=== PATIENT | male | born 1950 | race Caucasian/White ===

== ENCOUNTER 2020-08-07 16:54 | Emergency (ER) | payer BC, SELFPAY ==
[2020-08-07 17:12] VITALS: BP 124/72; PULSE 106; RESP 16; TEMP 37.5; O2SAT 98
[2020-08-07 17:17] VITALS: BP 124/72; PULSE 117; RESP 16; TEMP 37.5; O2SAT 95; BMI 27.8
--- NOTE | 2020-08-07 17:32 | XR_ITS ---
EXAMINATION: PORTABLE CHEST 1 VIEW CLINICAL INFORMATION: sob . COMPARISON: No recent pertinent prior studies are available for comparison. TECHNIQUE: Portable frontal view of the chest was obtained. FINDINGS: The lungs are well expanded. Mild chronic appearing reticular markings are seen bilaterally but no superimposed focal infiltrate, effusion, edema, or pneumothorax. Cardiac and mediastinal silhouettes are within normal limits for technique. No acute bony abnormality seen. IMPRESSION: No evidence of acute disease.
--- NOTE | 2020-08-07 17:32 | ECG_ITS ---
Test Reason : WEAKNESS Blood Pressure : / mmHG Vent. Rate : 111 BPM Atrial Rate : 111 BPM P-R Int : 162 ms QRS Dur : 088 ms QT Int : 340 ms P-R-T Axes : 063 026 052 degrees QTc Int : 462 ms Sinus tachycardia Otherwise normal ECG When compared with ECG of 17-FEB-2012 13:49, Vent. rate has increased BY 42 BPM Referred By: Gabriela Hernandez Electronically Signed By:BERTA ART MD
--- NOTE | 2020-08-07 17:38 | ED_ITS ---
HPI - General Adult General Chief complaint: General Medical Stated complaint: COUGH Time Seen by Provider: 08/07/20 17:19 Source: patient Mode of arrival: ambulatory History of Present Illness HPI narrative: 70-year-old male with no significant past medical history presenting to ED complaining of generalized weakness /malaise, fever T-max 101.7?, SOB, dry cough, nausea, and diarrhea x4 days. Reports decreased p.o. intake. Denies chest pain, abdominal pain, LE edema, recent travel, sick contacts Onset (ago): day(s) Related Data Allergies Allergy/AdvReac Type Severity Reaction Status Date / Time lisinopril Allergy Unknown cough Verified 08/07/20 21:10 Sulfa (Sulfonamide Allergy Unknown UNK, Verified 08/07/20 21:10 Antibiotics) unknown [SULFA(SULFONAMIDE ANTIBIOTICS)] Review of Systems Review of Systems: Constitutional: No Weight loss, + Fever, + Chills, No Night Sweats,+ Fatigue, + Malaise ENT/Mouth: No Hearing loss, No Ear Pain, +Nasal Congestion, No Sinus Pain, No Hoarseness, No sore throat Cardiovascular: No Chest Pain, + SOB, No Dyspnea on Exertion, No Orthopnea, No Edema, No Palpitations Respiratory: +Cough, No Sputum, No Wheezing Gastrointestinal: + Nausea, No Vomiting, + Diarrhea, No Constipation, No Abdominal pain Genitourinary: No irregular bleeding, No Dysuria, No Urinary Frequency, No Hematuria, Musculoskeletal: No joint pain, +Myalgias, No Joint Swelling Skin: No Skin Lesions, No rash Neuro: +generalized Weakness, No Numbness, No Paresthesias PMFSH Past Medical History Attestation statement: The following information was validated with the patient. Social History Social History Alcohol intake: current Alcohol intake frequency: 0-2 drinks per day Alcohol type: wine Smoking Status: Never smoker Use of substances other than those prescribed or required for medical reasons: No Advance Directives: No Advance Directives Information Provided: No Physical Exam Vital Signs: Vital Signs: Vital Signs Temp Pulse Resp BP Pulse Ox 08/07/20 22:04 94 08/07/20 22:00 98.6 F 108 H 20 130/75 95 08/07/20 20:00 105 H 20 95 08/07/20 19:30 98.9 F 103 H 20 138/87 97 08/07/20 17:17 99.5 F 117 H 16 124/72 95 08/07/20 17:12 99.5 F 106 H 16 124/72 98 Body Mass Index 27.8 Const: General: cooperative and healthy appearing Orientation/consciousness: patient oriented x3 Limitations: no limitations HENMT: Head: Yes normal to inspection Ears: hearing grossly normal bilaterally General nose exam: Normal external nose present Face and sinus: Yes normal facial exam Eyes: General: appearance normal, both eyes and all related structures EOM: EOMs intact bilaterally Neck: Neck: Yes normal visual inspection Resp: Effort & Inspection: normal respiratory effort Auscultation: clear to auscultation bilaterally, no crackles, no rales and no rhonchi Cardio: Rate: tachycardic Heart sounds: S1 normal heart sound present and S2 normal heart sound present GI: Inspection: Yes normal to inspection Palpation (GI): Soft to palpation, nontender, no guarding and not rigid Skin: Rashes: no rashes Wounds: no wounds Neuro: General: patient oriented x3 Gait exam (Neuro): Normal gait present Extrem: Other: no calf tenderness General: Yes normal to inspection and No edema Course Course Course Narrative: -1937-- leukocytosis of 15.2 > Low concern for severe sepsis as likely etiology is viral, renal function at baseline -troponin elevated 35.8> no priors/no ischemic EKG changes >> will obtain 3 hour repeat - CXR without evidence of acute disease -2216-- lactate 1.1, repeat troponin 29.1>, no delta, [place] unlikely patient ambulated around the ED with pulse ox maintaining saturation of 94% on room air lab and imaging results discussed with patient including worrisome signs and symptoms and strict return precautions. Patient verbalized understanding feel safe for discharge Medical Decision Making [facility] Narrative Medical decision making narrative: 70-year-old male with no significant past medical history presenting to ED complaining of generalized weakness /malaise, fever T-max 101.7?, SOB, dry cough, nausea, and diarrhea x4 days. On exam low- grade temp 99.5?, tachycardic, satting 95% on room air, in no respiratory distress, lungs CTA. Concern for viral syndrome/ COVID-19. Rule out pneumonia /Metabolic abnormalities. Low concern for ACS / PE Plan: EKG, labs, CXR, COVID-19, exercise test with pulse ox, reassess Lab Data Result diagrams: 08/07/20 18:31 08/07/20 18:31 Labs: Lab Results 08/07/20 08/07/20 08/07/20 Range/Units 18:30 18:31 18:31 WBC 15.2 H (4.8-10.8) X10*3/uL RBC 3.97 L (4.60-5.80) X10*6/uL Hgb 13.5 L (14.0-18.0) g/dl Hct 39.0 L (42-52) % MCV 98.2 H (80-98) fL MCH 34.0 H (27.0-33.0) pg MCHC 34.6 (31.0-36.0) g/dl RDW 11.8 (11.0-16.0) % Plt Count 222 (160-400) X10*3/uL MPV 10.5 (9.4-12.4) fL Immature Gran % (Auto) 0.4 (0.0-0.4) % Neut % (Auto) 86.0 H (45-73) % Lymph % (Auto) 5.9 L (20-40) % [place] % (Auto) 7.3 (2-11) % Eos % (Auto) 0.1 (0-4) % Baso % (Auto) 0.3 (0-2) % Lymph # (Auto) 0.9 L (1.2-4.9) X10*3/uL [place] # (Auto) 1.1 (0.1-1.2) X10*3/uL Eos # (Auto) 0.0 (0.0-0.4) X10*3/uL Baso # (Auto) 0.0 (0.0-0.2) X10*3/uL Abs Immat Gran (auto) 0.06 H (0.00-0.03) X10*3/uL Absolute Neuts (auto) 13.1 H (2.0-8.3) X10*3/uL Absolute Nucleated RBC 0.000 (0.0-0.012) X10*3/uL Nucleated RBC % (auto) 0.0 (0.0-0.2) /100WBC Hold Blue Top SEE NOTE Sodium (135-145) mmol/L Potassium (3.3-5.1) mmol/l Chloride (96-108) mmol/L Carbon Dioxide (22-29) mmol/L Anion Gap (12-20) BUN (9-16) mg/dL Creatinine (0.5-1.4) mg/dL Estim Creat Clear Calc Estimated GFR Random Glucose (60-115) mg/dL Lactic Acid (0.5-2.0) mmol/L Calcium (8.4-10.2) mg/dL Magnesium (1.6-2.6) mg/dL Ferritin (20-250) ng/mL Total Bilirubin (0.0-1.0) mg/dL Direct Bilirubin (0.0-0.5) mg/dL AST (5-37) U/L ALT (0-40) U/L Alkaline Phosphatase (39-117) U/L Lactate Dehydrogenase (118-273) U/L Troponin I High Sens 35.8 H (<3.5-35.0) ng/L B-Natriuretic Peptide 43 (<100) pg/mL Total Protein (6.5-8.0) g/dL Albumin (3.5-5.0) g/dL Lipase (8-78) U/L Procalcitonin ng/mL 08/07/20 08/07/20 08/07/20 Range/Units 18:31 18:31 20:48 WBC (4.8-10.8) X10*3/uL RBC (4.60-5.80) X10*6/uL Hgb (14.0-18.0) g/dl Hct (42-52) % MCV (80-98) fL MCH (27.0-33.0) pg MCHC (31.0-36.0) g/dl RDW (11.0-16.0) % Plt Count (160-400) X10*3/uL MPV (9.4-12.4) fL Immature Gran % (Auto) (0.0-0.4) % Neut % (Auto) (45-73) % Lymph % (Auto) (20-40) % [place] % (Auto) (2-11) % Eos % (Auto) (0-4) % Baso % (Auto) (0-2) % Lymph # (Auto) (1.2-4.9) X10*3/uL [place] # (Auto) (0.1-1.2) X10*3/uL Eos # (Auto) (0.0-0.4) X10*3/uL Baso # (Auto) (0.0-0.2) X10*3/uL Abs Immat Gran (auto) (0.00-0.03) X10*3/uL Absolute Neuts (auto) (2.0-8.3) X10*3/uL Absolute Nucleated RBC (0.0-0.012) X10*3/uL Nucleated RBC % (auto) (0.0-0.2) /100WBC Hold Blue Top Sodium 142 (135-145) mmol/L Potassium 4.1 (3.3-5.1) mmol/l Chloride 105 (96-108) mmol/L Carbon Dioxide 25 (22-29) mmol/L Anion Gap 16 (12-20) BUN 27 H (9-16) mg/dL Creatinine 1.79 H (0.5-1.4) mg/dL Estim Creat Clear Calc 43.5 Estimated GFR 38 Random Glucose 134 H (60-115) mg/dL Lactic Acid (0.5-2.0) mmol/L Calcium 9.0 (8.4-10.2) mg/dL Magnesium 2.3 (1.6-2.6) mg/dL Ferritin 393 H (20-250) ng/mL Total Bilirubin 0.7 (0.0-1.0) mg/dL Direct Bilirubin 0.3 (0.0-0.5) mg/dL AST 21 (5-37) U/L ALT 20 (0-40) U/L Alkaline Phosphatase 88 (39-117) U/L Lactate Dehydrogenase 248 (118-273) U/L Troponin I High Sens 29.1 (<3.5-35.0) ng/L B-Natriuretic Peptide (<100) pg/mL Total Protein 7.8 (6.5-8.0) g/dL Albumin 4.6 (3.5-5.0) g/dL Lipase 14 (8-78) U/L Procalcitonin 0.10 ng/mL 08/07/20 Range/Units 20:48 WBC (4.8-10.8) X10*3/uL RBC (4.60-5.80) X10*6/uL Hgb (14.0-18.0) g/dl Hct (42-52) % MCV (80-98) fL MCH (27.0-33.0) pg MCHC (31.0-36.0) g/dl RDW (11.0-16.0) % Plt Count (160-400) X10*3/uL MPV (9.4-12.4) fL Immature Gran % (Auto) (0.0-0.4) % Neut % (Auto) (45-73) % Lymph % (Auto) (20-40) % [place] % (Auto) (2-11) % Eos % (Auto) (0-4) % Baso % (Auto) (0-2) % Lymph # (Auto) (1.2-4.9) X10*3/uL [place] # (Auto) (0.1-1.2) X10*3/uL Eos # (Auto) (0.0-0.4) X10*3/uL Baso # (Auto) (0.0-0.2) X10*3/uL Abs Immat Gran (auto) (0.00-0.03) X10*3/uL Absolute Neuts (auto) (2.0-8.3) X10*3/uL Absolute Nucleated RBC (0.0-0.012) X10*3/uL Nucleated RBC % (auto) (0.0-0.2) /100WBC Hold Blue Top Sodium (135-145) mmol/L Potassium (3.3-5.1) mmol/l Chloride (96-108) mmol/L Carbon Dioxide (22-29) mmol/L Anion Gap (12-20) BUN (9-16) mg/dL Creatinine (0.5-1.4) mg/dL Estim Creat Clear Calc Estimated GFR Random Glucose (60-115) mg/dL Lactic Acid 1.1 (0.5-2.0) mmol/L Calcium (8.4-10.2) mg/dL Magnesium (1.6-2.6) mg/dL Ferritin (20-250) ng/mL Total Bilirubin (0.0-1.0) mg/dL Direct Bilirubin (0.0-0.5) mg/dL AST (5-37) U/L ALT (0-40) U/L Alkaline Phosphatase (39-117) U/L Lactate Dehydrogenase (118-273) U/L Troponin I High Sens (<3.5-35.0) ng/L B-Natriuretic Peptide (<100) pg/mL Total Protein (6.5-8.0) g/dL Albumin (3.5-5.0) g/dL Lipase (8-78) U/L Procalcitonin ng/mL Discharge Plan Discharge Clinical Impression: Acute viral syndrome
[2020-08-07 18:38] LABS: MANUAL DIFF FLAG NO
[2020-08-07 18:40] LABS: Basophils Percent Auto 0.3 % (0-2); Eosinophils Percent Auto 0.1 % (0-4); Hemoglobin 13.5 g/dl (14.0-18.0); Imm Gran Abs Auto 0.06 X10*3/uL (0.00-0.03); Imm Gran Pct Auto 0.4 % (0.0-0.4); Lymphocytes Absolute Auto 0.9 X10*3/uL (1.2-4.9); Lymphocytes Percent Auto 5.9 % (20-40); Mean Corpuscular HGB Conc 34.6 g/dl (31.0-36.0); Mean Corpuscular Volume 98.2 fL (80-98); Mean Platelet Volume 10.5 fL (9.4-12.4); Monocytes Absolute Auto 1.1 X10*3/uL (0.1-1.2); Monocytes Percent Auto 7.3 % (2-11); Neutrophils Absolute Auto 13.1 X10*3/uL (2.0-8.3); Platelet Count 222 X10*3/uL (160-400); Red Blood Count 3.97 X10*6/uL (4.60-5.80); Red Cell Distribution Width 11.8 % (11.0-16.0); White Blood Count 15.2 X10*3/uL (4.8-10.8)
[2020-08-07 19:07] LABS: Alanine Aminotransferase 20 U/L (0-40); Albumin Level 4.6 g/dL (3.5-5.0); Alkaline Phosphatase 88 U/L (39-117); Anion Gap 16 (12-20); Aspartate Amino Transferase 21 U/L (5-37); Bilirubin Direct 0.3 mg/dL (0.0-0.5); Bilirubin Total 0.7 mg/dL (0.0-1.0); Blood Urea Nitrogen 27 mg/dL (9-16); Carbon Dioxide 25 mmol/L (22-29); Chloride 105 mmol/L (96-108); Creatinine Clr Calc Pharmacy 43.5; Estimated Glomerular Filt Rate 38; Glucose Random 134 mg/dL (60-115); Lactate Dehydrogenase 248 U/L (118-273); Lipase 14 U/L (8-78); Magnesium 2.3 mg/dL (1.6-2.6); Potassium 4.1 mmol/l (3.3-5.1); Sodium 142 mmol/L (135-145); Total Protein 7.8 g/dL (6.5-8.0)
[2020-08-07] MEDS: 0.9 % Sodium Chloride 500 ML 999 ML IVCONT (19:26)
[2020-08-07 19:28] LABS: Ferritin 393 ng/mL (20-250)
[2020-08-07 19:30] VITALS: BP 138/87; PULSE 103; RESP 20; TEMP 37.2; O2SAT 97
[2020-08-07 19:37] LABS: B Type Natriuretic Peptide 43 pg/mL (<100); Troponin-I High Sensitivity 35.8 ng/L (<3.5-35.0)
[2020-08-07 20:00] VITALS: PULSE 105; RESP 20; O2SAT 95
[2020-08-07 21:13] LABS: Lactic Acid 1.1 mmol/L (0.5-2.0)
[2020-08-07 21:49] LABS: Troponin-I High Sensitivity 29.1 ng/L (<3.5-35.0)
[2020-08-07 22:00] VITALS: BP 130/75; PULSE 108; RESP 20; TEMP 37; O2SAT 95
[2020-08-07 22:04] VITALS: O2SAT 94
--- NOTE | 2020-08-07 22:04 | PC.NURSE ---
Pt ambulating in room, maintained sat at 94% or higher on room air. emilio morales aware
== END 2020-08-07 23:40 | disposition home or self-care (01) ==
PROVIDERS: Physician Assistant; Emergency Provider Emergency Medicine; PCP Internal Medicine
DX: B34.9 Viral infection, unspecified (principal); Z20.828 Contact with and (suspected) exposure to other viral communicable diseases; R50.9 Fever, unspecified
CPT/HCPCS: 36415; 71045; 80048; 80076; 82728; 83605; 83615; 83690; 83735; 83880; 84145; 84484; 85025; 87635; 93005; 99284

== ENCOUNTER 2020-08-12 12:12 | Outpatient (REF) | payer BC, SELFPAY ==
[2020-08-12 14:55] LABS: Influenza A PCR NEGATIVE (Negative); Influenza B PCR NEGATIVE (Negative)
[2020-08-12 15:03] LABS: Resp Syncy Virus RNA Qual PCR NEGATIVE (Negative)
== END 2020-08-12 12:13 | disposition home or self-care (01) ==
LOC: HO.LAB 12:12
PROVIDERS: Visit Provider Nurse Practitioner Family
DX: Z20.828 Contact with and (suspected) exposure to other viral communicable diseases (principal); R50.9 Fever, unspecified
CPT/HCPCS: 87631; 87635

== ENCOUNTER 2020-08-17 08:31 | Inpatient (IN) | payer BC, SELFPAY ==
[2020-08-17] VITALS (11 sets, daily range): BP systolic 143–186; BP diastolic 84–111; PULSE 95–105; RESP 16–20; TEMP 36.3–37.7; O2SAT 94–100; BMI 25.6
--- NOTE | 2020-08-17 08:56 | ECG_ITS ---
Test Reason : UPPER RESP Blood Pressure : / mmHG Vent. Rate : 108 BPM Atrial Rate : 108 BPM P-R Int : 140 ms QRS Dur : 088 ms QT Int : 402 ms P-R-T Axes : 063 037 -08 degrees QTc Int : 538 ms Sinus tachycardia with Premature supraventricular complexes T wave abnormality, consider anterolateral ischemia Abnormal ECG When compared with ECG of 07-AUG-2020 17:55, Premature supraventricular complexes are now Present Inverted T waves have replaced nonspecific T wave abnormality in Inferior leads T wave inversion now evident in Anterolateral leads Referred By: Dara Edward Electronically Signed By:BERTA ART MD
--- NOTE | 2020-08-17 08:58 | ED_ITS ---
HPI - URI/Sore Throat General Chief Complaint: Upper Respiratory Symptoms Stated Complaint: sob,cough,fever Time Seen by Provider: 08/17/20 08:41 Source: patient Mode of arrival: ambulatory Limitations: no limitations History of Present Illness HPI Narrative: 70-year-old male with a past medical history of hypertension, CKD, and osteoporosis here with multiple complaints. The patient tells me starting August 04 he had fever, diarrhea, chills. he was seen here August 07 and had labs, COVID testing and chest x-ray. He was sent home with supportive care. His initial COVID test was negative. He was seen at Urgent Care on August 12 and was tested for COVID and flu which were negative again. He did speak to his primary care doctor and they did a 5 day course of azithromycin which he completed yesterday. He tells me he continues to have intermittent fevers with a max temp of 101.7 degrees. These do not occur every day and he may go 1 or 2 days without a fever. When he has a fever he will have chills and body aches. He has had intermittent diarrhea with up to 2 episodes daily and generalized abdominal pain with no vomiting. He also has shortness of breath with exertion. He tells me he can only walk 4-5 steps and experiences dyspnea with cough. He does have albuterol inhaler at home which she has been using every 4-6 hours with continued dry cough. No chest pain. No leg pain or swelling. He has had a 10lb weight loss in last 2 weeks. MD elicited complaint: fever and cough Onset (ago): week(s) Consistency: intermittent Severity: mild Able to tolerate fluids by mouth: Yes Exacerbating factors: exertion and speaking Relieving factors: rest Associated symptoms: fever, chills, myalgias, cough, shortness of breath, abdominal pain and diarrhea Treatments prior to arrival: none Related Data Home Medications Medication Instructions Recorded Confirmed colchicine 0.6 mg tablet 0.6 mg PO DAILY PRN 08/12/20 08/17/20 denosumab 60 mg/mL subcutaneous 60 mg SUBCUT [id number] 08/12/20 08/17/20 syringe losartan 50 mg tablet 50 mg PO DAILY 08/12/20 08/17/20 Previous Rx's Medication Instructions Recorded albuterol sulfate 2 puff INHALATION Q4-6H PRN #6.7 g 08/07/20 benzonatate [Tessalon Perles] 100 mg PO BID PRN #14 cap 08/07/20 ondansetron 4 mg disintegrating 4 mg PO Q6H PRN #60 tab 08/12/20 tablet Allergies Allergy/AdvReac Type Severity Reaction Status Date / Time lisinopril Allergy Unknown cough Verified 08/12/20 11:44 Sulfa (Sulfonamide Allergy Unknown UNK, Verified 08/12/20 11:44 Antibiotics) unknown [SULFA(SULFONAMIDE ANTIBIOTICS)] Review of Systems Constitutional: Constitutional: Reports no additional constitutional complaints, Reports body ache(s), Reports chills, Reports fatigue, Reports fever(s), Denies headache(s) and Denies weakness Eyes: Eyes: Reports no additional eye complaints and Denies change in vision ENT: Reports system reviewed and no additional complaints, except as documented, Denies ear discharge, Denies otalgia, Denies headache(s) and Denies sore throat Cardiovascular: Cardiovascular: Reports no additional cardiovascular complaints, Denies chest pain, Denies pedal edema, Denies leg edema, Denies lightheadedness and Reports dyspnea on exertion Respiratory: Respiratory: Reports no additional respiratory complaints, Reports cough and Reports dyspnea on exertion Gastrointestinal: Gastrointestinal: Reports no additional gastrointestinal complaints, Reports abdominal pain, Reports diarrhea, Denies nausea and Denies vomiting Genitourinary: Genitourinary: Reports no additional male genitourinary complaints, Denies dysuria, Denies flank pain, Denies urinary frequency, Denies urinary hesitancy, Denies urinary incontinence and Denies urinary urgency Musculoskeletal: Musculoskeletal: Reports no additional musculoskeletal complaints, Denies back pain, Denies arthralgias, Denies joint swelling, Denies numbness, Denies radiating pain into limb and Denies tingling Integumentary/Breasts: Skin/Breast: Reports system reviewed and no additional complaints, except as docu and Denies rash Neurologic: Reports system reviewed and no additional complaints, except as documented, Denies Abnormal speech present, Denies headache(s), Denies numbness, Denies tingling and Denies weakness Endocrine: Endocrine: Reports fatigue PMFSH Past Medical History Attestation statement: The following information was validated with the patient. Source: old records reviewed, obtained from family and nursing notes reviewed Medical History (Updated 08/17/20 @ 14:47 by Faye Childers NP) Hypertension Osteoporosis Surgical History (Updated 08/17/20 @ 09:10 by Dara Edward NP) History of appendectomy Family History Family History (Updated 08/17/20 @ 14:22 by Faye Childers NP) Brother Coronary artery disease Social History Social History Alcohol intake: current Alcohol intake frequency: 0-2 drinks per day Alcohol type: wine Smoking Status: Never smoker Use of substances other than those prescribed or required for medical reasons: No Advance Directives: Yes Advance Directives Information Provided: Yes Advance Directives on File: No Physical Exam Vital Signs: Vital Signs: Vital Signs Temp Pulse Resp BP Pulse Ox 08/17/20 14:52 99.4 F 99 18 144/86 H 08/17/20 13:06 99.2 F 100 16 163/90 H 100 08/17/20 11:56 99.9 F 102 H 18 153/84 H 94 08/17/20 10:25 105 H 18 162/95 H 08/17/20 09:34 97 08/17/20 08:44 98.1 F 95 18 186/100 H 97 Body Mass Index 25.6 Const: General: cooperative, healthy appearing, comfortable and no acute distress Orientation/consciousness: patient oriented x3 Limitations: no limitations HENMT: Head: Yes normal to inspection Ears: hearing grossly normal bilaterally General nose exam: Normal external nose present Face and sinus: Yes normal facial exam Mouth: Normal oral and palatal mucosa present Throat: Yes posterior oropharynx normal Eyes: General: appearance normal, both eyes and all related structures Pupils: Equal, round and reactive pupils present Neck: Neck: Yes normal visual inspection Chest: Chest palpation & inspection: normal inspection of the chest Resp: Other: Frequent bronchospastic cough. The patient speaks full sentences but at the and has to pause to catch his breath. Effort & Inspection: normal respiratory effort Auscultation: clear to auscultation bilaterally Cardio: Rate: regular rate Rhythm: regular rhythm Peripheral pulses: Peripheral pulses 2+ throughout GI: Inspection: Yes normal to inspection Palpation (GI): Soft to palpation and Tenderness to palpation present (GI) ( mild diffuse tenderness. No rebound or guarding.) Auscultation: normal bowel sounds Back/Spine/Pelvis: Thoracic/Lumbar Spine: thoracic and lumbar spine normal to inspection Skin: General skin exam: no rashes or lesions noted Neuro: General: patient oriented x3, no focal motor deficits and normal sensation to monofilament Cranial nerves: Yes Equal, round and reactive pupils present Cognition (Neuro): normal cognition Speech: No Abnormal speech present Gait exam (Neuro): Normal gait present Motor exam (neuro): 5/5 motor strength present throughout Extrem: General: Yes normal to inspection Course Course Course Narrative: 70-year-old male here with complaints of intermittent fever, dry cough, shortness of breath with exertion, diarrhea and abdominal pain for the last few weeks with negative COVID testing and x-rays. Completed a course of antibiotics with continued symptoms. On arrival the patient is alert and oriented. He has no fever on arrival. He does have some mild tachypnea and general abdominal pain with no focal belly pain. Will need labs including blood cultures, lactic acid, EKG and chest x-ray. Will likely need additional imaging of chest and abdomen and pelvis. 1000- Labs show an elevated BNP and troponin. EKG shows nonspecific changes wi th no focal ischemia. The patient denies chest pain. Unclear source. Chest x- ray not consistent with vascular congestion. Patient has no history of CHF or complaints of chest pain. Added on laboratory markers and D-dimer. chest x-ray looks like a possible left lower lobe pneumonia however will check chest CT and CT abdomen and pelvis. Antibiotics ordered for presumed PNA. 1050- D-dimer elevated. Added on V/Q scan as cannot do a CTA with patient's baseline renal function. 1145- CT chest shows emphysema, patchy ground-glass opacities in both upper lobes and patchy consolidation in the left lower lobe. May represent small c consolidation. Viral panel added. May be from viral source however cannot completely rule out an underlying bacterial process. Antibiotics have already b een ordered. V/Q scan shows high probability bilateral pulmonary embolisms. patient ambulated around the room with significant shortness of breath and room air saturation 93-94%. will need admission. Call out to hospitalist to discuss. Heparin ordered. 1200-3hr troponin pending. 1400- repeat troponin trending down. Viral respiratory panel unremarkable. Discussed with Faye VICKERS who accepted admission. CCT 30 minutes (multiple re-evaluations, review of imaging, discussion with radiologist). MDM - URI/Sore Throat MDM Narrative Medical decision making narrative: Considered viral syndrome, underlying bacterial process ( pneumonia / UTI,), CHF, PE, diverticulitis versus ischemic colitis Viral panel negative however may be false negative as patient has COVID symptoms with imaging concerning for COVID. less likely CHF with no signs or symptoms of fluid overload and only mildly elevated BNP. Less likely diverticulitis or ischemic colitis unremarkable abdomen imaging. Medical Records Attestation: I reviewed the patient's medical records. Lab Data Attestation: I reviewed the patient's lab results. Result diagrams: 08/17/20 13:05 08/17/20 09:06 Labs: Lab Results 08/17/20 08/17/20 08/17/20 Range/Units 09:06 09:06 09:06 WBC 11.4 H (4.8-10.8) X10*3/uL RBC 3.61 L (4.60-5.80) X10*6/uL Hgb 11.8 L (14.0-18.0) g/dl Hct 35.3 L (42-52) % MCV 97.8 (80-98) fL MCH 32.7 (27.0-33.0) pg MCHC 33.4 (31.0-36.0) g/dl RDW 11.7 (11.0-16.0) % Plt Count 410 H D (160-400) X10*3/uL MPV 10.6 (9.4-12.4) fL Immature Gran % (Auto) 0.4 (0.0-0.4) % Neut % (Auto) 79.4 H (45-73) % Lymph % (Auto) 10.0 L (20-40) % [place] % (Auto) 9.2 (2-11) % Eos % (Auto) 0.6 (0-4) % Baso % (Auto) 0.4 (0-2) % Lymph # (Auto) 1.1 L (1.2-4.9) X10*3/uL [place] # (Auto) 1.0 (0.1-1.2) X10*3/uL Eos # (Auto) 0.1 (0.0-0.4) X10*3/uL Baso # (Auto) 0.1 (0.0-0.2) X10*3/uL Abs Immat Gran (auto) 0.04 H (0.00-0.03) X10*3/uL Absolute Neuts (auto) 9.0 H (2.0-8.3) X10*3/uL Absolute Nucleated RBC 0.000 (0.0-0.012) X10*3/uL Nucleated RBC % (auto) 0.0 (0.0-0.2) /100WBC ESR (0-15) MM/HR PT 17.7 H (10.8-13.0) SEC INR 1.5 H (0.9-1.1) APTT 31.8 (24.1-38.0) SEC PTT (Heparin Protocol) (53-77.9) SEC D-Dimer 2309 NG/ML Sodium 140 (135-145) mmol/L Potassium 4.2 (3.3-5.1) mmol/l Chloride 106 (96-108) mmol/L Carbon Dioxide 21 L (22-29) mmol/L Anion Gap 17 (12-20) BUN 30 H (9-16) mg/dL Creatinine 1.89 H (0.5-1.4) mg/dL Estim Creat Clear Calc 38.0 Estimated GFR 36 Random Glucose 137 H (60-115) mg/dL Lactic Acid (0.5-2.0) mmol/L Calcium 8.3 L (8.4-10.2) mg/dL Magnesium 2.6 (1.6-2.6) mg/dL Total Bilirubin 0.6 (0.0-1.0) mg/dL Direct Bilirubin 0.3 (0.0-0.5) mg/dL AST 27 (5-37) U/L ALT 53 H (0-40) U/L Alkaline Phosphatase 82 (39-117) U/L Troponin I High Sens (<3.5-35.0) ng/L C-Reactive Protein 11.56 H (< or = 0.50) mg/dL B-Natriuretic Peptide (<100) pg/mL Total Protein 7.0 (6.5-8.0) g/dL Albumin 3.8 (3.5-5.0) g/dL Lipase 22 (8-78) U/L Urine Color Urine Appearance Urine pH (5.0-8.0) Ur Specific [place] (1.005-1.025) Urine Protein (NEG-TRACE) MG/DL Urine Glucose (UA) (NEG) MG/DL Urine Ketones (NEG) MG/DL Urine Blood (NEG) Urine Nitrite (NEG) Ur Leukocyte Esterase (NEG) Urine RBC (0) /HPF Urine WBC (0-4) /HPF Ur Squamous Epith Cells /LPF Urine Bacteria /LPF Urine Mucus /LPF Respiratory Panel [place] Adenovirus (Rapid PCR) (Not Detect.) B.pert (TEM-PCR) (Not Detect.) B.parapertussis DNA PCR (Not Detect.) C. pneumoniae DNA (PCR) (Not Detect.) Coronavirus OC43 (PCR) (Not Detect.) Coronavirus HKU1 (PCR) (Not Detect.) Coronavirus 229E (PCR) (Not Detect.) Coronavirus NL63 (PCR) (Not Detect.) Human Metapneumovir PCR (Not Detect.) Influenza A (RT-PCR) (Not Detect.) Influenza B (RT-PCR) (Not Detect.) M. pneumoniae (PCR) (Not Detect.) Parainfluenza 1 (PCR) (Not Detect.) Parainfluenza 2 (PCR) (Not Detect.) Parainfluenza 3 (PCR) (Not Detect.) Parainfluenza 4 (PCR) (Not Detect.) RSV (PCR) (Not Detect.) Entero/Rhino (PCR) (Not Detect.) SARS-CoV-2 RNA (RT-PCR) (Not Detect.) 08/17/20 08/17/20 08/17/20 Range/Units 09:06 09:07 09:07 WBC (4.8-10.8) X10*3/uL RBC (4.60-5.80) X10*6/uL Hgb (14.0-18.0) g/dl Hct (42-52) % MCV (80-98) fL MCH (27.0-33.0) pg MCHC (31.0-36.0) g/dl RDW (11.0-16.0) % Plt Count (160-400) X10*3/uL MPV (9.4-12.4) fL Immature Gran % (Auto) (0.0-0.4) % Neut % (Auto) (45-73) % Lymph % (Auto) (20-40) % [place] % (Auto) (2-11) % Eos % (Auto) (0-4) % Baso % (Auto) (0-2) % Lymph # (Auto) (1.2-4.9) X10*3/uL [place] # (Auto) (0.1-1.2) X10*3/uL Eos # (Auto) (0.0-0.4) X10*3/uL Baso # (Auto) (0.0-0.2) X10*3/uL Abs Immat Gran (auto) (0.00-0.03) X10*3/uL Absolute Neuts (auto) (2.0-8.3) X10*3/uL Absolute Nucleated RBC (0.0-0.012) X10*3/uL Nucleated RBC % (auto) (0.0-0.2) /100WBC ESR 63 H (0-15) MM/HR PT (10.8-13.0) SEC INR (0.9-1.1) APTT (24.1-38.0) SEC PTT (Heparin Protocol) (53-77.9) SEC D-Dimer NG/ML Sodium (135-145) mmol/L Potassium (3.3-5.1) mmol/l Chloride (96-108) mmol/L Carbon Dioxide (22-29) mmol/L Anion Gap (12-20) BUN (9-16) mg/dL Creatinine (0.5-1.4) mg/dL Estim Creat Clear Calc Estimated GFR Random Glucose (60-115) mg/dL Lactic Acid 1.7 (0.5-2.0) mmol/L Calcium (8.4-10.2) mg/dL Magnesium (1.6-2.6) mg/dL Total Bilirubin (0.0-1.0) mg/dL Direct Bilirubin (0.0-0.5) mg/dL AST (5-37) U/L ALT (0-40) U/L Alkaline Phosphatase (39-117) U/L Troponin I High Sens 422.3 H D (<3.5-35.0) ng/L C-Reactive Protein (< or = 0.50) mg/dL B-Natriuretic Peptide 487 H (<100) pg/mL Total Protein (6.5-8.0) g/dL Albumin (3.5-5.0) g/dL Lipase (8-78) U/L Urine Color Urine Appearance Urine pH (5.0-8.0) Ur Specific [place] (1.005-1.025) Urine Protein (NEG-TRACE) MG/DL Urine Glucose (UA) (NEG) MG/DL Urine Ketones (NEG) MG/DL Urine Blood (NEG) Urine Nitrite (NEG) Ur Leukocyte Esterase (NEG) Urine RBC (0) /HPF Urine WBC (0-4) /HPF Ur Squamous Epith Cells /LPF Urine Bacteria /LPF Urine Mucus /LPF Respiratory Panel [place] Adenovirus (Rapid PCR) (Not Detect.) B.pert (TEM-PCR) (Not Detect.) B.parapertussis DNA PCR (Not Detect.) C. pneumoniae DNA (PCR) (Not Detect.) Coronavirus OC43 (PCR) (Not Detect.) Coronavirus HKU1 (PCR) (Not Detect.) Coronavirus 229E (PCR) (Not Detect.) Coronavirus NL63 (PCR) (Not Detect.) Human Metapneumovir PCR (Not Detect.) Influenza A (RT-PCR) (Not Detect.) Influenza B (RT-PCR) (Not Detect.) M. pneumoniae (PCR) (Not Detect.) Parainfluenza 1 (PCR) (Not Detect.) Parainfluenza 2 (PCR) (Not Detect.) Parainfluenza 3 (PCR) (Not Detect.) Parainfluenza 4 (PCR) (Not Detect.) RSV (PCR) (Not Detect.) Entero/Rhino (PCR) (Not Detect.) SARS-CoV-2 RNA (RT-PCR) (Not Detect.) 08/17/20 08/17/20 08/17/20 Range/Units 11:46 12:06 13:05 WBC 12.1 H (4.8-10.8) X10*3/uL RBC 3.16 L (4.60-5.80) X10*6/uL Hgb 10.6 L (14.0-18.0) g/dl Hct 30.7 L (42-52) % MCV 97.2 (80-98) fL MCH 33.5 H (27.0-33.0) pg MCHC 34.5 (31.0-36.0) g/dl RDW 11.7 (11.0-16.0) % Plt Count 361 (160-400) X10*3/uL MPV 10.5 (9.4-12.4) fL Immature Gran % (Auto) (0.0-0.4) % Neut % (Auto) (45-73) % Lymph % (Auto) (20-40) % [place] % (Auto) (2-11) % Eos % (Auto) (0-4) % Baso % (Auto) (0-2) % Lymph # (Auto) (1.2-4.9) X10*3/uL [place] # (Auto) (0.1-1.2) X10*3/uL Eos # (Auto) (0.0-0.4) X10*3/uL Baso # (Auto) (0.0-0.2) X10*3/uL Abs Immat Gran (auto) (0.00-0.03) X10*3/uL Absolute Neuts (auto) (2.0-8.3) X10*3/uL Absolute Nucleated RBC 0.000 (0.0-0.012) X10*3/uL Nucleated RBC % (auto) 0.0 (0.0-0.2) /100WBC ESR (0-15) MM/HR PT (10.8-13.0) SEC INR (0.9-1.1) APTT (24.1-38.0) SEC PTT (Heparin Protocol) (53-77.9) SEC D-Dimer NG/ML Sodium (135-145) mmol/L Potassium (3.3-5.1) mmol/l Chloride (96-108) mmol/L Carbon Dioxide (22-29) mmol/L Anion Gap (12-20) BUN (9-16) mg/dL Creatinine (0.5-1.4) mg/dL Estim Creat Clear Calc Estimated GFR Random Glucose (60-115) mg/dL Lactic Acid (0.5-2.0) mmol/L Calcium (8.4-10.2) mg/dL Magnesium (1.6-2.6) mg/dL Total Bilirubin (0.0-1.0) mg/dL Direct Bilirubin (0.0-0.5) mg/dL AST (5-37) U/L ALT (0-40) U/L Alkaline Phosphatase (39-117) U/L Troponin I High Sens 271.2 H (<3.5-35.0) ng/L C-Reactive Protein (< or = 0.50) mg/dL B-Natriuretic Peptide (<100) pg/mL Total Protein (6.5-8.0) g/dL Albumin (3.5-5.0) g/dL Lipase (8-78) U/L Urine Color Urine Appearance Urine pH (5.0-8.0) Ur Specific [place] (1.005-1.025) Urine Protein (NEG-TRACE) MG/DL Urine Glucose (UA) (NEG) MG/DL Urine Ketones (NEG) MG/DL Urine Blood (NEG) Urine Nitrite (NEG) Ur Leukocyte Esterase (NEG) Urine RBC (0) /HPF Urine WBC (0-4) /HPF Ur Squamous Epith Cells /LPF Urine Bacteria /LPF Urine Mucus /LPF Respiratory Panel Reynolds See Note Adenovirus (Rapid PCR) Not Detected (Not Detect.) B.pert (TEM-PCR) Not Detected (Not Detect.) B.parapertussis DNA PCR Not Detected (Not Detect.) C. pneumoniae DNA (PCR) Not Detected (Not Detect.) Coronavirus OC43 (PCR) Not Detected (Not Detect.) Coronavirus HKU1 (PCR) Not Detected (Not Detect.) Coronavirus 229E (PCR) Not Detected (Not Detect.) Coronavirus NL63 (PCR) Not Detected (Not Detect.) Human Metapneumovir PCR Not Detected (Not Detect.) Influenza A (RT-PCR) Not Detected (Not Detect.) Influenza B (RT-PCR) Not Detected (Not Detect.) M. pneumoniae (PCR) Not Detected (Not Detect.) Parainfluenza 1 (PCR) Not Detected (Not Detect.) Parainfluenza 2 (PCR) Not Detected (Not Detect.) Parainfluenza 3 (PCR) Not Detected (Not Detect.) Parainfluenza 4 (PCR) Not Detected (Not Detect.) RSV (PCR) Not Detected (Not Detect.) Entero/Rhino (PCR) Not Detected (Not Detect.) SARS-CoV-2 RNA (RT-PCR) Not Detected (Not Detect.) 08/17/20 08/17/20 Range/Units 13:05 14:05 WBC (4.8-10.8) X10*3/uL RBC (4.60-5.80) X10*6/uL Hgb (14.0-18.0) g/dl Hct (42-52) % MCV (80-98) fL MCH (27.0-33.0) pg MCHC (31.0-36.0) g/dl RDW (11.0-16.0) % Plt Count (160-400) X10*3/uL MPV (9.4-12.4) fL Immature Gran % (Auto) (0.0-0.4) % Neut % (Auto) (45-73) % Lymph % (Auto) (20-40) % [place] % (Auto) (2-11) % Eos % (Auto) (0-4) % Baso % (Auto) (0-2) % Lymph # (Auto) (1.2-4.9) X10*3/uL [place] # (Auto) (0.1-1.2) X10*3/uL Eos # (Auto) (0.0-0.4) X10*3/uL Baso # (Auto) (0.0-0.2) X10*3/uL Abs Immat Gran (auto) (0.00-0.03) X10*3/uL Absolute Neuts (auto) (2.0-8.3) X10*3/uL Absolute Nucleated RBC (0.0-0.012) X10*3/uL Nucleated RBC % (auto) (0.0-0.2) /100WBC ESR (0-15) MM/HR PT 19.7 H (10.8-13.0) SEC INR 1.7 H (0.9-1.1) APTT (24.1-38.0) SEC PTT (Heparin Protocol) 67.1 (53-77.9) SEC D-Dimer NG/ML Sodium (135-145) mmol/L Potassium (3.3-5.1) mmol/l Chloride (96-108) mmol/L Carbon Dioxide (22-29) mmol/L Anion Gap (12-20) BUN (9-16) mg/dL Creatinine (0.5-1.4) mg/dL Estim Creat Clear Calc Estimated GFR Random Glucose (60-115) mg/dL Lactic Acid (0.5-2.0) mmol/L Calcium (8.4-10.2) mg/dL Magnesium (1.6-2.6) mg/dL Total Bilirubin (0.0-1.0) mg/dL Direct Bilirubin (0.0-0.5) mg/dL AST (5-37) U/L ALT (0-40) U/L Alkaline Phosphatase (39-117) U/L Troponin I High Sens (<3.5-35.0) ng/L C-Reactive Protein (< or = 0.50) mg/dL B-Natriuretic Peptide (<100) pg/mL Total Protein (6.5-8.0) g/dL Albumin (3.5-5.0) g/dL Lipase (8-78) U/L Urine Color YELLOW Urine Appearance CLEAR Urine pH 5.5 (5.0-8.0) Ur Specific [place] 1.020 (1.005-1.025) Urine Protein TRACE (NEG-TRACE) MG/DL Urine Glucose (UA) NEG (NEG) MG/DL Urine Ketones 5 (NEG) MG/DL Urine Blood TRACE (NEG) Urine Nitrite NEG (NEG) Ur Leukocyte Esterase NEG (NEG) Urine RBC 0-2 (0) /HPF Urine WBC 0-2 (0-4) /HPF Ur Squamous Epith Cells NONE /LPF Urine Bacteria NONE /LPF Urine Mucus 1+ /LPF Respiratory Panel [place] Adenovirus (Rapid PCR) (Not Detect.) B.pert (TEM-PCR) (Not Detect.) B.parapertussis DNA PCR (Not Detect.) C. pneumoniae DNA (PCR) (Not Detect.) Coronavirus OC43 (PCR) (Not Detect.) Coronavirus HKU1 (PCR) (Not Detect.) Coronavirus 229E (PCR) (Not Detect.) Coronavirus NL63 (PCR) (Not Detect.) Human Metapneumovir PCR (Not Detect.) Influenza A (RT-PCR) (Not Detect.) Influenza B (RT-PCR) (Not Detect.) M. pneumoniae (PCR) (Not Detect.) Parainfluenza 1 (PCR) (Not Detect.) Parainfluenza 2 (PCR) (Not Detect.) Parainfluenza 3 (PCR) (Not Detect.) Parainfluenza 4 (PCR) (Not Detect.) RSV (PCR) (Not Detect.) Entero/Rhino (PCR) (Not Detect.) SARS-CoV-2 RNA (RT-PCR) (Not Detect.) Imaging Data CT abd/chest: Attestation: I personally reviewed and interpreted this imaging study as follows: Radiologist's impression: EXAMINATION: CT CHEST, ABDOMEN AND PELVIS WITHOUT CONTRAST. CLINICAL INFORMATION: Fevers known etiology. SOB. Rule out pneumonia. COMPARISON: None TECHNIQUE: 5 mm thin axial and reformatted 3 mm thin sagittal and coronal images of chest, abdomen and pelvis were obtained. DLP 1010 mGy FINDINGS: Chest: There is centrilobular emphysema. There is moderate patchy groundglass opacity right upper lobe measuring approximately 3.7 cm image 15/6, patchy groundglass opacity left upper lobe medially image 29/6. There is a subpleural base patchy opacity left lower lobe image 36/6, 39/[address] to image 48/6 there are a few scattered micronodules visualized. The central trachea and the bronchi widely patent. No abnormal size mediastinal lymph nodes seen. Heart size and the great vessels are normal caliber. The axilla and the chest wall appears unremarkable. There is no pleural effusion or pneumothorax. The axilla and the chest wall appears unremarkable. Abdomen and pelvis: Visualized liver, spleen, pancreas and bilateral adrenal glands are unremarkable. There are no radiopaque gallstones or wall thickening. There are punctate radiopaque calculi in the upper pole left kidney and along the calyces of mid and lower pole right kidney. No caliectasis or hydronephrosis seen. There is mild bilateral perinephric stranding. The abdominal wall appears unremarkable. There is scattered stool and gas seen throughout the colon without distention. The small bowel loops are normal caliber. There are surgical bony in the right lower quadrant from previous appendectomy. Abdominal aorta is normal caliber. No retrocaval lymph nodes seen. Imaging through the pelvis reveal scattered diverticuli in the sigmoid colon. No free fluid or free air. The prostate gland is normal size with central gland, constipation. Bone windows reveal no lytic or sclerotic process. CT/CT chest wo con IMPRESSION: Emphysema. Patchy groundglass opacity in both upper lobes and patchy consolidation subpleural-based left lower lobe may represent small consolidation with underlying airway disease. No abnormal chest, abdomen pelvis lymphadenopathy. No pleural effusion. No acute process seen in the abdomen except for scattered sigmoid reticulosis without diverticulitis. Evidence of previous appendectomy. Bilateral perinephric stranding with no hydronephrosis seen. There is a punctate nonobstructive radiopaque calculi upper pole left kidney and along the calyces of mid and lower pole right kidney. Chest x-ray: Attestation: I personally reviewed and interpreted this imaging study as follows: Radiologist's impression: EXAMINATION: XR CHEST CLINICAL INFORMATION: Shortness of breath and fever COMPARISON: Previous chest x-ray 08/07/2020 TECHNIQUE: 2 views of the chest were obtained. FINDINGS: The cardiac and mediastinal contours are stable. There may be central bronchial wall thickening. There is question of a small infiltrate in the left lower lobe. The lungs are otherwise clear. There is no pleural effusion. Bony structures are unremarkable. XR/XR chest 2V IMPRESSION: Question left lower lobe infiltrate. ECG Data Attestation: I personally reviewed and interpreted this ECG as follows: Interpretation: St with rate 108, prolonged QT 538, normal pr, normal qrs, non speccific St changes with inverted t waves leads [id number] Discharge Plan Discharge Clinical Impression: Pulmonary embolism, Pneumonia, CKD (chronic kidney disease), Leukocytosis, Elevated troponin Patient Disposition: Admitted As Inpatient
[2020-08-17] MEDS: Albuterol/Iprat 2.5/0.5MG 3 ML AMPUL.NEB INHALE (09:13)
[2020-08-17 09:20] LABS: MANUAL DIFF FLAG NO
[2020-08-17 09:21] LABS: Basophils Absolute Auto 0.1 X10*3/uL (0.0-0.2); Basophils Percent Auto 0.4 % (0-2); Eosinophils Absolute Auto 0.1 X10*3/uL (0.0-0.4); Eosinophils Percent Auto 0.6 % (0-4); Hematocrit 35.3 % (42-52); Hemoglobin 11.8 g/dl (14.0-18.0); Imm Gran Abs Auto 0.04 X10*3/uL (0.00-0.03); Imm Gran Pct Auto 0.4 % (0.0-0.4); Lymphocytes Absolute Auto 1.1 X10*3/uL (1.2-4.9); Mean Corpuscular HGB Conc 33.4 g/dl (31.0-36.0); Mean Corpuscular Hemoglobin 32.7 pg (27.0-33.0); Mean Corpuscular Volume 97.8 fL (80-98); Mean Platelet Volume 10.6 fL (9.4-12.4); Monocytes Percent Auto 9.2 % (2-11); Neutrophils Percent Auto 79.4 % (45-73); Platelet Count 410 X10*3/uL (160-400); Red Blood Count 3.61 X10*6/uL (4.60-5.80); Red Cell Distribution Width 11.7 % (11.0-16.0); White Blood Count 11.4 X10*3/uL (4.8-10.8)
--- NOTE | 2020-08-17 09:29 | PC.NURSE ---
EVALUATED BY [employer], TREATMENT PLAN REVIEWED DWITH PT, PT IS AGREAABLE IV PLACED, LABS DRAWN MANUFACTURING FINANCE MANAGER REVEALS ST, NO ECTOPY
[2020-08-17 09:31] LABS: INTERNATIONAL NORM RATIO 1.5 (0.9-1.1); Prothrombin Time 17.7 SEC (10.8-13.0)
[2020-08-17 09:41] LABS: Lactic Acid 1.7 mmol/L (0.5-2.0)
--- NOTE | 2020-08-17 09:44 | PC.NURSE ---
1 LITER OF NS STARTED EMAR WONT ACCEPT THIS
[2020-08-17 09:45] LABS: Alanine Aminotransferase 53 U/L (0-40); Albumin Level 3.8 g/dL (3.5-5.0); Alkaline Phosphatase 82 U/L (39-117); Anion Gap 17 (12-20); Aspartate Amino Transferase 27 U/L (5-37); Bilirubin Direct 0.3 mg/dL (0.0-0.5); Bilirubin Total 0.6 mg/dL (0.0-1.0); Blood Urea Nitrogen 30 mg/dL (9-16); Calcium 8.3 mg/dL (8.4-10.2); Carbon Dioxide 21 mmol/L (22-29); Chloride 106 mmol/L (96-108); Estimated Glomerular Filt Rate 36; Glucose Random 137 mg/dL (60-115); Lipase 22 U/L (8-78); Magnesium 2.6 mg/dL (1.6-2.6); Potassium 4.2 mmol/l (3.3-5.1); Sodium 140 mmol/L (135-145)
[2020-08-17 09:55] LABS: B Type Natriuretic Peptide 487 pg/mL (<100); Troponin-I High Sensitivity 422.3 ng/L (<3.5-35.0)
[2020-08-17] MEDS: 0.9 % Sodium Chloride 1,000 ML 999 ML IV (10:00)
--- NOTE | 2020-08-17 10:01 | CT_ITS ---
EXAMINATION: CT CHEST, ABDOMEN AND PELVIS WITHOUT CONTRAST. CLINICAL INFORMATION: Fevers known etiology. SOB. Rule out pneumonia. COMPARISON: None TECHNIQUE: 5 mm thin axial and reformatted 3 mm thin sagittal and coronal images of chest, abdomen and pelvis were obtained. DLP 1010 mGy FINDINGS: Chest: There is centrilobular emphysema. There is moderate patchy groundglass opacity right upper lobe measuring approximately 3.7 cm image 15/6, patchy groundglass opacity left upper lobe medially image 29/6. There is a subpleural base patchy opacity left lower lobe image 36/6, 39/[address] to image 48/6 there are a few scattered micronodules visualized. The central trachea and the bronchi widely patent. No abnormal size mediastinal lymph nodes seen. Heart size and the great vessels are normal caliber. The axilla and the chest wall appears unremarkable. There is no pleural effusion or pneumothorax. The axilla and the chest wall appears unremarkable. Abdomen and pelvis: Visualized liver, spleen, pancreas and bilateral adrenal glands are unremarkable. There are no radiopaque gallstones or wall thickening. There are punctate radiopaque calculi in the upper pole left kidney and along the calyces of mid and lower pole right kidney. No caliectasis or hydronephrosis seen. There is mild bilateral perinephric stranding. The abdominal wall appears unremarkable. There is scattered stool and gas seen throughout the colon without distention. The small bowel loops are normal caliber. There are surgical bony in the right lower quadrant from previous appendectomy. Abdominal aorta is normal caliber. No retrocaval lymph nodes seen. Imaging through the pelvis reveal scattered diverticuli in the sigmoid colon. No free fluid or free air. The prostate gland is normal size with central gland, constipation. Bone windows reveal no lytic or sclerotic process. CT/CT abdomen pelvis wo con IMPRESSION: Emphysema. Patchy groundglass opacity in both upper lobes and patchy consolidation subpleural-based left lower lobe may represent small consolidation with underlying airway disease. No abnormal chest, abdomen pelvis lymphadenopathy. No pleural effusion. No acute process seen in the abdomen except for scattered sigmoid reticulosis without diverticulitis. Evidence of previous appendectomy. Bilateral perinephric stranding with no hydronephrosis seen. There is a punctate nonobstructive radiopaque calculi upper pole left kidney and along the calyces of mid and lower pole right kidney.
[2020-08-17] MEDS: cefTRIAXone sodium 1 GM in 0.9 % Sodium Chloride 50 ML IV (10:21)
--- NOTE | 2020-08-17 10:26 | PC.NURSE ---
TRANSPORTED TO CT SCAN
--- NOTE | 2020-08-17 10:41 | NM_ITS ---
EXAMINATION: PULMONARY PERFUSION STUDY CLINICAL INFORMATION: Shortness of breath, cough, elevated d-dimer. COMPARISON: No previous lung scan is available for comparison. Radiographs of the chest dated 08/17/2020, the same date as this lung scan, are available for comparison. CT scan of the chest also dated 08/17/2020 is available for comparison. TECHNIQUE: Following the intravenous administration of 4.0 mCi Tc-99m MAA an 8-view perfusion study was performed using a dual detector gamma scintillation camera. No ventilation images were obtained. FINDINGS: Perfusion images: Segmental perfusion defects are present bilaterally. These include the superior lingular segment and several basilar segments of the left lower lobe, likely involving the posterior, lateral and anterior basilar segments. Small subsegmental perfusion defects are present in the left upper lobe. There is an additional segmental perfusion defect involving the apical segment of the right upper lobe and a subsegmental defect is present in the anterior segment of the right upper lobe. There is probably also a segmental defect in the anterior basilar segment of the right lower lobe. None of these perfusion defects show definite corresponding abnormalities on the contemporaneous chest radiograph. Subtle infiltrate in the lateral aspect of the left lung base may correspond to some perfusion abnormality described above but none of the others show significant radiographic abnormalities. NM/NM pul perfusion IMPRESSION: High probability of pulmonary embolism.
--- NOTE | 2020-08-17 10:47 | PC.NURSE ---
PT TRANSPORTED TO [facility]
[2020-08-17 10:49] LABS: C Reactive Protein 11.56 mg/dL (< or = 0.50); D Dimer 2309 NG/ML
[2020-08-17 11:52] LABS: Adenovirus PCR Not Detected (Not Detect.); Bordetella parapertussis PCR Not Detected (Not Detect.); Bordetella pertussis PCR Not Detected (Not Detect.); Chlamydia pneumoniae PCR Not Detected (Not Detect.); Coronavirus 229E PCR Not Detected (Not Detect.); Coronavirus HKU1 PCR Not Detected (Not Detect.); Coronavirus NL63 PCR Not Detected (Not Detect.); Coronavirus OC43 PCR Not Detected (Not Detect.); Human metapneumovirus PCR Not Detected (Not Detect.); Influenza A PCR Not Detected (Not Detect.); Influenza B PCR Not Detected (Not Detect.); Mycoplasma pneumoniae PCR Not Detected (Not Detect.); Parainfluenza 1 PCR Not Detected (Not Detect.); Parainfluenza 2 PCR Not Detected (Not Detect.); Parainfluenza 3 PCR Not Detected (Not Detect.); Parainfluenza 4 PCR Not Detected (Not Detect.); RSV PCR Not Detected (Not Detect.); Rhino/Enterovirus PCR Not Detected (Not Detect.); SARS-CoV-2 PCR Not Detected (Not Detect.)
[2020-08-17 11:56] LABS: Erythrocyte Sedimentation Rate 63 MM/HR (0-15)
[2020-08-17 12:17] LABS: Partial Thromboplastin Time 31.8 SEC (24.1-38.0)
[2020-08-17 12:55] LABS: Troponin-I High Sensitivity 271.2 ng/L (<3.5-35.0)
[2020-08-17] MEDS: Heparin Sodium,Porcine 5,000 UNIT/ML VIAL 5000 UNIT IVPUSH (13:00)
[2020-08-17] MEDS: Heparin Sodium,Porcine/1/2NS 25,000 UNIT/250 ML IV.SOLN 11.34 UNIT IVCONT (13:03)
[2020-08-17 13:13] LABS: Hematocrit 30.7 % (42-52); Hemoglobin 10.6 g/dl (14.0-18.0); Mean Corpuscular HGB Conc 34.5 g/dl (31.0-36.0); Mean Corpuscular Hemoglobin 33.5 pg (27.0-33.0); Mean Corpuscular Volume 97.2 fL (80-98); Mean Platelet Volume 10.5 fL (9.4-12.4); Platelet Count 361 X10*3/uL (160-400); Red Blood Count 3.16 X10*6/uL (4.60-5.80); Red Cell Distribution Width 11.7 % (11.0-16.0); White Blood Count 12.1 X10*3/uL (4.8-10.8)
[2020-08-17 13:27] LABS: INTERNATIONAL NORM RATIO 1.7 (0.9-1.1); Prothrombin Time 19.7 SEC (10.8-13.0)
[2020-08-17 13:29] LABS: PTT Heparin Drip 67.1 SEC (53-77.9)
--- NOTE | 2020-08-17 14:13 | PM.IMHP ---
History of Present Illness Date of Service: 08/17/20 <Faye Childers NP - Last Filed: 08/17/20 15:01> Chief Complaint: shortness of breath <Faye Childers NP - Last Filed: 08/17/20 15:01> 70-year-old man presenting to the ER with increased shortness of breath. He reports over the last 2 weeks he has had flu-like symptoms including fever, cough, nausea, vomiting and weight loss due to poor appetite. He reports that he has no sick contacts or recent travel. He has had some with shortness of breath at [address] as he was unable make it. He presented to the ER on August 07 and at that time treated for acute viral syndrome. He was tested for COVID-19 August 07 and the . Both negative. Respiratory pathogen panel in the ER also negative. He had a D-dimer which was elevated 2309 therefore V/Q scan was obtained which showed high probability of pulmonary embolus. Chest CT showed emphysema with patchy ground-glass opacities in both upper lobes and patchy consolidation to the left lower lobe. No lymphadenopathy noted. He denied any history of pulmonary embolus the past or cigarette smoking and no recent trauma. He was started on IV heparin drip, given a dose Rocephin and azithromycin. He will be admitted for further management treatment of sepsis related to bilateral pneumonia and pulmonary embolus. <Faye Childers NP - Last Filed: 08/17/20 15:01> Review of Systems Review of Systems: weight loss and decreased appetite respiratory See HPI cardiovascular is adjustment of any PND or edema gastrointestinal see HPI genitourinary denies any dysuria frequency or hematuria musculoskeletal denies any joint pain or swelling neuropsych denies any weakness or seizures all other systems reviewed are negative <Faye Childers NP - Last Filed: 08/17/20 15:01> Constitutional: Constitutional: Denies headache(s) and Denies weakness <Faye Childers NP - Last Filed: 08/17/20 15:01> ENT: Denies headache(s) <Faye Childers NP - Last Filed: 08/17/20 15:01> Musculoskeletal: Musculoskeletal: Denies numbness and Denies tingling <Faye Childers NP - Last Filed: 08/17/20 15:01> Neurologic: Reports system reviewed and no additional complaints, except as documented, Denies Abnormal speech present, Denies headache(s), Denies numbness, Denies tingling and Denies weakness <Faye Childers NP - Last Filed: 08/17/20 15:01> [facility] Medical History: Medical History Hypertension Osteoporosis <Faye Childers NP - Last Filed: 08/17/20 15:01> Family History: Family History (Updated 08/18/20 @ 14:57 by Juju Rawls MD) Brother Coronary artery disease Sister Lung cancer <Faye Childers NP - Last Filed: 08/17/20 15:01> Surgical History: Surgical History History of appendectomy <Faye Childers NP - Last Filed: 08/17/20 15:01> Social History: Social History Household Members: Spouse Housing: House Alcohol intake: current Alcohol intake frequency: 0-2 drinks per day Alcohol type: wine Smoking Status: Never smoker Advance Directives Date on File: 08/17/20 service: No Current occupational status: employed <Faye Childers NP - Last Filed: 08/17/20 15:01> Meds Allergies/Adverse reactions: Allergies Allergy/AdvReac Type Severity Reaction Status Date / Time lisinopril Allergy Unknown cough Verified 08/12/20 11:44 Sulfa (Sulfonamide Allergy Unknown UNK, Verified 08/12/20 11:44 Antibiotics) unknown [SULFA(SULFONAMIDE ANTIBIOTICS)] <Faye Childers NP - Last Filed: 08/17/20 15:01> Home medications: Home Medications Medication Instructions Recorded Confirmed Type colchicine 0.6 mg tablet 0.6 mg PO DAILY PRN 08/12/20 08/17/20 History denosumab 60 mg/mL subcutaneous 60 mg SUBCUT [id number] 08/12/20 08/17/20 History syringe losartan 50 mg tablet 50 mg PO DAILY 08/12/20 08/17/20 History acetaminophen 500 mg tablet 500 mg PO Q6H PRN 08/26/20 History calcium citrate 315 mg 1 tab PO DAILY 08/26/20 History calcium-vitamin D3 6.25 mcg (250 unit) tablet vit cap PO 08/26/20 History C,E,zinc,Ff-fdorg-6-lutein-zeaxanthin 250 mg-2.5 mg-0.5 mg capsule <Faye Childers NP - Last Filed: 08/17/20 15:01> Physical Exam Vital Signs and Narrative: Vital Signs: Last Vital Signs Temp 99.2 F 08/17/20 13:06 Pulse 100 08/17/20 13:06 Resp 16 08/17/20 13:06 BP 163/90 H 08/17/20 13:06 Pulse Ox 100 08/17/20 13:06 Body Mass Index 25.6 <Faye Childers NP - Last Filed: 08/17/20 15:01> Neuro: Speech: No Abnormal speech present <Faye Childers NP - Last Filed: 08/17/20 15:01> Results Labs Labs: Laboratory Tests 08/17/20 08/17/20 08/17/20 09:06 09:06 09:06 WBC 11.4 H RBC 3.61 L Hgb 11.8 L Hct 35.3 L MCV 97.8 MCH 32.7 MCHC 33.4 RDW 11.7 Plt Count 410 H D MPV 10.6 Immature Gran % (Auto) 0.4 Neut % (Auto) 79.4 H Lymph % (Auto) 10.0 L Mellette % (Auto) 9.2 Eos % (Auto) 0.6 Baso % (Auto) 0.4 Lymph # (Auto) 1.1 L Mellette # (Auto) 1.0 Eos # (Auto) 0.1 Baso # (Auto) 0.1 Abs Immat Gran (auto) 0.04 H Absolute Neuts (auto) 9.0 H Absolute Nucleated RBC 0.000 Nucleated RBC % (auto) 0.0 ESR PT 17.7 H INR 1.5 H APTT 31.8 PTT (Heparin Protocol) D-Dimer 2309 Sodium 140 Potassium 4.2 Chloride 106 Carbon Dioxide 21 L Anion Gap 17 BUN 30 H Creatinine 1.89 H Estim Creat Clear Calc 38.0 Estimated GFR 36 Random Glucose 137 H Lactic Acid Calcium 8.3 L Magnesium 2.6 Total Bilirubin 0.6 Direct Bilirubin 0.3 AST 27 ALT 53 H Alkaline Phosphatase 82 Troponin I High Sens C-Reactive Protein 11.56 H B-Natriuretic Peptide Total Protein 7.0 Albumin 3.8 Lipase 22 Respiratory Panel Reynolds Adenovirus (Rapid PCR) B.pert (TEM-PCR) B.parapertussis DNA PCR C. pneumoniae DNA (PCR) Coronavirus OC43 (PCR) Coronavirus HKU1 (PCR) Coronavirus 229E (PCR) Coronavirus NL63 (PCR) Human Metapneumovir PCR Influenza A (RT-PCR) Influenza B (RT-PCR) M. pneumoniae (PCR) Parainfluenza 1 (PCR) Parainfluenza 2 (PCR) Parainfluenza 3 (PCR) Parainfluenza 4 (PCR) RSV (PCR) Entero/Rhino (PCR) SARS-CoV-2 RNA (RT-PCR) 08/17/20 08/17/20 08/17/20 09:06 09:07 09:07 WBC RBC Hgb Hct MCV MCH MCHC RDW Plt Count MPV Immature Gran % (Auto) Neut % (Auto) Lymph % (Auto) Mellette % (Auto) Eos % (Auto) Baso % (Auto) Lymph # (Auto) Mellette # (Auto) Eos # (Auto) Baso # (Auto) Abs Immat Gran (auto) Absolute Neuts (auto) Absolute Nucleated RBC Nucleated RBC % (auto) ESR 63 H PT INR APTT PTT (Heparin Protocol) D-Dimer Sodium Potassium Chloride Carbon Dioxide Anion Gap BUN Creatinine Estim Creat Clear Calc Estimated GFR Random Glucose Lactic Acid 1.7 Calcium Magnesium Total Bilirubin Direct Bilirubin AST ALT Alkaline Phosphatase Troponin I High Sens 422.3 H D C-Reactive Protein B-Natriuretic Peptide 487 H Total Protein Albumin Lipase Respiratory Panel Reynolds Adenovirus (Rapid PCR) B.pert (TEM-PCR) B.parapertussis DNA PCR C. pneumoniae DNA (PCR) Coronavirus OC43 (PCR) Coronavirus HKU1 (PCR) Coronavirus 229E (PCR) Coronavirus NL63 (PCR) Human Metapneumovir PCR Influenza A (RT-PCR) Influenza B (RT-PCR) M. pneumoniae (PCR) Parainfluenza 1 (PCR) Parainfluenza 2 (PCR) Parainfluenza 3 (PCR) Parainfluenza 4 (PCR) RSV (PCR) Entero/Rhino (PCR) SARS-CoV-2 RNA (RT-PCR) 08/17/20 08/17/20 08/17/20 11:46 12:06 13:05 WBC 12.1 H RBC 3.16 L Hgb 10.6 L Hct 30.7 L MCV 97.2 MCH 33.5 H MCHC 34.5 RDW 11.7 Plt Count 361 MPV 10.5 Immature Gran % (Auto) Neut % (Auto) Lymph % (Auto) Mellette % (Auto) Eos % (Auto) Baso % (Auto) Lymph # (Auto) Mellette # (Auto) Eos # (Auto) Baso # (Auto) Abs Immat Gran (auto) Absolute Neuts (auto) Absolute Nucleated RBC 0.000 Nucleated RBC % (auto) 0.0 ESR PT INR APTT PTT (Heparin Protocol) D-Dimer Sodium Potassium Chloride Carbon Dioxide Anion Gap BUN Creatinine Estim Creat Clear Calc Estimated GFR Random Glucose Lactic Acid Calcium Magnesium Total Bilirubin Direct Bilirubin AST ALT Alkaline Phosphatase Troponin I High Sens 271.2 H C-Reactive Protein B-Natriuretic Peptide Total Protein Albumin Lipase Respiratory Panel Reynolds See Note Adenovirus (Rapid PCR) Not Detected B.pert (TEM-PCR) Not Detected B.parapertussis DNA PCR Not Detected C. pneumoniae DNA (PCR) Not Detected Coronavirus OC43 (PCR) Not Detected Coronavirus HKU1 (PCR) Not Detected Coronavirus 229E (PCR) Not Detected Coronavirus NL63 (PCR) Not Detected Human Metapneumovir PCR Not Detected Influenza A (RT-PCR) Not Detected Influenza B (RT-PCR) Not Detected M. pneumoniae (PCR) Not Detected Parainfluenza 1 (PCR) Not Detected Parainfluenza 2 (PCR) Not Detected Parainfluenza 3 (PCR) Not Detected Parainfluenza 4 (PCR) Not Detected RSV (PCR) Not Detected Entero/Rhino (PCR) Not Detected SARS-CoV-2 RNA (RT-PCR) Not Detected 08/17/20 13:05 WBC RBC Hgb Hct MCV MCH MCHC RDW Plt Count MPV Immature Gran % (Auto) Neut % (Auto) Lymph % (Auto) Mellette % (Auto) Eos % (Auto) Baso % (Auto) Lymph # (Auto) Mellette # (Auto) Eos # (Auto) Baso # (Auto) Abs Immat Gran (auto) Absolute Neuts (auto) Absolute Nucleated RBC Nucleated RBC % (auto) ESR PT 19.7 H INR 1.7 H APTT PTT (Heparin Protocol) 67.1 D-Dimer Sodium Potassium Chloride Carbon Dioxide Anion Gap BUN Creatinine Estim Creat Clear Calc Estimated GFR Random Glucose Lactic Acid Calcium Magnesium Total Bilirubin Direct Bilirubin AST ALT Alkaline Phosphatase Troponin I High Sens C-Reactive Protein B-Natriuretic Peptide Total Protein Albumin Lipase Respiratory Panel Reynolds Adenovirus (Rapid PCR) B.pert (TEM-PCR) B.parapertussis DNA PCR C. pneumoniae DNA (PCR) Coronavirus OC43 (PCR) Coronavirus HKU1 (PCR) Coronavirus 229E (PCR) Coronavirus NL63 (PCR) Human Metapneumovir PCR Influenza A (RT-PCR) Influenza B (RT-PCR) M. pneumoniae (PCR) Parainfluenza 1 (PCR) Parainfluenza 2 (PCR) Parainfluenza 3 (PCR) Parainfluenza 4 (PCR) RSV (PCR) Entero/Rhino (PCR) SARS-CoV-2 RNA (RT-PCR) <Faye Childers NP - Last Filed: 08/17/20 15:01> Assessment and Plan (1) Pulmonary embolism: Status: Acute <Faye Childers NP - Last Filed: 08/17/20 15:01> (2) Pneumonia: Status: Acute <Faye Childers NP - Last Filed: 08/17/20 15:01> (3) CKD (chronic kidney disease): (4) Elevated troponin: Status: Resolved <Faye Childers NP - Last Filed: 08/17/20 15:01> 70 year old man admitted with sepsis related to CAP and bilateral pulmonary embolus. There was concern for other etiology including malignancy versus infectious. Sepsis. Leukocytosis, tachycardia. normal lactic acid. Follow blood cultures. Community-acquired pneumonia. Bilateral. Respiratory pathogen panel including COVID 19 testing negative. Patient has had 3- COVID test so far. Will continue antibiotics and have Pulmonary see the patient. Bilateral pulmonary embolus. Spontaneous, no trauma and no history. Continue IV heparin, hematology to follow. Echocardiogram. Elevated troponin. No complaints of chest pain. Likely related to pulmonary embolus. Nonspecific changes on EKG. Cardiology consultation. CKD. Stable renal function. Hypertension. Stable blood pressure. Continue home medications. DVT prophylaxis with IV heparin. Case discussed Dr. Rice Full code <Faye Childers NP - Last Filed: 08/17/20 15:01>
[2020-08-17 14:22] LABS: Appearance Urine CLEAR; Color Urine YELLOW; Glucose Urine UA NEG (NEG); Leukocyte Esterase Urine NEG (NEG); Nitrite Urine NEG (NEG); PH 5.5 (5.0-8.0); Urine Blood TRACE (NEG); Urine Ketones 5 MG/DL (NEG); Urine Protein TRACE MG/DL (NEG-TRACE)
--- NOTE | 2020-08-17 14:25 | PC.NURSE ---
waiting for room assignment no change in vs
[2020-08-17 14:30] LABS: Mucus Urine 1+ /LPF; RBC Urine 0-2 /HPF (0); WBC Urine 0-2 /HPF (0-4)
[2020-08-17] MEDS: Azithromycin 500 MG in 0.9 % Sodium Chloride 250 ML 125 MG IV (14:46)
--- NOTE | 2020-08-17 15:38 | PM.EVENT ---
Event Note Event Note: Patient seen and examined independently and was present during link portion of E/M service. Agree with midlevel's history, physical, assessment, and plan. 70M presented with sob, fevers, chills, weight loss sob due to PE ? underlying condition, infecitous vs malignant vs AI, follow up pulm and heme iv herparin, echo
[2020-08-17 15:59] LABS: Lactate Dehydrogenase 341 U/L (118-273)
--- NOTE | 2020-08-17 17:03 | PC.NURSE ---
[facility]
[2020-08-17 19:04] LABS: PTT Heparin Drip 57.1 SEC (53-77.9)
--- NOTE | 2020-08-18 | US_ITS ---
EXAMINATION: US VENOUS ULTRASOUND WITH DOPPLER LOWER EXTREMITY, BILATERAL CLINICAL INFORMATION: Shortness of breath. High probability VQ scan COMPARISON: None TECHNIQUE: Ultrasound of the deep veins is performed from the hip to the calf with compression sonography and color and pulse Doppler assessment. Spectral analysis with color-flow imaging is performed. FINDINGS: RIGHT: There is normal venous compression and respiratory variation and augmented flow. The visualized common femoral vein, superficial femoral vein, profunda femoral vein, popliteal vein, and the trifurcation region shows no evidence of deep venous thrombosis. There is no significant popliteal fossa cyst. LEFT: There is normal venous compression and respiratory variation and augmented flow. The visualized common femoral vein, superficial femoral vein, profunda femoral vein, popliteal vein, and the trifurcation region shows no evidence of deep venous thrombosis. There is no significant popliteal fossa cyst. US/US venous duplex LE BI IMPRESSION: No DVT demonstrated in the bilateral lower extremities.
[2020-08-18] MEDS: 0.9 % Sodium Chloride Flush 3 ML SYRINGE IVFLUSH ×2 (00:27→19:15)
[2020-08-18 01:05] LABS: PTT Heparin Drip 49.9 SEC (53-77.9)
[2020-08-18] MEDS: Heparin Sodium,Porcine 5,000 UNIT/ML VIAL 3240 UNIT IVPUSH (02:00)
[2020-08-18 03:06] VITALS: BP 152/92; PULSE 94; RESP 18; TEMP 36.8; O2SAT 92
[2020-08-18 06:21] LABS: MANUAL DIFF FLAG NO
[2020-08-18 06:36] LABS: Basophils Absolute Auto 0.1 X10*3/uL (0.0-0.2); Basophils Percent Auto 0.6 % (0-2); Eosinophils Absolute Auto 0.1 X10*3/uL (0.0-0.4); Hematocrit 30.9 % (42-52); Hemoglobin 10.4 g/dl (14.0-18.0); Imm Gran Abs Auto 0.05 X10*3/uL (0.00-0.03); Imm Gran Pct Auto 0.5 % (0.0-0.4); Lymphocytes Absolute Auto 1.6 X10*3/uL (1.2-4.9); Mean Corpuscular HGB Conc 33.7 g/dl (31.0-36.0); Mean Corpuscular Hemoglobin 32.8 pg (27.0-33.0); Mean Corpuscular Volume 97.5 fL (80-98); Mean Platelet Volume 10.7 fL (9.4-12.4); Monocytes Percent Auto 9.7 % (2-11); Neutrophils Absolute Auto 7.1 X10*3/uL (2.0-8.3); Neutrophils Percent Auto 72.2 % (45-73); Platelet Count 382 X10*3/uL (160-400); Red Blood Count 3.17 X10*6/uL (4.60-5.80); Red Cell Distribution Width 11.7 % (11.0-16.0); White Blood Count 9.9 X10*3/uL (4.8-10.8)
[2020-08-18 06:42] LABS: INTERNATIONAL NORM RATIO 1.5 (0.9-1.1); Prothrombin Time 18.1 SEC (10.8-13.0)
[2020-08-18 06:57] LABS: Anion Gap 15 (12-20); Blood Urea Nitrogen 25 mg/dL (9-16); Calcium 7.4 mg/dL (8.4-10.2); Carbon Dioxide 19 mmol/L (22-29); Chloride 109 mmol/L (96-108); Creatinine Clr Calc Pharmacy 46.1; Estimated Glomerular Filt Rate 44; Glucose Random 111 mg/dL (60-115); Sodium 139 mmol/L (135-145)
[2020-08-18 07:24] VITALS: BP 152/81; PULSE 92; RESP 18; TEMP 36.6; O2SAT 94
[2020-08-18] MEDS: Losartan Potassium 50 MG TABLET PO (08:05)
--- NOTE | 2020-08-18 08:58 | P.CDIC_ITS ---
CDI Concurrent Query Service Date: 08/18/20 Documentation Clarification: Please clarify if you are treating a proba ble/suspected/likely or confirmed: Specifics: Chronic kidney disease Stage 1-5 Please specify if known Provider Response: CKD Stage 3 PLEASE DO NOT DELETE/MODIFY EXISTING CONTENT Additional information is needed in order to code to the highest accuracy and appropriate Severity of Illness (SOI). Please clarify the information noted b elow in your progress notes and discharge summary. Risk Factors/Clinical Indicators/Treatments History of CKD Stable renal function. Cr. 1.56 Gfr 44 CDS: Anna Owen CCS, CDIS Contact Number: [phone] Please Review the information above and exercise your independent professional judgment in responding to the query. If you concur, pleas document in the PROGRESS NOTES and DISCHARGE SUMMARY. If you do not agree with the query, please document in the query above. THIS QUERY IS PART OF THE PERMANENT MEDICAL RECORD
[2020-08-18] MEDS: Heparin Sodium,Porcine/1/2NS 25,000 UNIT/250 ML IV.SOLN 12.96 UNIT IVCONT (09:00)
--- NOTE | 2020-08-18 09:48 | MHC.CM.PN ---
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 States he does have a HCP, copy requested. Discussed discharge plan, home no services. Family will provide transport. CM will continue to follow patient for discharge needs.
--- NOTE | 2020-08-18 10:09 | PM.EVENT ---
Event Note Event Note: Seen for pulm . consultation this AM I have revieweed the case and examined this patient . complete note dictated . A: Pulmonary Embolism , bilateral . Mild Resp. distress . Non specific Pulmonary densities , in Rt U L. Lingular Lobe , and Lt. Lower lobe , do not seem to be due to bacterial pneumonia . P : The sequence of symptoms, and pulm . densities , plus pulm . embolism , suggest active COVID -Disease , but COVID-19 tests negative x 2 Check Covid IGG antibody at this time . Venous doppler US of lower extermities , For treatment , cont IV Heparin, at this time . O2 if and as needed . Case discussed with patient ,, and Dr. Velázquez .
--- NOTE | 2020-08-18 10:34 | PM.CNCAR ---
History of Present Illness History of Present Illness Date of Consult: August 18, 2020 Requesting physician: Moses Rice Chief complaint: sob,cough,fever Narrative: this is a cardiology consultation regarding elevated troponins. He has had flu-like symptoms including fever cough nausea and poor appetite. For the last few days he has also been increasingly short of breath. He came to the ER few days ago and at that time was treated for acute viral syndrome. COVID tested twice and was negative. Respiratory pathogen panel in the ER was also negative. D-dimer has been elevated and hence VQ scan performed that shows high pretest probability of pulmonary embolism. From the cardiac standpoint no known coronary disease myocardial infarction any other cardiac issues. His troponins came back elevated and hence we have been asked to see him. Patient denies anginal-type symptoms. Apart from the shortness of breath, he states that he feels okay. Review of Systems Review of Systems: Cardiac- positive for shortness of breath but negative for angina, leg swelling, dizzy spells or syncopal episodes. Remainder of the 10 system review negative [facility] Past Medical History Medical History Hypertension Osteoporosis Family History Family History Brother Coronary artery disease Surgical History Surgical History History of appendectomy Social History Social History Household Members: Spouse Housing: House Do you presently have visiting nurse or other home services: No Alcohol intake: current Alcohol intake frequency: 0-2 drinks per day Alcohol type: wine Smoking Status: Never smoker Use of substances other than those prescribed or required for medical reasons: No Currently Displaying Signs/Symptoms of Drug Intoxication Withdrawal: No Have you been hit, kicked, punched, or otherwise hurt by someone within the past year? If so, by whom?: No Do you feel safe in your current relationship?: No Is there a partner from a previous relationship who is making you feel unsafe now?: No Are you made to feel afraid or neglected: No Advance Directives: Yes Advance Directives Information Provided: Yes Advance Directives on File: No Advance Directives Date on File: 08/17/20 Do you have thoughts of harming others: None Do you have a plan to hurt others: No Plan Recently lost weight without trying: No service: No Current occupational status: employed Meds Allergies Allergy/AdvReac Type Severity Reaction Status Date / Time lisinopril Allergy Unknown cough Verified 08/12/20 11:44 Sulfa (Sulfonamide Allergy Unknown UNK, Verified 08/12/20 11:44 Antibiotics) unknown [SULFA(SULFONAMIDE ANTIBIOTICS)] Home Medications Medication Instructions Recorded Confirmed Type colchicine 0.6 mg tablet 0.6 mg PO DAILY PRN 08/12/20 08/17/20 History denosumab 60 mg/mL subcutaneous 60 mg SUBCUT [id number] 08/12/20 08/17/20 History syringe losartan 50 mg tablet 50 mg PO DAILY 08/12/20 08/17/20 History Physical Exam Vital Signs: Vital Signs: Vital Signs Temp Pulse Resp BP Pulse Ox 08/18/20 07:24 97.9 F 92 18 152/81 H 94 08/18/20 03:06 98.3 F 94 18 152/92 H 92 08/17/20 23:13 97.4 F 99 19 146/90 H 94 08/17/20 19:57 98.3 F 105 H 20 143/89 H 96 08/17/20 18:23 98.2 F 97 18 152/96 H 94 08/17/20 17:04 99.4 F 96 18 163/111 H 95 08/17/20 14:52 99.4 F 99 18 144/86 H 08/17/20 13:06 99.2 F 100 16 163/90 H 100 08/17/20 11:56 99.9 F 102 H 18 153/84 H 94 Body Mass Index 25.6 Comfortable, no distress No pallor, icterus or cyanosis HEENT -unremarkable JVD- normal Cardiac- normal heart sounds, no murmurs, gallops or rubs, normal PMI Respiratory-normal breath sounds bilaterally, no crackles, no wheeze Abdomen- soft, nontender Neuro- alert and oriented Lower extremities- no significant edema, warm well perfused Results Labs and Meds Result diagrams: 08/18/20 05:41 08/18/20 05:41 Lab results: Laboratory Tests 08/17/20 08/17/2008/17/20 09:06 09:07 11:46 BUN Creatinine Troponin I High Sens C-Reactive Protein 11.56 H B-Natriuretic Peptide 487 H Coronavirus NL63 (PCR) Not Detected 08/17/20 08/18/20 12:06 05:41 BUN 25 H Creatinine 1.56 H Troponin I High Sens 271.2 H C-Reactive Protein B-Natriuretic Peptide Coronavirus NL63 (PCR) Assessment and Plan (1) NSTEMI (non-ST elevated myocardial infarction): Status: Acute (2) Pulmonary embolism: Status: Acute (3) Shortness of breath: Status: Acute Troponins are elevated at 271 and 422. Cardiac BNP 487. EKG with sinus rhythm and anterior T inversions as well as inferior T inversions. This is different from prior study from 07 of August. Lung VQ scan shows high probability for pulmonary embolism. CT chest shows emphysema. Overall, his symptoms are probably from pulmonary embolism itself. T inversions as well as troponins are also more likely from right ventricular strain. Less likely acute plaque rupture. We can get an echocardiogram for further evaluation. Possible recent COVID but not clear as the tests are negative. We will follow.
[2020-08-18 11:33] LABS: SARS COV2 IgG Negative (Negative)
[2020-08-18 11:37] VITALS: BP 140/87; PULSE 93; RESP 18; TEMP 36.6; O2SAT 97
--- NOTE | 2020-08-18 12:01 | HO.PM.IMPN ---
Subjective Subjective Date of Service: 08/18/20 Interval History: sob Cardiovascular Cardiovascular: Reports no additional cardiovascular complaints Gastrointestinal Gastrointestinal: Reports no additional gastrointestinal complaints Physical Exam Vital Signs: Vital Signs: Vital Signs Temp Pulse Resp BP Pulse Ox 08/18/20 11:37 97.9 F 93 18 140/87 H 97 08/18/20 07:24 97.9 F 92 18 152/81 H 94 08/18/20 03:06 98.3 F 94 18 152/92 H 92 08/17/20 23:13 97.4 F 99 19 146/90 H 94 08/17/20 19:57 98.3 F 105 H 20 143/89 H 96 08/17/20 18:23 98.2 F 97 18 152/96 H 94 08/17/20 17:04 99.4 F 96 18 163/111 H 95 08/17/20 14:52 99.4 F 99 18 144/86 H 08/17/20 13:06 99.2 F 100 16 163/90 H 100 Body Mass Index 25.6 General: AO X 3, no acute distress Resp: CTA bilateral CVS: S1,S2,RRR GI: soft, non tender, non distended Neuro: motor grossly intact Psych: appropriate affect Objective Data Current Medications Generic Name Dose Route Start Last Admin Trade Name Freq PRN Reason Stop Dose Admin Acetaminophen 650 mg 08/17/20 18:12 Acetaminophen 325 Mg Tablet PO Q6H PRN Pain, Mild (Pain Scale 1-3) Albuterol Sulfate 2 puff 08/17/20 18:12 Albuterol Sulfate 90 Mcg 18 Gm Inhaler INHALE Q4H PRN shortness of breath or wheezing Benzonatate 100 mg 08/17/20 18:12 Benzonatate 100 Mg Capsule PO BID PRN cough Heparin Sodium (Porcine) 5,000 unit 08/17/20 12:04 08/17/20 13:00 Heparin Sodium,Porcine 5,000 Unit/Ml Vial IVPUSH 5,000 unit BOLUS PRN Administration 80 unit/kg - Heparin Protocol Heparin Sodium (Porcine) 3,240 unit 08/18/20 01:39 08/18/20 02:00 Heparin Sodium,Porcine 5,000 Unit/Ml Vial 40 unit/kg (3240 unit) 3,240 unit IVPUSH Administration BOLUS PRN 40 unit/kg - Heparin Protocol Heparin Sodium/Sodium Chloride 25,000 unit in 250 mls @ 0 mls/hr 08/17/20 12:15 08/18/20 09:00 IVCONT 16 units/kg/hr .Q0M ROSANNA 12.96 mls/hr Administration Protocol Per Protocol Ceftriaxone Sodium 1 gm/ 50 mls @ 100 mls/hr 08/18/20 10:00 Sodium Chloride IV Q24H ROSANNA Azithromycin 500 mg/ Sodium 250 mls @ 125 mls/hr 08/18/20 14:00 Chloride IV Q24H ROSANNA Losartan Potassium 50 mg 08/18/20 09:00 08/18/20 08:05 Losartan Potassium 50 Mg Tablet PO 50 mg DAILY [facility] Administration Protocol Ondansetron HCl 4 mg 08/17/20 18:12 Ondansetron Hcl 4 Mg/2 Ml Vial IVPUSH Q8H PRN Nausea and Vomiting Pharmacy Consult 1 each 08/17/20 13:14 Consult Rx Perform Med Rec MISCELLANE ONCE PRN Consult order Sodium Chloride 3 ml 08/17/20 18:12 08/18/20 08:05 0.9 % Sodium Chloride Flush 3 Ml Syringe IVFLUSH Not Given QSHIFT [facility] Labs CBC & Chem 7: 08/18/20 05:41 08/18/20 05:41 Microbiology Microbiology Results: Microbiology 08/17/20 09:20 Blood - Venous Blood Culture - Preliminary No growth after 24 hours. 08/17/20 09:14 Blood - Venous Blood Culture - Preliminary No growth after 24 hours. Assessment and Plan (1) Pulmonary embolism: Status: Acute (2) Pneumonia: Status: Acute (3) CKD (chronic kidney disease): Status: Acute (4) Elevated troponin: Status: Acute Assessment and Plan: 70M presented with sob, fever SIRS POA due to possible pnuemonia bacterial vs viral, continue empiric antibiotics, covid negative X 3, IgG negative, resp panel negative PE complicated by troponemia unclear cause heparin follow up doppler, echo CKD III stable HTN losartan
[2020-08-18] MEDS: cefTRIAXone sodium 1 GM in 0.9 % Sodium Chloride 50 ML IV (12:49)
[2020-08-18] MEDS: Benzonatate 100 MG CAPSULE PO (13:35)
[2020-08-18] MEDS: Azithromycin 500 MG in 0.9 % Sodium Chloride 250 ML 125 MG IV (13:37)
--- NOTE | 2020-08-18 14:42 | PM.HEMONCCN ---
Subjective - Subjective Chief complaint: Shortness of breath Consult date: 08/18/20 Requesting Physician: Faye Childers NP Primary Care Provider: Molly Foster MD HPI - Consult Narrative Reason for consult: Bilateral pulmonary emboli Narrative: Kenn Melissa is a 70 year old male who was admitted on 08/17/2020 with complaints of shortness of breath. His symptoms date back to about a month ago when he knee developed stomach flu like symptoms. He had significant diarrhea, loss of appetite and weight loss of 10 lbs. The few days later he started to developed symptoms of cough and shortness of breath. He went 2 times to the ER, both times he was tested for COVID-19 and they were negative. He was treated with Zithromax for a week and it did not seem to help his symptoms. He was not bed-bound but he was feeling weak and tired for nearly 1 month. Workup in the emergency department yesterday revealed D-dimer was elevated 2309. Therefore V/Q scan was obtained which showed high probability of pulmonary embolus. Chest CT showed emphysema with patchy ground-glass opacities in both upper lobes and patchy consolidation to the left lower lobe. No lymphadenopathy noted. He denies any history of pulmonary embolus in past or cigarette smoking and no recent trauma or surgery. There is no family history of thromboembolism although his father of postoperative complications at the age of 69. He is up-to-date for colon cancer screening. Review of Systems - Constitutional Reports as per HPI, Reports fatigue, Reports malaise, Reports poor appetite, Reports weight loss - Cardiovascular Denies chest pain with activity, Denies irregular heart rhythm - Respiratory Reports chest congestion, Reports cough, Reports pain with cough, Reports dyspnea - Gastrointestinal Reports no additional gastrointestinal complaints - Neurologic Reports no additional neurologic complaints, Denies abnormal speech, Denies headache(s), Denies numbness, Denies tingling, Denies weakness Oncology Screenings - ECOG Performance Status ECOG Performance Status: [facility] Medical History: Medical History (Last Reviewed 08/18/20 @ 10:37 by Bharat Bautista MD) Hypertension Osteoporosis Family History: Family History (Last Updated 08/18/20 @ 14:57 by Juju Rawls MD) Brother Coronary artery disease Sister Lung cancer Surgical History: Surgical History (Last Reviewed 08/18/20 @ 10:37 by Bharat Bautista MD) History of appendectomy Smoking status: Never smoker Home Medications and Allergies Current Medications: Current Medications Generic Name Dose Route Start Last Admin Trade Name Freq PRN Reason Stop Dose Admin Acetaminophen 650 mg 08/17/20 18:12 Acetaminophen 325 Mg Tablet PO Q6H PRN Pain, Mild (Pain Scale 1-3) Albuterol Sulfate 2 puff 08/17/20 18:12 Albuterol Sulfate 90 Mcg 18 Gm Inhaler INHALE Q4H PRN shortness of breath or wheezing Benzonatate 100 mg 08/17/20 18:12 08/18/20 13:35 Benzonatate 100 Mg Capsule PO 100 mg BID PRN Administration cough Heparin Sodium (Porcine) 5,000 unit 08/17/20 12:04 08/17/20 13:00 Heparin Sodium,Porcine 5,000 Unit/Ml Vial IVPUSH 5,000 unit BOLUS PRN Administration 80 unit/kg - Heparin Protocol Heparin Sodium (Porcine) 3,240 unit 08/18/20 01:39 08/18/20 02:00 Heparin Sodium,Porcine 5,000 Unit/Ml Vial 40 unit/kg (3240 unit) 3,240 unit IVPUSH Administration BOLUS PRN 40 unit/kg - Heparin Protocol Heparin Sodium/Sodium Chloride 25,000 unit in 250 mls @ 0 mls/hr 08/17/20 12:15 08/18/20 09:00 IVCONT 16 units/kg/hr .Q0M ROSANNA 12.96 mls/hr Administration Protocol Per Protocol Ceftriaxone Sodium 1 gm/ 50 mls @ 100 mls/hr 08/18/20 10:00 08/18/20 13:36 Sodium Chloride IV Infused Q24H ROSANNA Infusion Azithromycin 500 mg/ Sodium 250 mls @ 125 mls/hr 08/18/20 14:00 08/18/20 13:37 Chloride IV 125 mls/hr Q24H ROSANNA Administration Losartan Potassium 50 mg 08/18/20 09:00 08/18/20 08:05 Losartan Potassium 50 Mg Tablet PO 50 mg DAILY ROSANNA Administration Protocol Ondansetron HCl 4 mg 08/17/20 18:12 Ondansetron Hcl 4 Mg/2 Ml Vial IVPUSH Q8H PRN Nausea and Vomiting Pharmacy Consult 1 each 08/17/20 13:14 Consult Rx Perform Med Rec MISCELLANE ONCE PRN Consult order Sodium Chloride 3 ml 10/27/20 18:12 08/18/20 08:05 0.9 % Sodium Chloride Flush 3 Ml Syringe IVFLUSH Not Given QSHIFT [facility] Home Medications Medication Instructions Recorded Confirmed Type colchicine 0.6 mg tablet 0.6 mg PO DAILY PRN 08/12/20 08/17/20 History denosumab 60 mg/mL subcutaneous 60 mg SUBCUT [id number] 08/12/20 08/17/20 History syringe losartan 50 mg tablet 50 mg PO DAILY 08/12/20 08/17/20 History Allergies Allergy/AdvReac Type Severity Reaction Status Date / Time lisinopril Allergy Unknown cough Verified 08/12/20 11:44 Sulfa (Sulfonamide Allergy Unknown UNK, Verified 08/12/20 11:44 Antibiotics) unknown [SULFA(SULFONAMIDE ANTIBIOTICS)] Physical Exam Vital signs: Vital Signs Temp 97.9 F 08/18/20 11:37 Pulse 93 08/18/20 11:37 Resp 18 08/18/20 11:37 BP 140/87 H 08/18/20 11:37 Pulse Ox 97 08/18/20 11:37 Intake & Output 08/17/20 08/18/20 08/18/20 18:59 06:59 18:59 Intake Total 1297.917 / 1927.042 629.125 / 1927.042 500.504 / 500.504 Output Total 700 / 700 Balance 1297.917 / 1227.042 -70.875 / 1227.042 500.504 / 500.504 Urine Output (Average ml/kg/hr) 0.72 0.72 Intake: Intake, Oral Amount 480 / 480 360 / 360 Intake, IV Amount 1297.917 / 1447.042 149.125 / 1447.042 140.504 / 140.504 0.9 % Sodium Chloride 1,000 ml 1000 / 1000 @ 999 mls/hr IV .Q1H1M ONE Rx#: [id number] Azithromycin 500 mg In 0.9 % 247.917 / 250.000 2.083 / 250.000 Sodium Chloride 250 ml @ 125 mls/hr IV ONCE ONE Rx#: [id number] cefTRIAXone sodium 1 gm In 0.9 50 / 50 50 / 50 % Sodium Chloride 50 ml @ 100 mls/hr IV Q24H [facility] Rx#: [id number] Heparin Sodium,Porcine/1/2NS 25 147.042 / 147.042 90.504 / 90.504 ,000 unit In 250 ml @ Per Protocol IVCONT .Q0M [facility] Rx#: [id number] Output: Output, Urine Amount 700 / 700 Other: Breakfast % Eaten 100% Lunch % Eaten 100% Number of Unmeasured Voids 2 Urine Bathroom Bathroom Urine Color Yellow Weight 81 kg Weight 81 kg - Constitutional Present: no acute distress - Routine HEENT Exam Head: Present: normal inspection Eye: Present: EOMI - Routine Neck Exam Absent: lymphadenopathy - Routine Respiratory Exam Absent: accessory muscle use, rhonchi, wheezes - Routine Cardiovascular Exam Cardiovascular: Present: RRR, S1, S2 - Routine Abdominal Exam Present: normal bowel sounds, soft - Routine Extremities Exam Absent: calf tenderness, pedal edema Hem/Onc Consult Result - Labs CBC & Chem 7: 08/18/20 05:41 08/18/20 05:41 Labs: Short CBC 08/18/20 08/18/20 Range/Units 05:41 05:41 WBC Cancelled 9.9 Hgb Cancelled 10.4 L Hct Cancelled 30.9 L Plt Count Cancelled 382 BMP 08/18/20 05:41 Sodium 139 Potassium 4.0 Chloride 109 H Carbon Dioxide 19 L BUN 25 H Creatinine 1.56 H Calcium 7.4 L Assessment and Plan (1) Pulmonary embolism Status: Acute Qualifiers: Pulmonary embolism type: other 1. This is a pleasant 70-year-old male admitted with bilateral pneumonia and pulmonary embolism. He has had symptoms for nearly a month, initially GI symptoms followed by respiratory symptoms. He was tested several times for COVID-19, both antigen and antibody tests are negative. He is not a smoker, there is no past history or family history of thromboembolism. He is on anticoagulation with heparin and receiving antibiotics. His symptoms are better. Etiology of PE could be recent pneumonia and ongoing symptoms for nearly a month. We can defer thrombophilia workup at this time. Echocardiogram and lower extremity Dopplers are pending. Imaging with CT abdomen and pelvis does not show lymphadenopathy or evidence of malignancy. I discussed anticoagulation for at least 3 months. He can be transitioned to Lovenox /warfarin or 1 of the new oral anticoagulants if allowed by his insurance carrier. I thank you for this consultation. I will be happy to see the patient upon discharge.
[2020-08-18 16:00] VITALS: BP 151/82; PULSE 91; RESP 18; TEMP 36.9; O2SAT 95
[2020-08-18 19:35] VITALS: BP 152/85; PULSE 98; RESP 18; TEMP 36.8; O2SAT 96
[2020-08-18 23:54] VITALS: BP 158/82; PULSE 91; RESP 18; TEMP 36.8; O2SAT 93
[2020-08-19] MEDS: 0.9 % Sodium Chloride Flush 3 ML SYRINGE IVFLUSH (00:05)
[2020-08-19 04:00] VITALS: BP 152/85; PULSE 93; RESP 18; TEMP 36.6; O2SAT 92
[2020-08-19] MEDS: Heparin Sodium,Porcine/1/2NS 25,000 UNIT/250 ML IV.SOLN 12.96 UNIT IVCONT (05:26)
[2020-08-19 06:18] LABS: MANUAL DIFF FLAG NO
[2020-08-19 06:31] LABS: Basophils Absolute Auto 0.1 X10*3/uL (0.0-0.2); Basophils Percent Auto 0.6 % (0-2); Eosinophils Absolute Auto 0.1 X10*3/uL (0.0-0.4); Eosinophils Percent Auto 1.2 % (0-4); Hematocrit 30.7 % (42-52); Hemoglobin 10.4 g/dl (14.0-18.0); Imm Gran Abs Auto 0.05 X10*3/uL (0.00-0.03); Imm Gran Pct Auto 0.5 % (0.0-0.4); Lymphocytes Absolute Auto 1.5 X10*3/uL (1.2-4.9); Lymphocytes Percent Auto 15.3 % (20-40); Mean Corpuscular HGB Conc 33.9 g/dl (31.0-36.0); Mean Corpuscular Hemoglobin 33.1 pg (27.0-33.0); Mean Corpuscular Volume 97.8 fL (80-98); Mean Platelet Volume 10.4 fL (9.4-12.4); Monocytes Absolute Auto 0.9 X10*3/uL (0.1-1.2); Monocytes Percent Auto 8.6 % (2-11); Neutrophils Absolute Auto 7.3 X10*3/uL (2.0-8.3); Neutrophils Percent Auto 73.8 % (45-73); Platelet Count 419 X10*3/uL (160-400); Red Blood Count 3.14 X10*6/uL (4.60-5.80); Red Cell Distribution Width 11.7 % (11.0-16.0); White Blood Count 9.9 X10*3/uL (4.8-10.8)
[2020-08-19 06:51] LABS: Anion Gap 15 (12-20); Blood Urea Nitrogen 19 mg/dL (9-16); Calcium 7.7 mg/dL (8.4-10.2); Carbon Dioxide 20 mmol/L (22-29); Chloride 110 mmol/L (96-108); Creatinine Clr Calc Pharmacy 48.3; Estimated Glomerular Filt Rate 47; Glucose Fasting 108 mg/dL (60-99); Potassium 4.4 mmol/l (3.3-5.1); Sodium 141 mmol/L (135-145)
[2020-08-19 06:54] LABS: PTT Heparin Drip 53.8 SEC (53-77.9)
[2020-08-19 07:56] VITALS: BP 160/90; PULSE 88; RESP 17; TEMP 36.8; O2SAT 95
--- NOTE | 2020-08-19 08:05 | P.CDIC_ITS ---
[facility] Concurrent Query Service Date: 08/19/20 Documentation Clarification: Please clarify if you are treating a proba ble/suspected/likely or confirmed: Sepsis due to pneumonia/pulmonary embolus POA Sirs due to pneumonia/pulmonary embolus POA Please specify if known Provider Response: Other Other Diagnosis: Pneumonia present on admission Pulmonary emboli--present on admission PLEASE DO NOT DELETE/MODIFY EXISTING CONTENT Additional information is needed in order to code to the highest accuracy and appropriate Severity of Illness (SOI). Please clarify the information noted below in your progress notes and discharge summary. Risk Factors/Clinical Indicators/Treatments H&P: 08/17 - admit for further management treatment of Sepsis related to bilateral pneumonia and pulmonary embolus. Progress note 08/18 - SIRS POA due to possible pneumonia bacterial vs. viral. Empiric antibiotics. Temp 101.7 chills, body aches, sob, HR 102 w RR 18 WBC 15.2 CDS: Anna Owen CCS, CDIS Contact Number: [phone] Please Review the information above and exercise your independent professional judgment in responding to the query. If you concur, pleas document in the PROGRESS NOTES and DISCHARGE SUMMARY. If you do not agree with the query, please document in the query above. THIS QUERY IS PART OF THE PERMANENT MEDICAL RECORD
[2020-08-19 08:39] VITALS: BP 160/90; PULSE 88
[2020-08-19] MEDS: Losartan Potassium 50 MG TABLET PO (08:39)
[2020-08-19] MEDS: Benzonatate 100 MG CAPSULE PO (08:41)
--- NOTE | 2020-08-19 10:01 | PM.PNPUL ---
Subjective Subjective Interval history: patient seen for pulmonary follow-up this morning. he feels better, denies any chest pain or respiratory distress. has remained afebrile. COVID PCR x3 has been negative. COVID antibody test is also negative. most likely etiology of his pulmonary embolism is the recent to pneumonia and house confinement. in any case he is responding to the treatment well. Objective Data Labs CBC & Chem 7: 08/19/20 05:27 08/19/20 05:27 Labs: Laboratory Results - last 24 hr 08/18/20 08/18/20 08/19/20 10: 13:58 05:27 WBC RBC Hgb Hct MCV MCH MCHC RDW Plt Count MPV Immature Gran % (Auto) Neut % (Auto) Lymph % (Auto) [place] % (Auto) Eos % (Auto) Baso % (Auto) Lymph # (Auto) [place] # (Auto) Eos # (Auto) Baso # (Auto) Abs Immat Gran (auto) Absolute Neuts (auto) Absolute Nucleated RBC Nucleated RBC % (auto) PTT (Heparin Protocol) 56.0 D 53.8 Sodium Potassium Chloride Carbon Dioxide Anion Gap BUN Creatinine Estim Creat Clear Calc Estimated GFR Fasting Glucose Calcium SARS-CoV-2 IgG Ab Negative 08/19/20 08/19/20 05:27 05:27 WBC 9.9 RBC 3.14 L Hgb 10.4 L Hct 30.7 L MCV 97.8 MCH 33.1 H MCHC 33.9 RDW 11.7 Plt Count 419 H MPV 10.4 Immature Gran % (Auto) 0.5 H Neut % (Auto) 73.8 H Lymph % (Auto) 15.3 L [place] % (Auto) 8.6 Eos % (Auto) 1.2 Baso % (Auto) 0.6 Lymph # (Auto) 1.5 [place] # (Auto) 0.9 Eos # (Auto) 0.1 Baso # (Auto) 0.1 Abs Immat Gran (auto) 0.05 H Absolute Neuts (auto) 7.3 Absolute Nucleated RBC 0.000 Nucleated RBC % (auto) 0.0 PTT (Heparin Protocol) Sodium 141 Potassium 4.4 Chloride 110 H Carbon Dioxide 20 L Anion Gap 15 BUN 19 H Creatinine 1.49 H Estim Creat Clear Calc 48.3 Estimated GFR 47 Fasting Glucose 108 H Calcium 7.7 L SARS-CoV-2 IgG Ab Microbiology Microbiology Results: Microbiology 08/17/20 09:20 Blood - Venous Blood Culture - Preliminary No growth after 24 hours. 08/17/20 09:14 Blood - Venous Blood Culture - Preliminary No growth after 24 hours. Review of Systems Constitutional: Denies fatigue, Denies headache(s) and Denies weakness Eyes: Denies blurry vision, Denies irritation, Denies itchy eyes and Denies loss of vision Denies dysphagia and Denies headache(s) Cardiovascular: Denies chest pain, Denies rapid heart rate, Denies irregular heart rhythm, Denies dyspnea on exertion and Denies slow heart rate Respiratory: Reports as per HPI and Denies dyspnea on exertion Gastrointestinal: Denies bloating, Denies change in bowel habits, Denies change in stool character, Denies dysphagia, Denies heartburn, Denies nausea and Denies vomiting Genitourinary: Denies urinary frequency and Denies urinary incontinence Musculoskeletal: Denies numbness and Denies tingling Reports system reviewed and no additional complaints, except as documented, Denies Abnormal speech present, Denies headache(s), Denies loss of vision, Denies memory loss, Denies numbness, Denies tingling and Denies weakness Psychiatric: Denies anxiety, Denies depression, Denies difficulty concentrating, Denies irritability, Denies memory loss and Denies mood swings Endocrine: Reports no additional endocrine complaints and Denies fatigue Hematologic/Lymphatic: Reports no additional hematologic/lymphatic complaints Allergic/Immunologic: Reports no additional allergic/immunologic complaints and Denies itchy eyes Physical Exam Vital Signs: Vital Signs: Vital Signs Temp Pulse Resp BP Pulse Ox 08/19/20 08:39 88 160/90 H 08/19/20 07:56 98.2 F 88 17 160/90 H 95 08/19/20 04:00 97.8 F 93 18 152/85 H 92 08/18/20 23:54 98.2 F 91 18 158/82 H 93 08/18/20 19:35 98.2 F 98 18 152/85 H 96 08/18/20 16:00 98.4 F 91 18 151/82 H 95 08/18/20 11:37 97.9 F 93 18 140/87 H 97 Body Mass Index 25.6 Const: General: healthy appearing, comfortable, no acute distress, alert and awake Orientation/consciousness: patient oriented x3 HENMT: Head: Yes normal to inspection General nose exam: No nasal polyps present and No nasal discharge present Face and sinus: Yes sinuses nontender Mouth: oropharynx normal Throat: Yes posterior oropharynx normal Eyes: General: appearance normal, both eyes and all related structures Neck: Neck: Yes normal visual inspection, Yes no lymphadenopathy, Yes trachea midline and Yes no JVD Thyroid: Thyroid normal Chest: Other: symmetrical, no deformity of the chest to, no local tenderness. Resp: Other: good breath sounds and equal on both sides, no crepitations or rhonchi are heard Cardio: Palpation: normal PMI Rate: regular rate Rhythm: regular rhythm Heart sounds: no gallops and no murmurs Peripheral pulses: Peripheral pulses 2+ throughout GI: Palpation (GI): Soft to palpation, nontender, No hepatosplenomegaly present and no masses Auscultation: normal bowel sounds Back/Spine/Pelvis: Thoracic/Lumbar Spine: thoracic and lumbar spine normal to inspection Skin: General skin exam: no rashes or lesions noted Neuro: General: patient oriented x3 and no focal motor deficits Cranial nerves: Yes CN's II-XII intact bilaterally Speech: No Abnormal speech present Extrem: General: Yes normal to inspection, Yes no clubbing, cyanosis or edema, Yes no calf tenderness and No venous stasis dermatitis Psych: Appearance: grossly normal Speech and movement: Normal speech and movement present Assessment and Plan Assessment and plan (1) Pulmonary embolism: Problem details: Patient responding well to the treatment with IV heparin. The underlying cause of his pulmonary embolism remains on certain, but most likely due to recent respiratory infection, pneumonia and confinement. Patient is anxious to go home, he may be switched to a direct anticoagulant, depending up on the avendano and insurance coverage issue. If he opts to use Coumadin for anticoagulation then he would need overlap therapy for at least 2 days. He can have workup for thrombophilia at a later date, as outpatient. From pulmonary point of view he is doing well at this time and will be glad to see him in the office for follow-up, after his discharge. Status: Acute (2) Pneumonia: Problem details: Has been treated with Antibiotics , No active Pneumonia at this time . May need a repeat CT scan of chest , to see if the pulmonary densities , in [place] and [place] have resolved . Status: Acute Time Spent With Patient Time: Total time spent is greater than 50% in coordination of care (as documented) at patient's floor/unit and/or counseling patient: Time with patient: 15 - 24 minutes
[2020-08-19] MEDS: cefTRIAXone sodium 1 GM in 0.9 % Sodium Chloride 50 ML IV (11:05)
[2020-08-19] MEDS: Apixaban 5 MG TABLET 10 MG PO (11:05)
--- NOTE | 2020-08-19 11:11 | PM.DS ---
DS: Providers Provider Date of admission: 08/17/20 15:37 Primary care physician: Molly Foster MD Consults: 08/17/20 18:12 Consult to Cardiology Routine Consulting Provider: Bharat Bautista Reason for consultation: elevated troponin. PE Has provider been notified: No Consult to Hematology / Oncology Routine Consulting Provider: Juju Rawls Reason for consultation: bilatral pe Has provider been notified: No Consult to Pulmonology Routine Consulting Provider: Kunal Childers Reason for consultation: bilateral consolidations with pe, neg covid Has provider been notified: No DS: Diagnosis Discharge Diagnosis (1) Pulmonary embolism: Status: Acute (2) Pneumonia: Status: Acute DS: Summary Hospital Course Hospital Course: HPI by Faye Childers on admission on 08/17/20 70-year-old man presenting to the ER with increased shortness of breath. He reports over the last 2 weeks he has had flu-like symptoms including fever, cough, nausea, vomiting and weight loss due to poor appetite. He reports that he has no sick contacts or recent travel. He has had some with shortness of breath at 1 point he stairs as he was unable make it. He presented to the ER on August 07 and at that time treated for acute viral syndrome. He was tested for COVID-19 August 07 and the . Both negative. Respiratory pathogen panel in the ER also negative. He had a D-dimer which was elevated 2309 therefore V/Q scan was obtained which showed high probability of pulmonary embolus. Chest CT showed emphysema with patchy ground-glass opacities in both upper lobes and patchy consolidation to the left lower lobe. No lymphadenopathy noted. He denied any history of pulmonary embolus the past or cigarette smoking and no recent trauma. He was started on IV heparin drip, given a dose Rocephin and azithromycin. He will be admitted for further management treatment of sepsis related to bilateral pneumonia and pulmonary embolus. Hospital course: 1. Pneumonia--patient had symptoms that werre very typical of covid 19 infection yet tested negative x 3 with PCR and antibody level has been negative as well. Pneumonia has been treated with Ceftriaxone and Azithromycin and will transitioned to oral Ceftin and Oral Azithro at discharge. 2. Pulmonary Emboli present on admission--likely from pneumonia. He has been on Heparin and will transitioned to oral Eliquis with 10 bid x 7 days, then 5 bid thereafter. He may need a follow up CT of the chest which maybe arranged by the pulmonary service. Was seen by Dr. Rawls ([facility]) and recommend at least 3 months of anticoagulation and defer thrombophilia work up at this time. 3. Elevated troponin--Seen by cardiology and thought to be likely from right ventricular strain from PE Time Spent with Patient Time attestation: Total time spent providing and/or coordinating discharge services: Physical Exam Vital Signs: Vital Signs: Vital Signs Temp Pulse Resp BP Pulse Ox 08/19/20 08:39 88 160/90 H 08/19/20 07:56 98.2 F 88 17 160/90 H 95 08/19/20 04:00 97.8 F 93 18 152/85 H 92 08/18/20 23:54 98.2 F 91 18 158/82 H 93 08/18/20 19:35 98.2 F 98 18 152/85 H 96 08/18/20 16:00 98.4 F 91 18 151/82 H 95 08/18/20 11:37 97.9 F 93 18 140/87 H 97 General: AO X 3, no acute distress Resp: CTA bilateral CVS: S1,S2,RRR GI: soft, non tender, non distended Neuro: motor grossly intact Psych: appropriate affect DS: Data Data Completed and Pending Labs on day of discharge: Blood cultures negative Laboratory Tests 08/19/20 05:27 RBC 3.14 L Hgb 10.4 L Hct 30.7 L Plt Count 419 H Laboratory Tests 08/19/20 05:27 Sodium 141 Potassium 4.4 BUN 19 H Creatinine 1.49 H VQ scan--bilateral PE CT chest:MPRESSION: Emphysema. Patchy groundglass opacity in both upper lobes and patchy consolidation subpleural-based left lower lobe may represent small consolidation with underlying airway disease. No abnormal chest, abdomen pelvis lymphadenopathy. No pleural effusion. No acute process seen in the abdomen except for scattered sigmoid reticulosis without diverticulitis. Evidence of previous appendectomy. Bilateral perinephric stranding with no hydronephrosis seen. There is a punctate nonobstructive radiopaque calculi upper pole left kidney and along the calyces of mid and lower pole right kidney. VTE studies: negative for DVTs in both legs Discharge Plan Discharge Anticipated Discharge Date/Time: 08/19/20 11:22 Patient Disposition: Home, Self-Care Referrals: Molly Foster MD [Primary Care Provider] - Discharge Medications: New Eliquis 5 mg Tablet 5 - 10 mg PO BID Qty: 60 RF: 0 cefuroxime axetil 500 mg tablet 500 mg PO BID 7 Days Qty: 10 RF: 0 azithromycin 500 mg tablet 500 mg PO DAILY 3 Days Qty: 3 RF: 0 Continued albuterol sulfate 90 mcg/actuation HFA aerosol inhaler 2 puff inhalation Q4-6H PRN (Reason: shortness of breath or wheezing) Qty: 6.7 RF: 0 benzonatate [Tessalon Perles] 100 mg capsule 100 mg PO BID PRN (Reason: cough) Qty: 14 RF: 0 losartan 50 mg tablet 50 mg PO DAILY RF: 0 denosumab 60 mg/mL syringe 60 mg subcut [id number] RF: 0 colchicine 0.6 mg tablet 0.6 mg PO DAILY PRN (Reason: GOUT) RF: 0 ondansetron 4 mg tablet,disintegrating 4 mg PO Q6H PRN (Reason: nausea and vomiting) Qty: 60 RF: 0 Discharge Orders: Discharge Order (Routine); Ordered 08/19/20 Ordered By: Geovani Webb Diet: advance to your usual diet Activity on Discharge: As tolerated Patient Instructions: Pneumonia (DC) Visit Report Forms: Patient Portal Discharge page Care Plan Goals: Complete treatment of pneumonia and clots in the lungs Health Concerns: complications of pneumonia and blood clots in the lung Plan of Treatment: -Take Azithromycin and Ceftin to treat pneumonia. -Take Eliquis as recommend to treat lung clots -Follow up with your primary care Doctor in a week, call for appointment -Follow up with Dr. Toro in the pulmonary Clinic within 1 to 2 weeks, call for appointment [phone]
[2020-08-19 11:43] VITALS: BP 160/90; PULSE 96; RESP 18; TEMP 37; O2SAT 98
[2020-08-19 11:53] LABS: PTT Heparin Drip 53.3 SEC (53-77.9)
--- NOTE | 2020-08-19 12:11 | MHC.CM.PN ---
Patient is being discharged home today no services. will provide transportation. CM gave patient 30 day free trial for Eliquis. Patient states Eliquis will cost him 30$ per month and is able to afford this. Instructed to follow up with PCP 1-2 wks. Patient verbalizes understanding and agrees with plan. IMM updated.
--- NOTE | 2020-08-19 14:00 | CA_ITS ---
Transthoracic Echocardiogram Patient (Last, First, Middle): Kenn Melissa P Gender: Male Date of : 1950 Age: 70 Procedure Date: 08/19/2020 Procedure Type: Transthoracic Echocardiogram [place] [facility] [place]: 177.8 cm Weight: 83.92 kg BSA: 2.02 m2 Heart Rate: bpm BP: 160 / 90 mmHg Fish Checker: FERNANDO Vogel MD: Moses Rice MD Cleaner Housekeeping: Louis Stevenson MD Symptoms: pe Study Quality: Fair ECG Rhythm: Sinus Conclusions: - 1. Normal LV systolic function with impaired relaxation filling pattern 2. Trace aortic regurgitation 3. Borderline RV systolic pressure 4. No pericardial effusion Findings Left Ventricle Normal left ventricular size, thickness, and systolic function. The visually estimated ejection fraction is between 65-70%. Spectral Doppler is indicative of an impaired relaxation filling pattern. E/E prime ratio is between 8 and 15 consistent with indeterminate filling pressures. Right Ventricle Normal right ventricular cavity size. There is normal right ventricular systolic function. Atria The left atrium is normal in size. There is lipomatous hypertrophy of the interatrial septum. Interatrial shunt cannot be excluded. The right atrium is normal in size. Aortic Valve The aortic valve structure and function is likely normal. There is no aortic valve stenosis. There is trace (trivial) aortic valve regurgitation. Mitral Valve Normal mitral valve structure and function. There is trace mitral valve regurgitation. There is no mitral valve stenosis. Pulmonic Valve The pulmonic valve is likely normal. There is trace to mild pulmonic valve regurgitation. Tricuspid Valve Normal tricuspid valve structure. There is mild tricuspid valve regurgitation. The right ventricular systolic pressure is normal. The right ventricular systolic pressure is 39 mmHg. There is no evidence of pulmonary hypertension. Great Vessels All visible segments of the aorta are normal in size. The pulmonary artery was not well visualized. Venous The inferior vena cava is normal in size and collapses greater than 50% with inspiration. Pericardium/Pleural There is no evidence of pericardial effusion. Prior Study Comparison No prior study available for comparison. Measurements 2D Linear Measurements RVIDd: 3.57 RVIDd Index: 1.77 IVSd: 0.88 0.6-0.9/0.6-1.0 cm LVIDd: 5.09 3.9-5.3/4.2-5.9 cm LVIDd Index: 2.52 2.4-3.2/2.2-3.1 cm/m2 LVIDs: 3.18 2.0-3.6 cm LVPWd: 1.13 0.7-1.1 cm Ao Root: 3.20 2.1-3.5 cm LA Diam: 4.10 2.7-3.8/3.0-4.0 cm LAIDs Index: 2.03 1.5-2.3 cm/m2 LV Mass: 235.24 67-162/88-224 g LV Mass Index: 116.45 43-95/49-115 g/m2 LVOT Diam: 2.00 3.0+(-)1.3 cm 2D Systolic Function EF 4C: 63.70 >55% EF 2C: 67.40 >55% EF BiP: 67.10 >55% Mitral Valve MV Pk E: 0.73 MV PK A: 0.87 MV Decel Time: 141.00 E/A: 0.80 E'Lateral: 8.80 E'Medial: 6.29 E/E' Med: 11.60 E/E' Lat: 8.30 Aortic Valve AoV Pk Kan: 1.80 AoV Mn Kan: 1.29 AoV VTI: 0.28 AoV Pk Grad: 13.00 Aov Mn Grad: 8.00 LESIA Cont.VTI: 1.99 LVOT LVOT Pk Kan: 1.23 LVOT Mn Kan: 0.78 LVOT VTI: 0.18 LVOT Pk Grad: 6.00 LVOT Mn Grad: 3.00 LVOT Diam: 2.00 LVOT Area: 3.14 Diastolic Function MV Pk E: 0.73 MV Pk A: 0.87 E/A: 0.80 E'Medial: 6.29 E/E' Med: 11.60 E' Laterial: 8.80 E/E' Lat: 8.30 Tricuspid Valve TR Pk Kan: 3.01 TR Pk Grad: 36.00 RA Press: 3.00 RVSP: 39.00 Great Vessels Aorta Ao Root-2D: 3.20 2.0-3.7 cm Ao Asc: 3.10 2.1-3.4 cm Ao Arch: 2.90 Updated in Other Vendor System with Status of Final Louis Stevenson MD electronically signed on 08/19/2020 4:58:20 PM with status of Final
--- NOTE | 2020-08-20 15:22 | CONS_ITS ---
DATE OF SERVICE: 08/18/2020 HISTORY OF PRESENT ILLNESS: This 70-year-old very pleasant gentleman is admitted since yesterday with increased shortness of breath on minimal effort with some cough. No fever or chills. His workup included CT scan of the chest without contrast as well as VQ nuclear scan of the lungs. Lab test showed elevated D-dimer at 23:09. VQ scan showed multisegmental perfusion defects. CT scan of the chest shows ground-glass type of rounded density in the right upper lobe, lingular lobe and pleural based density in the left lower lobe. This patient's recent history is as follows. He was seen with flu-like symptoms including low-grade fever, cough, nausea, vomiting, loss of appetite and some weight loss for about 2 weeks. Initially checked in the emergency room on August 07 and treated for an acute viral syndrome. COVID test was, PCR test negative at that time. Again checked on August 12 and his COVID-19 test was again negative. Respiratory panel in the emergency room negative for influenza and other respiratory infections. The patient has been treated with Zithromax and some cough medications. He presented to the emergency room on August 17 with shortness of breath, which worsened over the last few days. No cough or wheezing. No fever. PAST MEDICAL HISTORY: He has [id number] chronic kidney disease, which he states after he was started on lisinopril for treatment of hypertension. Anyway, the kidney disease has been mainly because of his elevated BUN and creatinine and he is not receiving any acute treatment. The patient has had diagnosis of osteoporosis. No definite reason, this was detected about 7-10 years ago and he has been on an injection twice a year. A medication injection denosumab 60 mg. Patient also is on losartan 50 mg daily and Colchicine 0.6 mg daily. He has never been on any respiratory medications. He has no history of any bronchial asthma or chronic lung disease. SOCIAL HISTORY: Socially, the patient has history of drinking 1 or 2 drinks of wine a few times during the week. He has never smoked and he has never worked in any factories or industries exposing him to any chemicals, dust or fumes. More recently, he has had no injuries and no confinement except for the last few weeks due to flu-like symptoms. He has no history of exposure to any sick person or traveling outside the [facility]. REVIEW OF SYSTEMS: Essentially unremarkable except for his dyspnea, which is on minimal effort and also he has had lack of appetite. PHYSICAL EXAMINATION: GENERAL: A 70-year-old very pleasant gentleman is conversing very well, sitting up in the bed. He does not require oxygen. He is visibly short of breath during conversation, but not in acute distress. NOSE AND THROAT: Normal. NECK: No JVD. Trachea midline. No lymphadenopathy. CHEST: Symmetrical. Percussion note is resonant. Breath sounds are slightly distant, but no wheezes or rhonchi are heard. CARDIAC: Sounds are normal. No murmur or gallop. ABDOMEN: Flat, soft and nontender next. EXTREMITIES: No edema or varicosities. No tenderness. Peripheral pulses normal. DIAGNOSTIC DATA: The CT scan and V/Q scan of the chest are reviewed and he has the following findings: Multisegmental perfusion defects consistent with pulmonary embolism. A ground-glass opacity about size of a golf ball in the right upper lobe posterior segment and in on the lingular lobe. Also a density pleural-based in the left lower lobe. LABORATORY STUDIES: White cell count on August 07 was 15.2, but it has gradually come down and today on August 18 is 9.9, hemoglobin is 13.5. Today is 10.4. COVID test x2 negative. IMPRESSION: His constellation of symptoms and radiologic findings along with unprovoked pulmonary embolism, is typical of COVID infection. However, it is surprising that his COVID PCR test twice are negative. It is very possible that he had active COVID, asymptomatic, for the first 1 week or 10 days before the onset of the symptoms. Possible by that time, his PCR test became negative, but he still has after effect of active COVID infection presenting in pulmonary embolism, respiratory insufficiency and still has some anorexia. If that is negative then he has unprovoked pulmonary embolism and we have to look for some occult etiology for that. I do not think he has any active bacterial infection. RECOMMENDATION: Continue with IV heparin for active anticoagulation for the first 3-5 days and then will be transitioning it to oral anticoagulation. Oxygen supplementation as needed. Order IgG antibody for COVID. Also get venous Doppler ultrasound of both lower extremities. Case discussed in detail with the patient and also with Dr. Moses Rice. Thank you very much for asking me to see this patient. Mazin Toro MD MSB/FRANKLINL / [phone]
== END 2020-08-19 13:30 | disposition home or self-care (01) | DRG 139 ==
LOC: HO.ED 14:45 → HO.IMC 16:17
PROVIDERS: Internal Medicine; Nurse Practitioner Family; Admitting Provider Nurse Practitioner Acute Care; Emergency Provider Emergency Medicine; PCP Internal Medicine; Visit Provider Internal Medicine
DX: J18.9 Pneumonia, unspecified organism (principal); I26.99 Other pulmonary embolism without acute cor pulmonale; N18.30 Chronic kidney disease, stage 3 unspecified; I12.9 Hypertensive chronic kidney disease with stage 1 through stage 4 chronic kidney disease, or unspecified chronic kidney disease; Z20.828 Contact with and (suspected) exposure to other viral communicable diseases; Z88.2 Allergy status to sulfonamides; Z79.899 Other long term (current) drug therapy
CPT/HCPCS: 36415; 71046; 71250; 74176; 78580; 80048; 80076; 81001; 83605; 83615; 83690; 83735; 83880; 84484; 85025; 85027; 85379; 85610; 85652; 85730; 86140; 86769; 87040; 87633; 93005; 93306; 93970; 96361; 96365; 96367; 96375; 99285; A9540; J0456; J0696

== ENCOUNTER 2020-08-27 08:05 | Outpatient (REF) | payer BC, SELFPAY ==
[2020-08-27 13:18] LABS: MANUAL DIFF FLAG NO
[2020-08-27 13:27] LABS: Basophils Absolute Auto 0.1 X10*3/uL (0.0-0.2); Basophils Percent Auto 1.2 % (0-2); Eosinophils Absolute Auto 0.3 X10*3/uL (0.0-0.4); Hemoglobin 12.3 g/dl (14.0-18.0); Imm Gran Abs Auto 0.01 X10*3/uL (0.00-0.03); Imm Gran Pct Auto 0.1 % (0.0-0.4); Lymphocytes Absolute Auto 1.8 X10*3/uL (1.2-4.9); Lymphocytes Percent Auto 25.1 % (20-40); Mean Corpuscular HGB Conc 32.4 g/dl (31.0-36.0); Mean Corpuscular Hemoglobin 32.4 pg (27.0-33.0); Mean Platelet Volume 10.5 fL (9.4-12.4); Monocytes Absolute Auto 0.6 X10*3/uL (0.1-1.2); Monocytes Percent Auto 8.3 % (2-11); Neutrophils Absolute Auto 4.4 X10*3/uL (2.0-8.3); Neutrophils Percent Auto 61.3 % (45-73); Platelet Count 487 X10*3/uL (160-400); Red Cell Distribution Width 11.9 % (11.0-16.0); White Blood Count 7.2 X10*3/uL (4.8-10.8)
[2020-08-27 14:18] LABS: Alanine Aminotransferase 71 U/L (0-40); Alkaline Phosphatase 81 U/L (39-117); Anion Gap 15 (12-20); Aspartate Amino Transferase 27 U/L (5-37); Bilirubin Total 0.4 mg/dL (0.0-1.0); Blood Urea Nitrogen 23 mg/dL (9-16); Calcium 9.1 mg/dL (8.4-10.2); Carbon Dioxide 26 mmol/L (22-29); Chloride 108 mmol/L (96-108); Estimated Glomerular Filt Rate 42; Glucose Fasting 110 mg/dL (60-99); Potassium 4.9 mmol/l (3.3-5.1); Sodium 144 mmol/L (135-145); Total Protein 7.4 g/dL (6.5-8.0)
[2020-08-27 14:27] LABS: Vitamin D 25-OH Total 50.1 ng/mL (>30)
[2020-08-28 08:05] LABS: SARS COV2 IgG Negative (Negative)
== END 2020-08-27 08:06 | disposition home or self-care (01) ==
LOC: HO.HMGCLDS 08:05
PROVIDERS: PCP Internal Medicine; Visit Provider Internal Medicine
DX: I26.99 Other pulmonary embolism without acute cor pulmonale (principal); J18.9 Pneumonia, unspecified organism
CPT/HCPCS: 36415; 80053; 82306; 85025; 86769

== ENCOUNTER → 2020-09-14 11:13 | Outpatient (BNVA) | payer BC, SELFPAY | PROVIDERS: PCP Internal Medicine; Visit Provider Internal Medicine | DX: Z76.89 Persons encountering health services in other specified circumstances (principal) ==

== ENCOUNTER 2020-10-06 13:07 | Outpatient (REF) | payer BC, SELFPAY ==
--- NOTE | 2020-10-06 13:09 | CT_ITS ---
EXAMINATION: CT CHEST WITHOUT CONTRAST CLINICAL INFORMATION: Follow-up nonspecific abnormal finding of lung miner COMPARISON: Previous chest CT July 2020 TECHNIQUE: Multidetector volumetric CT imaging of the chest was done. Axial MIP volume rendering provided. Sagittal and coronal reformatted images were obtained. This CT examination was performed using dose optimization techniques as appropriate, variously including the following: *Automated exposure control *Adjustment of mA and/or kV according to patient size (this includes techniques or standardized protocols for targeted exams where dose is matched to indication/reason for exam; i.e. extremities or head) *Use of iterative reconstruction technique DLP: 178 mGy-cm FINDINGS: LUNGS: There is interval decrease in the area of groundglass attenuation in the peripheral right upper lobe measuring 3 cm on 08/10/2020. There are residual increased linear markings suggestive of scarring axial image 18 series 4. There is interval decrease in the peripheral or subpleural superior segment right lower lobe nodule from July 2020. There is minimal peripheral or subpleural scarring in this region axial image 28 series 4. The previously identified area of groundglass attenuation seen in the central left upper lobe adjacent to the mediastinum on 2019 exam has completely resolved. There is interval decrease in the areas of peripheral groundglass attenuation and denser consolidation seen in the left lower lobe. There are residual peripheral or subpleural density in the left lower lobe, largest measuring 1.2 x 3.5 cm axial image 49 series. The peripheral or subpleural left lower lobe nodule adjacent to the diaphragmatic pleural surface appears decreased in size measuring 5 mm axial image 53 series 4 compared to approximately 1.1 cm on prior exam. There is a small calcified 3 mm right lower lobe nodule axial image 52 series 4 that is stable. No new pulmonary nodule is seen. MEDIASTINUM: The mediastinum is normal. PLEURA: There is no pleural effusion. No pleural mass or thickening. AXILLA: No lymphadenopathy. UPPER ABDOMEN: There is a small stone in the upper pole of the left kidney. There are small calcifications in the body and tail the pancreas. It is uncertain whether these represent calcifications in the parenchyma of the pancreas are related to calcifications in the splenic artery. The spleen is lobulated in shape. There is a 1 cm low-attenuation lesion in the peripheral spleen axial image 63 series 3 that is stable. OSSEOUS STRUCTURES: There are mild degenerative changes of the spine. CT/CT chest wo con IMPRESSION: Interval decrease in peripheral areas of parenchymal consolidation and groundglass opacities from July 2020.
== END 2020-10-06 13:08 | disposition home or self-care (01) ==
LOC: HO.CT 13:07
PROVIDERS: PCP Internal Medicine; Visit Provider Internal Medicine
DX: Z00.01 Encounter for general adult medical examination with abnormal findings (principal); R91.8 Other nonspecific abnormal finding of lung field; N40.0 Benign prostatic hyperplasia without lower urinary tract symptoms; I12.9 Hypertensive chronic kidney disease with stage 1 through stage 4 chronic kidney disease, or unspecified chronic kidney disease; N18.9 Chronic kidney disease, unspecified; Z12.5 Encounter for screening for malignant neoplasm of prostate
CPT/HCPCS: 71250

== ENCOUNTER → 2020-10-27 10:48 | Outpatient (BNVA) | payer BC, SELFPAY | PROVIDERS: PCP Internal Medicine; Visit Provider Internal Medicine | DX: Z76.89 Persons encountering health services in other specified circumstances (principal) ==

== ENCOUNTER 2020-11-16 08:42 | Outpatient (REF) | payer BC, SELFPAY ==
[2020-11-16 10:37] LABS: Alanine Aminotransferase 27 U/L (0-40); Anion Gap 13 (12-20); Aspartate Amino Transferase 21 U/L (5-37); Blood Urea Nitrogen 26 mg/dL (9-16); Carbon Dioxide 26 mmol/L (22-29); Chloride 110 mmol/L (96-108); Cholesterol 264 mg/dL; Estimated Glomerular Filt Rate 43; Glucose Fasting 111 mg/dL (60-99); HDL Cholesterol 52 mg/dL; LDL Cholesterol Calculated 172 mg/dl; Potassium 4.4 mmol/l (3.3-5.1); Sodium 145 mmol/L (135-145); Triglycerides 204 mg/dL
[2020-11-16 10:46] LABS: PSA,Total (Free>4and<10) 0.93 ng/mL (0.00-4.00)
[2020-11-16 10:47] LABS: Vitamin D 25-OH Total 39.9 ng/mL (>30)
[2020-11-29 11:28] LABS: N-Telopeptide 16 (see note); NTXCreaRU 103 mg/dL (20-320)
== END 2020-11-16 08:43 | disposition home or self-care (01) ==
LOC: HO.10HDL 08:42
PROVIDERS: Absent Provider Internal Medicine Endocrinology, Diabetes & Metabolism; Visit Provider Internal Medicine
DX: Z00.01 Encounter for general adult medical examination with abnormal findings (principal); I12.9 Hypertensive chronic kidney disease with stage 1 through stage 4 chronic kidney disease, or unspecified chronic kidney disease; N18.9 Chronic kidney disease, unspecified; N40.0 Benign prostatic hyperplasia without lower urinary tract symptoms; M81.0 Age-related osteoporosis without current pathological fracture
CPT/HCPCS: 36415; 80048; 80061; 82306; 82523; 84153; 84450; 84460

== ENCOUNTER → 2021-01-03 08:52 | Outpatient (BNVA) | payer BC, SELFPAY | PROVIDERS: PCP Internal Medicine; Referring Provider Internal Medicine; Visit Provider Internal Medicine Endocrinology, Diabetes & Metabolism | DX: M81.0 Age-related osteoporosis without current pathological fracture (principal); E04.2 Nontoxic multinodular goiter | CPT/HCPCS: 96402 ==

== ENCOUNTER 2021-01-26 08:55 | Outpatient (REF) | payer BC, SELFPAY ==
[2021-01-26 17:54] LABS: Albumin Level 4.4 g/dL (3.5-5.0); Calcium 9.6 mg/dL (8.4-10.2)
== END 2021-01-26 08:56 | disposition home or self-care (01) ==
LOC: HO.HMGCLDS 08:55
PROVIDERS: PCP Internal Medicine; Visit Provider Internal Medicine Endocrinology, Diabetes & Metabolism
DX: M81.0 Age-related osteoporosis without current pathological fracture (principal)
CPT/HCPCS: 36415; 82040; 82310

== ENCOUNTER → 2021-06-28 08:02 | Outpatient (BNVA) | payer BC, SELFPAY | PROVIDERS: PCP Internal Medicine; Visit Provider Internal Medicine ==

== ENCOUNTER 2021-06-28 09:48 | Outpatient (REF) | payer BC, SELFPAY ==
[2021-06-28 10:40] LABS: Albumin Level 4.4 g/dL (3.5-5.0); Calcium 8.8 mg/dL (8.4-10.2)
[2021-06-28 11:09] LABS: Free T4 (Free Thyroxine) 0.98 ng/dL (0.71-1.85); Vitamin D 25-OH Total 42.8 ng/mL (>30)
[2021-07-05 19:56] LABS: N-Telopeptide 12 (see note); NTXCreaRU 146 mg/dL (20-320)
== END 2021-06-28 09:49 | disposition home or self-care (01) ==
LOC: HO.10HDL 09:48
PROVIDERS: Visit Provider Internal Medicine Endocrinology, Diabetes & Metabolism
DX: M81.0 Age-related osteoporosis without current pathological fracture (principal)
CPT/HCPCS: 36415; 82040; 82306; 82310; 82523; 84439; 84443

== ENCOUNTER → 2021-07-14 07:56 | Outpatient (BNVA) | payer BC, SELFPAY | PROVIDERS: PCP Internal Medicine; Visit Provider Nurse Practitioner Gerontology | DX: M81.0 Age-related osteoporosis without current pathological fracture (principal) | CPT/HCPCS: 96372 ==

== ENCOUNTER 2021-07-27 09:06 | Outpatient (REF) | payer BC, SELFPAY ==
--- NOTE | ~2021-07-27 | CT_ITS ---
EXAMINATION: CT CHEST WITHOUT CONTRAST CLINICAL INFORMATION: Other nonspecific abnormal finding lung field. Follow-up ground-glass opacities. COMPARISON: Previous chest CT scans July and September 2020 TECHNIQUE: Multidetector volumetric CT imaging of the chest was done. Axial MIP volume rendering provided. Sagittal and coronal reformatted images were obtained. This CT examination was performed using dose optimization techniques as appropriate, variously including the following: *Automated exposure control *Adjustment of mA and/or kV according to patient size (this includes techniques or standardized protocols for targeted exams where dose is matched to indication/reason for exam; i.e. extremities or head) *Use of iterative reconstruction technique DLP: 182 mGy-cm FINDINGS: LUNGS: There is residual linear scarring or subsegmental atelectasis in the lateral right upper lobe and posterior basal left lower lobe. This appears decreased in size and density compared to previous exams. There are scattered areas of increased peripheral interstitial markings, greatest in the inferior segment of the lingula. There is a small calcified 3 mm right lower lobe nodule axial image 491 series 7 that is stable. No new pulmonary nodule is seen. MEDIASTINUM: There are small calcified superior mediastinal lymph nodes. There are no enlarged lymph nodes. The heart does not appear enlarged. There is no pericardial effusion. The thoracic aorta is normal in caliber. PLEURA: There is no pleural effusion. No pleural mass or thickening. AXILLA: No lymphadenopathy. UPPER ABDOMEN: The spleen is slightly lobulated in shape. There is a small 1 cm low-attenuation lesion in the spleen that is stable and probably represents a cyst. There may be small calcifications in the pancreas. There is a small calcification in the upper pole of the left kidney questionable for a stone. OSSEOUS STRUCTURES: There are mild degenerative changes of the spine. CT/CT chest wo con IMPRESSION: Residual linear scarring in the peripheral or subpleural right upper lobe and left lower lobe. This appears decreased in size and density compared to prior exams.
== END 2021-07-27 09:07 | disposition home or self-care (01) ==
LOC: HO.CT 09:06
PROVIDERS: Visit Provider Internal Medicine
DX: R91.8 Other nonspecific abnormal finding of lung field (principal)
CPT/HCPCS: 71250

== ENCOUNTER 2021-07-27 09:38 | Outpatient (REF) | payer BC, SELFPAY ==
[2021-07-27 10:34] LABS: Estimated Glomerular Filt Rate 37
[2021-07-29 12:50] LABS: Calcium (PTHI) 9.6 mg/dL (8.6-10.3); PTHI 148 pg/mL (14-64)
== END 2021-07-27 09:39 | disposition home or self-care (01) ==
LOC: HO.10HDL 09:38
PROVIDERS: Visit Provider Nurse Practitioner Gerontology
DX: M81.0 Age-related osteoporosis without current pathological fracture (principal)
CPT/HCPCS: 36415; 82565; 83970

== ENCOUNTER 2021-08-05 09:00 | Outpatient (RCR) | payer BC, SELFPAY ==
--- NOTE | 2021-07-05 09:52 | MHC.PT.EP ---
[facility] [place] Office [place] Office [place] Office [address] [phone] F: [phone] F: [phone] F: [phone] F: [phone] Physical Therapy Plan of Care Date of Evaluation: Date of Surgery: n/a Diagnosis: Somatic Dysfunction of L SI Joint Assessment: Patient is a 71 year old R handed male who presents with s/s consistent with Somatic dysfunction of the SI joint. He works with daily job demands including mostly sitting. He has been mostly sedentary since the start of [employer], no longer swimming or walking as much. Patient past medical history includes PE. Current impairments include pain, ROM, strength, safety, independence, activity tolerance and functional mobility. Functional limitations include decreased ability to walk, stand, transfer, negotiate stairs, and perform weight bearing activities.. Patient is motivated with good rehab potential. Skilled PT will address impairments and functional limitations in order to achieve goals. Frequency and Duration: The patient will be seen 2x/week for 5 weeks Short Term Goals: I with HEP - 2 weeks Stable innom - 3 weeks 90/90 lacking 20 or less - 3 weeks Able to walk/stand > 15 minutes - 3 weeks Pillowcase Turner Goals: Able to stand and walk > 30 minutes - 5 weeks LES 62/80 - 5 weeks Treatment Plan: Modalities to reduce pain, spasms and effusion. Manual therapy to restore motion and function. Therapeutic exercise to improve strength and flexibility. Neuromuscular re-education for posture and balance. Therapeutic activities to return to functional activities of daily living. Electronically signed by: Henry Scott, PT Please sign and return to therapist. Thank you for your referral.
--- NOTE | 2021-11-23 08:38 | MHC.PT.DC ---
[facility] [place] Office [place] Office [place] Office [address] Charmaine Hood [address] [phone] F: [phone] F: [phone] F: [phone] F: [phone] Physical Therapy Discharge Report Diagnosis: Somatic Dysfunction of L SI Joint Date of Surgery: n/a Date of Evaluation: 07/05/21 Date of Discharge: 08/25/21 Treatments to Date: 9 Cancellations to Date: 0 No Shows to Date: 0 Discharge Status: Independent with HEP Discharge Summary: We reviewed all of his HEP and ensured he had all needed bands. He is I with HEP. His innom is stable x3 weeks. 90/90 still lacking 22 on L and 24 on R. Educated in importance of continuing to stretching his HS. He is able to walk/stand > 1 hour at this time per his report. He scored a 63/80 on his LEFS and is appropriate to d/c to HEP at this time. Electronically signed by: Henry Scott PT Please sign and return to therapist. Thank you for your referral.
== END 2021-09-09 07:00 | disposition home or self-care (01) ==
LOC: HO.PTCHIC 09:00
PROVIDERS: PCP Internal Medicine; Visit Provider Hospitalist
DX: M99.04 Segmental and somatic dysfunction of sacral region (principal)
CPT/HCPCS: 97110; 97140; 97162

== ENCOUNTER 2021-11-24 09:08 | Outpatient (REF) | payer OTHER, SELFPAY ==
[2021-11-24 12:10] LABS: PSA,Total (Free>4and<10) 0.84 ng/mL (0.00-4.00); Vitamin D 25-OH Total 43.3 ng/mL (>30)
[2021-11-24 12:11] LABS: Alanine Aminotransferase 29 U/L (0-40); Anion Gap 12 (12-20); Aspartate Amino Transferase 25 U/L (5-37); Blood Urea Nitrogen 25 mg/dL (9-16); Calcium 9.5 mg/dL (8.4-10.2); Carbon Dioxide 25 mmol/L (22-29); Chloride 113 mmol/L (96-108); Cholesterol 267 mg/dL; Estimated Glomerular Filt Rate 38; Glucose Fasting 112 mg/dL (60-99); HDL Cholesterol 46 mg/dL; LDL Cholesterol Calculated 154 mg/dl; Potassium 4.7 mmol/L (3.3-5.1); Sodium 145 mmol/L (135-145); Triglycerides 339 mg/dL; Uric Acid 8.7 mg/dL (3.4-7.0)
== END 2021-11-24 09:09 | disposition home or self-care (01) ==
LOC: HO.HMGCLDS 09:08
PROVIDERS: PCP Internal Medicine; Visit Provider Internal Medicine
DX: Z00.01 Encounter for general adult medical examination with abnormal findings (principal); Z12.5 Encounter for screening for malignant neoplasm of prostate; N18.9 Chronic kidney disease, unspecified; N40.0 Benign prostatic hyperplasia without lower urinary tract symptoms; M81.0 Age-related osteoporosis without current pathological fracture
CPT/HCPCS: 36415; 80048; 80061; 82306; 84153; 84450; 84460; 84550

== ENCOUNTER 2021-12-28 09:00 | Outpatient (RCR) | payer OTHER, SELFPAY ==
--- NOTE | 2021-11-22 12:24 | MHC.PT.EP ---
[facility] [place] Office [place] Office [place] Office [address] Charmaine Hood [address] [phone] F: [phone] F: [phone] F: [phone] F: [phone] Physical Therapy Plan of Care Date of Evaluation: Date of Surgery: n/a Diagnosis: pain in L knee Assessment: Patient is a 71 year old male presenting to PT with complaints of pain in his L knee. Pt reports onset of pain began about 2 months ago due to insidious onset but shortly after using an exercise stepper. He presents today with impairments in pain, hs muscle length, quad muscle length, hip strength, and knee strength. 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 Pt expresses group home goal of being able to exercise and walk well., and is motivated to work towards this in PT. Clinical presentation today is most consistent with signs and sx associated with possible L pes anserine bursitis and pt will benefit from skilled PT to address the following problems and impairments noted upon evaluation: pain, hs muscle length, quad muscle length, hip strength, and knee strength. These problems limit the patient with the following functional activities: ambulation, transfers, stair negotiation, and ADLs. The prescribed treatment plan of care is medically necessary. Co-morbidities of HTN, osteoporosis, pulmonary embolism, pulmonary emphysema were identified and taken into considerations of plan of care. Pt was educated on HEP, role of PT, prognosis, POC. Frequency and Duration: The patient will be seen 2 x week x 4 weeks Short Term Goals: Pt will demonstrate improved hs length B in 2 weeks. Pt will demonstrate improved quad muscle length B in 2 weeks. Pt will demonstrate improved hip strength by 1/3 MMT for improved lumbopelvic stability in 2 weeks. Pt will demonstrate improved knee strength to 5/5 MMT for improved LE strength in 2 weeks. Retirement Goals: Pt will demonstrate improved LEFI score by 9 points in 4 weeks for improved overall functional mobility. Pt will demonstrate ability to put on socks with min to no discomfort in 4 weeks for return to PLOF. Pt will demonstrate ability to get in and out of his car with min to no discomfort in 4 weeks for return to PLOF. Pt will demonstrate improved ability to negotiate stairs with min to no pain n 4 weeks for improved access to his home. Treatment Plan: Modalities to reduce pain, spasms and effusion. Manual therapy to restore motion and function. Therapeutic exercise to improve strength and flexibility. Neuromuscular re-education for posture and balance. Therapeutic activities to return to functional activities of daily living. Electronically signed by: Kimberly Garsia, PT, DPT, ATC Please sign and return to therapist. Thank you for your referral.
--- NOTE | 2021-12-28 09:56 | MHC.PT.DC ---
[facility] [place] Office [place] Office [place] Office [address] Charmaine Hood [address] [phone] F: [phone] F: [phone] F: [phone] F: [phone] Physical Therapy Discharge Report Diagnosis: pain in L knee Date of Surgery: n/a Date of Evaluation: 11/22/21 Date of Discharge: 12/28/21 Treatments to Date: 10 Cancellations to Date: 1 No Shows to Date: 0 Discharge Status: Achieved Goals Improved Function Independent with HEP Discharge Summary: Pt has made good progress since beginning skilled PT. His pain is much less at this time and is really only feeling discomfort when sitting in the car and crossing his leg to put on socks. He has made good progress towards if not met all goals at this time. I am confident with continuation of his HEP he will likely progress further. He is independent and compliant with his HEP indicating he is ready for d/c. At this time max benefits of PT have been provided and skilled PT is no longer indicated at this time. Pt is in agreement with d/c at this time. Electronically signed by: iKmberly Garsia, PT, DPT, ATC Please sign and return to therapist. Thank you for your referral.
== END 2021-12-28 09:57 | disposition home or self-care (01) ==
LOC: HO.PTCHIC 09:00
PROVIDERS: PCP Internal Medicine; Visit Provider Internal Medicine
DX: M25.562 Pain in left knee (principal)
CPT/HCPCS: 97110; 97140; 97161; 97162; 97530

== ENCOUNTER → 2022-02-02 08:00 | Outpatient (BNVA) | payer OTHER, SELFPAY | PROVIDERS: PCP Internal Medicine; Visit Provider Internal Medicine Endocrinology, Diabetes & Metabolism | DX: Z13.89 Encounter for screening for other disorder (principal) ==

== ENCOUNTER 2022-02-06 07:32 | Outpatient (REF) | payer OTHER, SELFPAY ==
[2022-02-06 11:31] LABS: Albumin Level 4.3 g/dL (3.5-5.0)
[2022-02-07 11:37] LABS: Calcium (PTHI) 9.9 mg/dL (8.6-10.3); PTHI 88 pg/mL (16-77)
== END 2022-02-06 07:33 | disposition home or self-care (01) ==
LOC: HO.HMGCLDS 07:32
PROVIDERS: PCP Internal Medicine; Visit Provider Internal Medicine Endocrinology, Diabetes & Metabolism
DX: M81.0 Age-related osteoporosis without current pathological fracture (principal)
CPT/HCPCS: 36415; 82040; 83970

== ENCOUNTER 2022-07-11 12:09 | Outpatient (REF) | payer OTHER, SELFPAY ==
--- NOTE | ~2022-07-11 | XR_ITS ---
EXAMINATION: XR KNEE, LEFT CLINICAL INFORMATION: Left knee pain. COMPARISON: None TECHNIQUE: Four views of the left knee. FINDINGS: Mild medial femoral-tibial and patellofemoral degenerative joint changes are seen. There is no acute fracture, dislocation or joint effusion. The soft tissues are unremarkable. XR/XR knee LT 4V IMPRESSION: Mild degenerative joint changes most consistent with osteoarthritis. No acute abnormality.
== END 2022-07-11 12:10 | disposition home or self-care (01) ==
LOC: HO.HMGCX 12:09
PROVIDERS: PCP Internal Medicine; Visit Provider Internal Medicine
DX: M25.562 Pain in left knee (principal)
CPT/HCPCS: 73564

== ENCOUNTER 2022-08-11 | Outpatient (REF) | payer OTHER, SELFPAY ==
--- NOTE | ~2022-08-11 | XR_ITS ---
EXAMINATION: XR BILATERAL KNEE AP STANDING. [place] view OF THE LEFT KNEE. CLINICAL INFORMATION: Pain in unspecified knee COMPARISON: 07/11/2022 TECHNIQUE: AP bilateral standing view of both knees, lateral view of the left knee, and sunrise view of the left knee were obtained. FINDINGS: Left knee: No fracture or dislocation. Moderate medial compartment joint space narrowing with medial marginal osteophytosis. Mild lateral patellofemoral osteophytosis. Right knee: Mild to moderate medial compartment joint space narrowing. No fracture or dislocation. XR/XR knee standing BI IMPRESSION: Left greater than right medial compartment joint space narrowing. Mild left lateral patellofemoral osteophytosis.
--- NOTE | ~2022-08-11 | XR_ITS ---
EXAMINATION: XR BILATERAL KNEE AP STANDING. [place] view OF THE LEFT KNEE. CLINICAL INFORMATION: Pain in unspecified knee COMPARISON: 07/11/2022 TECHNIQUE: AP bilateral standing view of both knees, lateral view of the left knee, and sunrise view of the left knee were obtained. FINDINGS: Left knee: No fracture or dislocation. Moderate medial compartment joint space narrowing with medial marginal osteophytosis. Mild lateral patellofemoral osteophytosis. Right knee: Mild to moderate medial compartment joint space narrowing. No fracture or dislocation. XR/XR knee LT 1V IMPRESSION: Left greater than right medial compartment joint space narrowing. Mild left lateral patellofemoral osteophytosis.
== END 2022-08-11 00:01 | disposition home or self-care (01) ==
LOC: HO.HOSX
PROVIDERS: Visit Provider Physician Assistant
DX: M25.561 Pain in right knee (principal); M25.562 Pain in left knee
CPT/HCPCS: 73560; 73565

== ENCOUNTER 2022-08-14 14:48 | Outpatient (REF) | payer OTHER, SELFPAY ==
[2022-08-14 16:58] LABS: Hematocrit 40.9 % (42.0-52.0); Hemoglobin 14.2 g/dl (14.0-18.0); Mean Corpuscular HGB Conc 34.7 g/dl (31.0-36.0); Mean Corpuscular Hemoglobin 33.3 pg (27.0-33.0); Mean Corpuscular Volume 95.8 fL (80.0-98.0); Mean Platelet Volume 11.3 fL (9.4-12.4); Platelet Count 245 X10*3/uL (160-400); Red Blood Count 4.27 X10*6/uL (4.60-5.80); Red Cell Distribution Width 12.5 % (11.0-16.0); White Blood Count 9.6 X10*3/uL (4.8-10.8)
[2022-08-14 17:06] LABS: Appearance Urine Clear; Color Urine Yellow; Glucose Urine UA Negative (Negative); Leukocyte Esterase Urine Negative (Negative); Nitrite Urine Negative (Negative); PH 5.5 (5.0-9.0); Specific Gravity - Urine 1.015 (1.005-1.025); Urine Blood Negative (Negative); Urine Ketones Negative (Negative); Urine Protein Negative (Neg-Trace)
[2022-08-14 17:08] LABS: Bacteria Urine None Seen (None Seen); Hyaline Casts Urine 0-2 /LPF (0-2); RBC Urine 0-2 /HPF (0-2); Squamous Epithelial Cell Urine 0-2 /HPF (0-2); WBC Urine 0-5 /HPF (0-5)
[2022-08-14 17:08] LABS: Albumin Level 4.7 g/dL (3.5-5.0); Anion Gap 18 (12-20); Blood Urea Nitrogen 27 mg/dL (9-16); Calcium 9.8 mg/dL (8.4-10.2); Carbon Dioxide 24 mmol/L (22-29); Chloride 109 mmol/L (96-108); Estimated Glomerular Filt Rate 38; Phosphorus 3.4 mg/dL (2.7-4.5); Potassium 4.7 mmol/L (3.3-5.1); Sodium 146 mmol/L (135-145)
[2022-08-14 17:30] LABS: Vitamin D 25-OH Total 48.9 ng/mL (>30)
[2022-08-14 17:46] LABS: Creatinine Urine 119.79 mg/dL; Protein/Creatinine Ratio, Ur 0.07 (<0.2); Total Protein Urine Random 8 mg/dL (<12)
[2022-08-15 04:44] LABS: HBS Num1 1.13 mIU/mL (0-7.99); HBc Num1 0.09 S/CO (0.00-0.79); HBsAGNum1 0.18 S/CO (0.00-0.99); Hepatitis B Core Antibody Nonreactive (Nonreactive); Hepatitis B Surface Antigen Negative (Negative); ~HepC Num1 0.16 S/CO (0.00-0.79); ~Hepatitis B Surface Antibody NONREACTIVE (Nonreactive); ~Hepatitis C Antibody Nonreactive (Nonreactive)
[2022-08-15 10:45] LABS: Complement C3 114 mg/dL (82-185)
[2022-08-15 13:06] LABS: PTHI 119 pg/mL (16-77)
[2022-08-15 23:37] LABS: Prot Elec - Albumin 4.4 g/dL (3.8-4.8); Prot Elec - Alpha1 0.3 g/dL (0.2-0.3); Prot Elec - Alpha2 0.6 g/dL (0.5-0.9); Prot Elec - Beta 1 0.4 g/dL (0.4-0.6); Prot Elec - Beta 2 0.4 g/dL (0.2-0.5); Prot Elec - Total Protein 7.1 g/dL (6.1-8.1)
[2022-08-16 14:51] LABS: Anti Nuclear Antibody Screen NEGATIVE (NEGATIVE)
[2022-08-21 14:17] LABS: Kappa, Serum 258 mg/dL (176-443); Kappa/Lambda Ratio, Serum 1.54 (1.29-2.55); Lambda, Serum 168 mg/dL (91-240)
== END 2022-08-14 14:49 | disposition home or self-care (01) ==
LOC: HO.HMGCLDS 14:48
PROVIDERS: Absent Provider Internal Medicine Endocrinology, Diabetes & Metabolism; PCP Internal Medicine; Visit Provider Internal Medicine Nephrology
DX: N18.32 Chronic kidney disease, stage 3b (principal); R03.0 Elevated blood-pressure reading, without diagnosis of hypertension; N25.0 Renal osteodystrophy
CPT/HCPCS: 36415; 80051; 81001; 82040; 82043; 82306; 82310; 82565; 83735; 83883; 83970; 84100; 84156; 84165; 84520; 85027; 86038; 86039; 86160; 86704; 86706; 86803; 87086; 87340

== ENCOUNTER 2022-08-17 09:47 | Outpatient (REF) | payer OTHER, SELFPAY ==
--- NOTE | ~2022-08-17 | US_ITS ---
EXAMINATION: US RETROPERITONEAL LIMITED (RENAL ONLY) CLINICAL INFORMATION: Chronic kidney disease, stage 3. COMPARISON: CT abdomen and pelvis 08/17/2020. Renal ultrasound 05/01/2014. TECHNIQUE: Real-time imaging of the kidneys. FINDINGS: RIGHT KIDNEY: 9.2 x 4.8 x 5.1 cm (SAG x AP x TRV). The kidney is normal in size, contour, and echogenicity. Renal cortical thickness is normal. No calculi or focal parenchymal lesions. No hydronephrosis. LEFT KIDNEY: 9.0 x 4.7 x 5.2 cm (SAG x AP x TRV). The kidney is normal in size, contour, and echogenicity. Renal cortical thickness is normal. No calculi or focal parenchymal lesions. No hydronephrosis. US/US renal BI IMPRESSION: No significant sonographic abnormality.
== END 2022-08-17 09:48 | disposition home or self-care (01) ==
LOC: HO.US 09:47
PROVIDERS: Visit Provider Internal Medicine Nephrology
DX: N18.32 Chronic kidney disease, stage 3b (principal); R03.0 Elevated blood-pressure reading, without diagnosis of hypertension
CPT/HCPCS: 76775

== ENCOUNTER 2022-08-28 07:42 | Outpatient (REF) | payer OTHER, SELFPAY ==
[2022-08-28 12:05] LABS: Anion Gap 17 (12-20); Blood Urea Nitrogen 26 mg/dL (9-16); Calcium 9.3 mg/dL (8.4-10.2); Carbon Dioxide 24 mmol/L (22-29); Chloride 106 mmol/L (96-108); Estimated Glomerular Filt Rate 37; Glucose Random 109 mg/dL (60-115); Potassium 4.7 mmol/L (3.3-5.1); Sodium 142 mmol/L (135-145)
[2022-09-04 15:37] LABS: N-Telopeptide 33 (see note); NTXCreaRU 95 mg/dL (20-320)
== END 2022-08-28 07:43 | disposition home or self-care (01) ==
LOC: HO.HMGCLDS 07:42
PROVIDERS: Absent Provider Internal Medicine Endocrinology, Diabetes & Metabolism; PCP Internal Medicine; Visit Provider Internal Medicine Endocrinology, Diabetes & Metabolism
DX: M81.0 Age-related osteoporosis without current pathological fracture (principal)
CPT/HCPCS: 36415; 80048; 82523

== ENCOUNTER 2022-08-31 08:35 | Outpatient (REF) | payer OTHER, SELFPAY ==
--- NOTE | ~2022-08-31 | MM_ITS ---
EXAMINATION: BONE DENSITOMETRY CLINICAL INDICATION: Age-related osteoporosis without current pathological fracture. COMPARISON: Previous BD dated 06/10/2020 and baseline BD dated 01/26/2011, spine and left hip; 04/12/2018, left forearm radius 33%. TECHNIQUE: Using a [employer] DXA System (software version: 13.1) manufactured by [employer], dual-energy x-ray absorptiometry was performed of the lumbar spine, left hip, and left forearm radius 33%. The images are of good technical quality. Summary results are attached. FINDINGS: AP SPINE L1-L4: Current: BMD 1.369 g/cm2, Z-score 1.4, T-score 1.2, normal, 2.4% increase from previous, 15.3% increase from baseline (<5% change is not significant). Prior: BMD 1.337 g/cm2. Baseline: BMD 1.187 g/cm2. LEFT FEMUR, NECK: Current: BMD 0.778 g/cm2, Z-score -1.2, T-score -2.2, osteopenia. Prior: BMD 0.775 g/cm2. Baseline: BMD 0.757 g/cm2. LEFT FEMUR, TOTAL: Current: BMD 0.853 g/cm2, Z-score -1.2, T-score -1.7, osteopenia, 3.3% increase from previous, 3.1% increase from baseline (<5% change is not significant). Prior: BMD 0.826 g/cm2. Baseline: BMD 0.827 g/cm2. LEFT FOREARM RADIUS 33%: BMD 0.986 g/cm2, Z-score 0.8, T-score 0.0, normal, 7.9% increase from previous, 5.7% increase from baseline (<5% change is not significant). Prior: BMD 0.914 g/cm2. Baseline (04/12/2018): BMD 0.933 g/cm2. IDENTIFIED RISK FACTORS: Hyperthyroidism, osteoporosis, renal. HISTORY OF FRACTURE: None listed. MEDICATIONS: Calcium supplements or multivitamin, vitamin D, bisphosphonate. MM/XR DEXA appendicular skeleton IMPRESSION: 1. DIAGNOSIS: Osteopenia based on the lowest T-score value of -2.2 in the femoral neck applying World Health Organization criteria. 2. 10-YEAR FRACTURE RISK PREDICTION, FRAX: Major osteoporotic fracture (clinical spine, forearm, hip or shoulder) 8.5%. Hip fracture 2.6%. 3. Treatment Recommendations: NOF guidelines recommend consideration for treatment in postmenopausal women and men age 50 and older presenting with the following: -A hip or vertebral (clinical or morphometric) fracture. -T-score less than or equal to -2.5 at the femoral neck or spine after appropriate evaluation to exclude secondary causes. -Low bone mass at the hip or spine and a 10-year fracture probability by FRAX of greater than or equal to 3% for hip fracture or greater than or equal to 20% for major osteoporotic fracture based on the [place] adapted WHO algorithm. 4. Other Recommendations: All treatment decisions require clinical judgment and consideration of individual patient factors, including patient preferences, comorbidities, previous drug use, risk factors not captured in the FRAX model (e.g. frailty, falls, vitamin D deficiency, increased bone turnover, interval significant decline in bone density) and possible under or overestimation of fracture risk by FRAX. Additional medical evaluation for secondary cause of low bone mineral density may be appropriate. FUTURE SCAN RECOMMENDATION: People with diagnosed cases of osteoporosis or at high risk for fracture should have regular bone mineral density tests. For patients eligible for Medicare, routine testing is allowed once every 2 years. The testing frequency can be increased to one year for patients who have rapidly progressing disease, those who are receiving or discontinuing medical therapy to restore bone mass, or have additional risk factors.
== END 2022-08-31 08:36 | disposition home or self-care (01) ==
LOC: HO.MAMMO 08:35
PROVIDERS: PCP Internal Medicine; Visit Provider Internal Medicine Endocrinology, Diabetes & Metabolism
DX: Z13.820 Encounter for screening for osteoporosis (principal); M81.0 Age-related osteoporosis without current pathological fracture
CPT/HCPCS: 77081

== ENCOUNTER 2022-10-13 08:13 | Outpatient (REF) | payer OTHER, SELFPAY ==
--- NOTE | ~2022-10-13 | US_ITS ---
EXAMINATION: US RETROPERITONEAL LIMITED (RENAL ONLY) CLINICAL INFORMATION: CKD stage 3. COMPARISON: Renal ultrasound 08/17/2022 TECHNIQUE: Real-time imaging of the kidneys. FINDINGS: RIGHT KIDNEY: 10.7 x 5.1 x 5.3 cm (SAG x AP x TRV). The kidney is normal in size, contour, and echogenicity. Renal cortical thickness is normal. No calculi or focal parenchymal lesions. No hydronephrosis. LEFT KIDNEY: 10.7 x 5.5 x 3.8 cm (SAG x AP x TRV). The kidney is normal in size, contour, and echogenicity. Renal cortical thickness is normal. No calculi or focal parenchymal lesions. No hydronephrosis. US/US renal BI IMPRESSION: Unremarkable renal ultrasound..
[2022-10-13 11:35] LABS: Estimated Average Glucose 103 mg/dL; Hemoglobin A1c % 5.2 %
[2022-10-13 12:06] LABS: Alanine Aminotransferase 26 U/L (0-40); Albumin Level 4.3 g/dL (3.5-5.0); Alkaline Phosphatase 71 U/L (39-117); Anion Gap 14 (12-20); Aspartate Amino Transferase 21 U/L (5-37); Bilirubin Total 0.9 mg/dL (0.0-1.0); Blood Urea Nitrogen 26 mg/dL (9-16); Calcium 9.5 mg/dL (8.4-10.2); Carbon Dioxide 24 mmol/L (22-29); Chloride 108 mmol/L (96-108); Cholesterol 273 mg/dL; Estimated Glomerular Filt Rate 39; Glucose Fasting 119 mg/dL (60-99); HDL Cholesterol 52 mg/dL; LDL Cholesterol Calculated 189 mg/dl; Potassium 4.3 mmol/L (3.3-5.1); Sodium 142 mmol/L (135-145); Total Protein 6.9 g/dL (6.5-8.0); Triglycerides 164 mg/dL; Vitamin D 25-OH Total 39.7 ng/mL (>30)
== END 2022-10-13 08:14 | disposition home or self-care (01) ==
LOC: HO.HMGCX 08:13
PROVIDERS: Absent Provider Internal Medicine; PCP Internal Medicine; Visit Provider Internal Medicine Nephrology
DX: I12.9 Hypertensive chronic kidney disease with stage 1 through stage 4 chronic kidney disease, or unspecified chronic kidney disease (principal); N18.32 Chronic kidney disease, stage 3b; R03.0 Elevated blood-pressure reading, without diagnosis of hypertension; N25.0 Renal osteodystrophy; R73.01 Impaired fasting glucose
CPT/HCPCS: 36415; 76775; 80053; 80061; 82306; 83036

== ENCOUNTER 2022-10-31 07:55 | Emergency (ER) | payer OTHER, SELFPAY ==
--- NOTE | ~2022-10-31 | XR_ITS ---
EXAMINATION: XR HIP, LEFT CLINICAL INFORMATION: Pain. COMPARISON: None TECHNIQUE: AP upright, AP supine, and frog-leg lateral views of the left hip. FINDINGS: Bones and soft tissues appear unremarkable. No fracture identified. Alignment is anatomic. Hip joint space appears maintained. Surgical clips project over the right lateral abdomen. XR/XR hip LT w PEL1V IMPRESSION: Unremarkable plain film examination of the left hip.
[2022-10-31 08:05] VITALS: BP 194/111; PULSE 103; RESP 16; TEMP 36.9; O2SAT 98; BMI 29.0
--- NOTE | 2022-10-31 08:05 | ED_ITS ---
HPI - General Adult General Chief complaint: Extremity Injury, Lower Stated complaint: L hip pain Time Seen by Provider: 10/31/22 08:02 Source: patient Mode of arrival: ambulatory Limitations: no limitations History of Present Illness HPI narrative: Patient is a 72 year old assigned male at with a history of chronic left hip pain and HTN presenting to the emergency department today with an acute flare of the left hip pain. Patient states that he has had this pain before and approximately 18 months ago, Dr. Karimi manipulated his hip and made it feel significantly better. Patient states that he has tried taking tramadol at home but it isn't helping. Patient denies any dizziness, lightheadedness, abdominal pain, nausea, vomiting, fever, chills, blurry vision, double vision, loss of vision, chest pain, difficulty breathing, shortness of breath, back pain, night sweats, pain with urination, increased urinary frequency, increased urinary urgency, blood in his urine or stool, syncope or a near syncopal episode, recent trauma or falls, bowel incontinence, bladder incontinence, bowel retention, bladder retention, or any other complaints at this time. Onset (ago): week(s) Location: left (hip) Severity: mild Severity scale (1-10): 3 Quality: aching and dull Pain Consistency: constant Relieving factors: none Exacerbating factors: none Associated symptoms: denies other symptoms Treatments prior to arrival: none Related Data Home Medications Medication Instructions Recorded Confirmed acetaminophen 500 mg tablet 500 mg PO Q6H PRN Pain 08/26/20 07/11/22 (Tylenol Extra Strength) calcium citrate 315 mg 2 tab PO DAILY 08/26/20 07/11/22 calcium-vitamin D3 6.25 mcg (250 unit) tablet (Citracal + Vitamin D Maximum) [id number] tablet tab 09/29/20 07/11/22 aspirin 81 mg tablet,delayed 81 mg PO DAILY 01/03/21 07/11/22 release (Adult Low Dose Aspirin) Previous Rx's Medication Instructions Recorded colchicine 0.6 mg tablet 0.6 mg PO DAILY PRN GOUT #30 tabs 11/15/21 losartan 50 mg tablet 50 mg PO DAILY #90 tabs 11/15/21 risedronate 35 mg tablet 35 mg PO QWEEK #12 tabs 07/02/22 cetirizine 10 mg tablet 10 mg PO BEDTIME PRN allergy 07/11/22 symptoms/postnasal drip #30 tabs cyclobenzaprine 10 mg tablet 10 mg PO BEDTIME #14 tabs 10/25/22 tramadol 50 mg tablet 50 mg PO DAILY #7 tabs 10/25/22 prednisone 20 mg tablet 20 mg PO DAILY 5 days #14 tabs 10/31/22 Allergies Allergy/AdvReac Type Severity Reaction Status Date / Time lisinopril Allergy Unknown cough Verified 10/25/22 08:19 Sulfa (Sulfonamide Allergy Unknown UNK, Verified 10/25/22 08:19 Antibiotics) unknown [SULFA(SULFONAMIDE ANTIBIOTICS)] Review of Systems Constitutional: Constitutional: Reports no additional constitutional complaints, Denies chills, Denies fever(s) and Denies night sweats Eyes: Eyes: Reports no additional eye complaints, Denies blurry vision, Denies change in vision, Denies diplopia, Denies eye discharge, Denies loss of vision and Denies eye pain ENT: Denies dizziness Cardiovascular: Cardiovascular: Reports no additional cardiovascular complaints, Denies chest pain, Denies lightheadedness, Denies Loss of Consciousness and Denies dyspnea Respiratory: Respiratory: Reports no additional respiratory complaints and Denies dyspnea Gastrointestinal: Gastrointestinal: Reports no additional gastrointestinal complaints, Denies abdominal pain, Denies melena, Denies hematochezia, Denies change in bowel habits and Denies change in stool character Genitourinary: Genitourinary: Reports no additional male genitourinary complaints, Denies hematuria, Denies oliguria, Denies difficulty urinating, Denies dysuria, Denies urinary frequency, Denies urinary hesitancy, Denies urinary incontinence and Denies urinary urgency Musculoskeletal: Musculoskeletal: Reports no additional musculoskeletal complaints, Denies numbness and Denies tingling Comments: left hip pain Neurologic: Denies dizziness, Denies loss of vision, Denies numbness and Denies tingling Psychiatric: Psychiatric: Reports no additional psychiatric complaints Endocrine: Endocrine: Reports no additional endocrine complaints Hematologic/Lymphatic: Hematologic/Lymphatic: Reports no additional hematologic/lymphatic complaints Allergic/Immunologic: Allergic/Immunologic: Reports no additional allergic/immunologic complaints PMFSH Past Medical History Attestation statement: The following information was validated with the patient. Source: old records reviewed and nursing notes reviewed Medical History BPH (benign prostatic hyperplasia) CKD (chronic kidney disease) Dyslipidemia (high LDL; low HDL) Ground glass opacity present on imaging of lung Hypertension Impaired fasting glucose Left medial knee pain Non-toxic multinodular goiter Osteoporosis Pulmonary embolism Pulmonary embolism Pulmonary emphysema Surgical History History of appendectomy History of prostate surgery Hx of tonsillectomy Family History Family History Brother Coronary artery disease Sister Lung cancer Bone cancer Brain cancer Social History Social History Household Members: Spouse Housing: House Do you presently have visiting nurse or other home services: No Alcohol intake: current Alcohol intake frequency: 0-2 drinks per day Alcohol type: wine Patient Tobacco Use Status: Never used Tobacco e-Cigarette/Vaping Use: Never Used Second Hand Smoke Exposure: No Advance Directives: Yes Advance Directives on File: Yes Advance Directives Date on File: 08/17/20 service: No Current occupational status: employed 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 Cognitive needs: No Hearing needs: No Vision needs: Yes Physical Exam ED Vital Signs: Vital Signs - 24 hr 10/31/22 08:05 10/31/22 08:08 Temperature 98.4 F 97.9 F Pulse Rate 103 H 99 Respiratory Rate 16 16 Blood Pressure 194/111 H 197/119 H Pulse Oximetry 98 99 Oxygen Delivery Method Room Air Room Air BMI result Body Mass Index 29.0 Const General: cooperative, no acute distress, alert and awake Nutritional Appearance: well nourished Orientation/consciousness: patient oriented x3 Limitations: no limitations [facility] Head: Yes normal to inspection and Yes atraumatic Ears: hearing grossly normal bilaterally and external ears normal General nose exam: Normal external nose present, no nasal discharge noted and no epistaxis Face and sinus: Yes normal facial exam, No abrasion and No laceration Mouth: Normal oral and palatal mucosa present, no drooling and no muffled voice Eyes General: appearance normal, both eyes and all related structures Periorbital: periorbital findings normal Eyelids: Yes eyelids normal Conjunctivae: conjunctivae normal Pupils: Equal, round and reactive pupils present EOM: EOMs intact bilaterally Neck Neck: Yes normal visual inspection, Yes full ROM and Yes no lymphadenopathy Chest Chest palpation & inspection: normal inspection of the chest Resp Effort & Inspection: normal respiratory effort and able to speak in complete sentences Auscultation: clear to auscultation bilaterally Cardio Rate: regular rate Rhythm: regular rhythm GI Inspection: Yes normal to inspection Palpation (GI): Soft to palpation, not firm, nontender, no guarding and not rigid General: Yes no CVA tenderness Back/Spine/Pelvis Back: no CVA tenderness Cervical Spine: normal cervical lordosis and cervical ROM normal Thoracic/Lumbar Spine: thoracic and lumbar spine normal to inspection and thoraco-lumbar ROM normal Pelvis: no pain with anterior-posterior compression Neuro General: patient oriented x3 and moves all extremities Cranial nerves: Yes Equal, round and reactive pupils present Cognition (Neuro): normal cognition Motor exam (neuro): 5/5 motor strength present throughout Sensory Exam: Normal double simultaneous stimulation for sensation Coordination: alpkkg-ne-izls test normal Extrem General: Yes normal to inspection, Yes full ROM and Yes capillary refill normal Psych Appearance: grossly normal Mental Status: mental status grossly normal Affect: normal affect Attitude: cooperative Thought process: Normal thought process present Thought content: Normal thought content present Insight: Good insight present (Psych) Medical Decision Making Medical Decision Making MDM Narrative: Patient is a 72 year old assigned male at with a history of chronic / intermittent left hip pain and HTN presenting to the emergency department today with an acute flare of left hip pain. Patient's physical exam was unremarkable. Patient's let hip x-ray showed no acute process. Dr. Karimi evaluated the patient and adjusted his hip which he stated resolved his pain. I explained my physical exam findings as well as all test results to the patient. I answered all que stions asked by the patient. I stressed the importance of the patient taking his medication as prescribed. I stressed the importance of the patient following up with his primary care provider. I stressed the importance of the patient returning to the emergency department immediately if his symptoms were to worsen or if he were to develop any dizziness, shortness of breath, difficulty breathing, chest pain, blurry vision, loss of vision, nausea, vomiting, abdominal pain, fever, chills, back pain, or any other complaints. Patient verbalized agreement and understanding with this treatment plan and discharge. Differential Diagnosis Differential Diagnoses: The differential diagnosis associated with the presentation includes left hip pain, SI joint pain Radiology Impression Discussion of test interpretation with radiology: I have reviewed the radiologist's reading. Radiologist Impression: My interpretation is in agreement with the radiologist's impression of this imaging study. EXAMINATION: XR HIP, LEFT CLINICAL INFORMATION: Pain. COMPARISON: None TECHNIQUE: AP upright, AP supine, and frog-leg lateral views of the left hip. FINDINGS: Bones and soft tissues appear unremarkable. No fracture identified. Alignment is anatomic. Hip joint space appears maintained. Surgical clips project over the right lateral abdomen. XR/XR hip LT w PEL1V IMPRESSION: Unremarkable plain film examination of the left hip. Dictated By: Armen Sagastume Signed By: Electronically signed by [email or web address]?Tanika 10/31/22 0910 Discharge Plan Discharge Clinical Impression: Acute hip pain Patient Disposition: Home, Self-Care Instructions: Hip Pain (ED) Additional Instructions: Follow up with your primary care provider. Return to the emergency department immediately if your symptoms worsen or if you develop any dizziness, shortness of breath, difficulty breathing, chest pain, blurry vision, loss of vision, nausea, vomiting, abdominal pain, fever, chills, back pain, or any other complaints. Prescriptions: New prednisone 20 mg tablet 20 mg PO DAILY 5 Days Qty: 14 0RF Rx Instructions: Take 3 tablets for 3 days, 2 tablets for 2 days, and 1 tablet for 1 day No Action risedronate 35 mg tablet 35 mg PO QWEEK Qty: 12 3RF Centrum Silver Tablet calcium citrate-vitamin D3 [Citracal + D Maximum] 315 mg-6.25 mcg (250 unit) tablet 2 tab PO DAILY acetaminophen [Tylenol Extra Strength] 500 mg tablet 500 mg PO Q6H PRN (Reason: Pain) colchicine 0.6 mg tablet 0.6 mg PO DAILY PRN (Reason: GOUT) Qty: 30 1RF losartan 50 mg tablet 50 mg PO DAILY Qty: 90 3RF cetirizine 10 mg tablet 10 mg PO BEDTIME PRN (Reason: allergy symptoms/postnasal drip) Qty: 30 0RF tramadol 50 mg tablet 50 mg PO DAILY Qty: 7 0RF cyclobenzaprine 10 mg tablet 10 mg PO BEDTIME Qty: 14 0RF aspirin [Adult Low Dose Aspirin] 81 mg tablet,delayed release (DR/EC) 81 mg PO DAILY Referrals: Molly Foster MD [Primary Care Provider] - Interventions: ED Discharge Assessment Last Done: 10/31/22 09:37 Discharge Date/Time: 10/31/22 09:37 Print Language: Irish
[2022-10-31 08:08] VITALS: BP 197/119; PULSE 99; RESP 16; TEMP 36.6; O2SAT 99
== END 2022-10-31 09:37 | disposition home or self-care (01) ==
PROVIDERS: Emergency Provider Student in an Organized Health Care Education/Training Program; PCP Internal Medicine
DX: M25.552 Pain in left hip (principal); I12.9 Hypertensive chronic kidney disease with stage 1 through stage 4 chronic kidney disease, or unspecified chronic kidney disease; N18.9 Chronic kidney disease, unspecified; E78.5 Hyperlipidemia, unspecified; Z79.82 Long term (current) use of aspirin; Z79.899 Other long term (current) drug therapy
CPT/HCPCS: 73502; 99284

== ENCOUNTER 2022-11-17 11:21 | Outpatient (AMB) | payer OTHER, SELFPAY ==
--- NOTE | 2022-11-17 11:28 | MHC.PC.OV ---
Vital Signs 11/17/22 11:31 Height 5 ft 9 in Weight 197 lb BMI 29.0 BP 156/90 H Blood Pressure Location Lt brachial Position Sitting Pulse 108 H Pulse Source Pulse Oximeter Pulse Oximetry (%) 99 Oxygen Delivery Method Room Air Intake Visit Reasons: Annual PE Intake Note: Pt is here today for his Physical Exam Allergies lisinopril Allergy (Unknown, Verified 12/16/23 15:49) cough Sulfa (Sulfonamide Antibiotics) [SULFA(SULFONAMIDE ANTIBIOTICS)] Allergy (Unknown, Verified 12/16/23 15:49) UNK, unknown Medication List - Last Reconciled 12/16/23 by Molly Foster MD acetaminophen (Tylenol Extra Strength) 500 mg PO Q6H PRN aspirin (Adult Low Dose Aspirin) 81 mg PO DAILY calcium citrate-vitamin D3 315 mg-6.25 mcg (250 unit) (Citracal + Vitamin D Maximum) 2 tabs PO DAILY cetirizine 10 mg PO BEDTIME PRN colchicine 0.6 mg PO DAILY PRN losartan 50 mg PO DAILY devrkvuxsbvm-kkagmkyg-glongs tabs risedronate 35 mg PO QWEEK rosuvastatin 5 mg PO DAILY 90 days Tobacco use date assessed: 11/17/22 Fall risk assessment: No Falls in past year Last assessed Fall Risk: 11/17/22 HPI Annual PE HPI Details 73-year-old male here today for his physical exam. He has dyslipidemia currently on rosuvastatin, has prediabetes, osteoporosis, CKD and hypertension as well as benign prostatic hyperplasia and nontoxic multinodular goiter, currently asymptomatic.. He has been feeling well with no complaints at present time.. Currently followed by Dr. Olguin for his osteoporosis, currently on risedronate weekly. He sees Dr. Leung for his chronic kidney disease stage 3 and hypertension. Laboratory Tests 10/08/23 08:15 Estimat Average Gl ucose 117 Hemoglobin A1c % 5.7 AST 20 ALT 24 Triglycerides 99 Cholesterol 189 LDL Cholesterol, C alc 120 H HDL Cholesterol 50 PFSH Medical History (Updated 12/16/23 @ 16:37 by Molly Foster MD) History of pulmonary embolism Dyslipidemia (high LDL; low HDL) Impaired fasting glucose Left medial knee pain Pulmonary emphysema Non-toxic multinodular goiter BPH (benign prostatic hyperplasia) Ground glass opacity present on imaging of lung Pulmonary embolism CKD (chronic kidney disease) Osteoporosis Hypertension Surgical History Hx of tonsillectomy History of prostate surgery History of appendectomy Family History Brother Coronary artery disease Sister Lung cancer Bone cancer Brain cancer Social History Household Members: Spouse Housing: House Do you presently have visiting nurse or other home services: No Alcohol intake: current Alcohol intake frequency: 0-2 drinks per day Alcohol type: wine 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 1. Little interest or pleasure in doing things: not at all 2. Feeling down, depressed, or hopeless: not at all 3. Trouble falling or staying asleep, or sleeping too much: more than half the days 4. Feeling tired or having little energy: more than half the days 5. Poor appetite or overeating: not at all 6. Feeling bad about yourself - or that you are a failure or have let yourself or your family down: not at all 7. Trouble concentrating on things, such as reading the newspaper or watching television: not at all 8. Moving or speaking so slowly that other people could have noticed. Or the opposite - being so fidgety or restless that you have been moving around a lot more than usual: not at all 9. Thoughts that you would be better off or of hurting yourself in some way: not at all Total score: 4 Depression Screening Interpretation: Negative 02092 - PHQ-9 Billing: Yes Source: Developed by Drs. Dre Gallegos, Mary Bui, Alan Santos and colleagues, with an educational lesvia from [employer]. Thrive Questionnaire Date Thrive assessed: 11/17/22 I am a: Patient What is your living situation today?: I have a steady place to live Within the past 12 months, did the food you bought not last and you didn't have the money to get more?: Never true Within the past 12 months, did you worry whether your food would run out before you got money to buy more?: Never true Do you have trouble paying for medicines?: No Do you have trouble getting transportation to medical appointments?: No Do you have trouble paying your heating and electricity bill?: No Do you have trouble taking care of your child, family member or friend?: No Do you have trouble with day-to-day activities such as bathing, preparing meals, shopping, managing finances, etc.?: No Are you currently unemployed and looking for a job?: No Are you interested in more education?: No AUDIT C Alcohol Use Questionnaire (AUDIT-C) 1. How often do you have a drink containing alcohol?: 4 or more times a week 2. How many drinks containing alcohol do you have on a typical day when you are drinking?: 1 or 2 3. How often do you have six or more drinks on one occasion?: Never Total Score: 4 AMANDA-7 AMB Questionnaire AMANDA-7 Date AMANDA - 7 assessed: 11/17/22 Feeling nervous, anxious, or on edge: 1 = Several days Not being able to stop or control worryin = Several days Worrying too much about different things: 2 = More than half the days Trouble relaxin = Not at all Being so restless that it is hard to sit still: 1 = Several days Becoming easily annoyed or irritable: 0 = Not at all Feeling afraid as if something awful might happen: 0 = Not at all Total AMANDA-7 score (0-4 normal; 5-9 mild; 10-14 moderate; 15-21 severe): 5 Source: Developed by Drs. Dre Gallegos, Mary Bui, Alan Santos and colleagues, with an educational lesvia from [employer]. AMANDA-7 Assessment Billing AMANDA-7 Assessment Tool: AMANDA-7 Assessment 79671 Review of Systems Const Reports no additional complaints Eyes Denies change in vision ENT Reports no additional complaints Card Denies chest pain, Denies irregular heart rhythm and Denies leg edema Resp Reports no additional complaints GI Reports no additional complaints Reports no additional complaints Musc Reports arthralgias (mild) Skin/Breast Denies lesions and Denies rash Neuro Reports no additional complaints Psych Reports no additional complaints Endo Reports no additional complaints Deven/Lymph Reports no additional complaints Aller/Immun Reports no additional complaints Physical exam (Primary Care) Vital Signs: Last Vital Signs Pulse 108 H 11/17/22 11:31 BP 156/90 H 11/17/22 11:31 Pulse Ox 99 11/17/22 11:31 Oxygen Delivery Method Room Air 11/17/22 11:31 BMI result Body Mass Index 29.0 Tobacco/Smoking Status: Tobacco use Status Tobacco use date assessed 11/17/22 11/17/22 11:38 Patient Tobacco Use Status Never used Tobacco 11/17/22 11:29 e-Cigarette/Vaping Use Never Used 11/17/22 11:29 PHQ-9: PHQ-9 Score PHQ-9: Total score 7 11/17/22 12:26 Depression Screening Interpretation: Negative Thrive Assessment: Date of Thrive Assessment Date Thrive assessed 11/17/22 11/17/22 11:38 Const General: comfortable and no acute distress Nutritional Appearance: overweight Orientation/consciousness: patient oriented x3 [facility] General nose exam: Normal external nose present and No nasal discharge present Face and sinus: Yes sinuses nontender and Yes face symmetric Eyes General: appearance normal, both eyes and all related structures Neck Other: Supple, no lymphadenopathy, thyroid gland nonpalpable Resp Auscultation: clear to auscultation bilaterally Cardio Other: S1-S2 present regular rate and rhythm GI Palpation (GI): Soft to palpation, nontender, no guarding and no masses Auscultation: normal bowel sounds General: Yes no CVA tenderness Male General Exam: Yes normal external exam Back/Spine/Pelvis Back: no CVA tenderness and No back tenderness Skin General skin exam: no rashes or lesions noted Neuro General: patient oriented x3, gait normal, tone normal, moves all extremities, Normal light touch and pain sensation, no focal motor deficits and CN's II-XI intact bilaterally Extrem Other: No gross bone deformity or joint swelling seen. , standard as on palpation over the medial aspect of left knee joint, with mild crepitus noted Psych Appearance: grossly normal and well kempt Mental Status: mental status grossly normal Speech and movement: Normal speech and movement present Affect: normal affect Attitude: cooperative Thought process: Normal thought process present Thought content: Normal thought content present Assessment and Plan Assessment & Plan (1) Annual visit for general adult medical examination with abnormal findings: Code(s): Z00.01 - Encounter for general adult medical examination with abnormal findings Plan: Reviewed recent fasting lab results with patient. Continue with regular dental visit every 6 months and regular eye exams, at least every 2 years. Take adequate calcium in diet and vitamin-D 3 at 2000 IU per cap once a day, in addition to weight-bearing exercises to help maintain good muscle tone and weight control. Instructed to do self- testicular exam check for any mass . Up-to-date with his vaccinations and his screening colonoscopy done in 2015, due again in 2025 (2) Dyslipidemia: Code(s): E78.5 - Hyperlipidemia, unspecified Plan: Started on rosuvastatin 5 mg taken 1 tablet twice a week Continue with a low-cholesterol diet regular exercise and recheck lipids again in 3 month (3) Osteoarthritis of left knee: Code(s): M17.12 - Unilateral primary osteoarthritis, left knee Qualifiers: Osteoarthritis type: unspecified Qualified Code(s): M17.12 - Unilateral primary osteoarthritis, left knee Plan: take Tylenol arthritis every 6 hours as needed for joint pain. Short-term prescription sent for diclofenac sodium 50 mg to take 1 tab twice a day for severe joint pains only. Prescription also sent for tizanidine to take as needed for muscle spasm (4) BPH (benign prostatic hyperplasia): Code(s): N40.0 - Benign prostatic hyperplasia without lower urinary tract symptoms Plan: Followed by Urology (5) Osteoporosis: Comment: Currently being followed by Dr. OLGUIN Code(s): M81.0 - Age-related osteoporosis without current pathological fracture Qualifiers: Osteoporosis type: age-related Presence of current pathological fracture: without current pathological fracture Qualified Code(s): M81.0 - Age-related osteoporosis without current pathological fracture Plan: Currently on risedronate followed by Dr. Olguin (6) CKD (chronic kidney disease): Comment: Followed by Dr. Leung Code(s): N18.9 - Chronic kidney disease, unspecified Qualifiers: Chronic kidney disease stage: stage 3 (moderate) Chronic kidney disease stage 3 subtype: stage 3a (GFR 45-59) Qualified Code(s): N18.31 - Chronic kidney disease, stage 3a Plan: Sees Dr. Leung (7) Hypertension: Code(s): I10 - Essential (primary) hypertension Qualifiers: Hypertension type: primary hypertension Qualified Code(s): I10 - Essential (primary) hypertension Plan: Continue with losartan 50 mg 1 daily, continue monitor blood pressure, followed by Dr. Leung (8) Impaired fasting glucose: Code(s): R73.01 - Impaired fasting glucose Plan: Your fasting blood sugars elevated above 100 mg/dL. Impaired glucose metabolism makes you at risk for developing diabetes mellitus type 2, as well as heart attack and stroke later on. Lifestyle changes at just weight loss, healthy eating habits, and regular exercise are important, and can prevent the progression to diabetes Orders: Orders Alanine Aminotransferase 3 Months E78.5 - Hyperlipidemia, unspecified Aspartate Amino Transferase 3 Months E78.5 - Hyperlipidemia, unspecified Creatine Kinase Total 3 Months E78.5 - Hyperlipidemia, unspecified Lipid Panel 3 Months E78.5 - Hyperlipidemia, unspecified Medications: New rosuvastatin 5 mg PO 2XW 26 tabs 1RF 90 days E78.5 - Hyperlipidemia, unspecified tizanidine 4 mg PO BEDTIME PRN 30 tabs 0RF muscle spasticity diclofenac potassium 50 mg PO DAILY PRN 10 tabs 0RF hip pain Coding Level of Care Code Est Pt Prev Care >65y(94853) Diagnoses Annual visit for general adult medical examination with abnormal findings Z00.01 Dyslipidemia E78.5 Osteoarthritis of left knee, unspecified osteoarthritis type M17.12 Osteoarthritis type: unspecified BPH (benign prostatic hyperplasia) N40.0 Age-related osteoporosis without current pathological fracture M81.0 Osteoporosis type: age-related Presence of current pathological fracture: without current pathological fracture Stage 3a chronic kidney disease N18.31 Chronic kidney disease stage: stage 3 (moderate) Chronic kidney disease stage 3 subtype: stage 3a (GFR 45-59) Primary hypertension I10 Hypertension type: primary hypertension Impaired fasting glucose R73.01 Additional Codes AMANDA-7 Assessment Billing - AMANDA-7 Assessment Tool: AMANDA-7 Assessment [id number] ([id number])
[2022-11-17 11:31] VITALS: BP 156/90; PULSE 108; O2SAT 99; BMI 29.0
== END 2022-11-17 12:30 | disposition home or self-care (01) ==
LOC: HO.HMGC 11:21
PROVIDERS: PCP Internal Medicine; Visit Provider Internal Medicine
DX: Z00.01 Encounter for general adult medical examination with abnormal findings (principal); E78.5 Hyperlipidemia, unspecified; M17.12 Unilateral primary osteoarthritis, left knee; N40.0 Benign prostatic hyperplasia without lower urinary tract symptoms; M81.0 Age-related osteoporosis without current pathological fracture; N18.31 Chronic kidney disease, stage 3a; I10 Essential (primary) hypertension; R73.01 Impaired fasting glucose
CPT/HCPCS: 99499

== ENCOUNTER → 2022-12-26 09:36 | Outpatient (BNVA) | payer OTHER, SELFPAY | PROVIDERS: PCP Internal Medicine; Visit Provider Physician Assistant | DX: M17.12 Unilateral primary osteoarthritis, left knee (principal) | CPT/HCPCS: 20610; J1040 ==

== ENCOUNTER → 2023-01-26 10:35 | Outpatient (BNVA) | payer OTHER, SELFPAY | PROVIDERS: PCP Internal Medicine; Visit Provider Physician Assistant | DX: Z13.89 Encounter for screening for other disorder (principal) ==

== ENCOUNTER 2023-02-13 07:53 | Outpatient (REF) | payer OTHER, SELFPAY ==
[2023-02-13 12:29] LABS: Alanine Aminotransferase 29 U/L (0-40); Aspartate Amino Transferase 19 U/L (5-37); Cholesterol 220 mg/dL; HDL Cholesterol 52 mg/dL; LDL Cholesterol Calculated 152 mg/dl; Triglycerides 82 mg/dL
== END 2023-02-13 07:54 | disposition home or self-care (01) ==
LOC: HO.HMGCLDS 07:53
PROVIDERS: PCP Internal Medicine; Visit Provider Internal Medicine
DX: E78.5 Hyperlipidemia, unspecified (principal)
CPT/HCPCS: 36415; 80061; 82550; 84450; 84460

== ENCOUNTER 2023-02-19 06:20 | Outpatient (REF) | payer OTHER, SELFPAY ==
[2023-02-19 12:37] LABS: Alanine Aminotransferase 23 U/L (0-40); Anion Gap 12 (12-20); Aspartate Amino Transferase 17 U/L (5-37); Blood Urea Nitrogen 26 mg/dL (9-16); Calcium 9.5 mg/dL (8.4-10.2); Carbon Dioxide 28 mmol/L (22-29); Chloride 108 mmol/L (96-108); Cholesterol 214 mg/dL; Estimated Glomerular Filt Rate 39; Glucose Fasting 116 mg/dL (60-99); HDL Cholesterol 54 mg/dL; LDL Cholesterol Calculated 143 mg/dl; Potassium 4.1 mmol/L (3.3-5.1); Sodium 144 mmol/L (135-145); Triglycerides 88 mg/dL
[2023-02-19 12:38] LABS: Vitamin D 25-OH Total 61.1 ng/mL (>30)
== END 2023-02-19 06:21 | disposition home or self-care (01) ==
LOC: HO.HMGCLDS 06:20
PROVIDERS: PCP Internal Medicine; Visit Provider Internal Medicine
DX: I12.9 Hypertensive chronic kidney disease with stage 1 through stage 4 chronic kidney disease, or unspecified chronic kidney disease (principal); N18.9 Chronic kidney disease, unspecified; E78.5 Hyperlipidemia, unspecified; M81.0 Age-related osteoporosis without current pathological fracture; R73.01 Impaired fasting glucose
CPT/HCPCS: 36415; 80048; 80061; 82306; 84450; 84460

== ENCOUNTER 2023-02-21 10:27 | Outpatient (AMB) | payer OTHER, SELFPAY ==
--- NOTE | 2023-02-21 10:36 | MHC.PC.OV ---
Vital Signs 02/21/23 10:39 Height 5 ft 9 in Weight 206 lb BMI 30.4 BP 122/66 Blood Pressure Location Lt brachial Position Sitting Pulse 102 H Pulse Source Pulse Oximeter Pulse Oximetry (%) 98 Oxygen Delivery Method Room Air Intake Visit Reasons: 3M follow up Intake Note: Pt is here today for his 3 months f/u Allergies lisinopril Allergy (Unknown, Verified 06/27/23 00:37) cough Sulfa (Sulfonamide Antibiotics) [SULFA(SULFONAMIDE ANTIBIOTICS)] Allergy (Unknown, Verified 06/27/23 00:37) UNK, unknown Medication List - Last Reconciled 02/21/23 by Molly Foster MD acetaminophen (Tylenol Extra Strength) 500 mg PO Q6H PRN aspirin (Adult Low Dose Aspirin) 81 mg PO DAILY calcium citrate-vitamin D3 315 mg-6.25 mcg (250 unit) (Citracal + Vitamin D Maximum) 2 tabs PO DAILY cetirizine 10 mg PO BEDTIME PRN colchicine 0.6 mg PO DAILY PRN losartan 50 mg PO DAILY ucjhsuqoumba-ldsvvvvb-fxotho tabs nifedipine ER 60 mg PO DAILY risedronate 35 mg PO QWEEK rosuvastatin 5 mg PO 2XW 90 days Tobacco use date assessed: 02/21/23 Fall risk assessment: No Falls in past year Last assessed Fall Risk: 02/21/23 HPI 3M follow up HPI Details 72-year-old male with here today for follow-up on his lipids, currently taking rosuvastatin 5 mg 1 tablet twice a week only and has been trying to follow recommended diet and gets regular exercise. Recent fasting labs showed still elevated LDL cholesterol PFSH Medical History BPH (benign prostatic hyperplasia) CKD (chronic kidney disease) Dyslipidemia Dyslipidemia (high LDL; low HDL) Ground glass opacity present on imaging of lung Hypertension Impaired fasting glucose Left medial knee pain Non-toxic multinodular goiter Osteoporosis Pulmonary embolism Pulmonary embolism Pulmonary emphysema Surgical History History of appendectomy History of prostate surgery Hx of tonsillectomy Family History Brother Coronary artery disease Sister Lung cancer Bone cancer Brain cancer Social History Household Members: Spouse Housing: House Do you presently have visiting nurse or other home services: No Alcohol intake: current Alcohol intake frequency: 0-2 drinks per day Alcohol type: wine Patient Tobacco Use Status: Never used Tobacco e-Cigarette/Vaping Use: Never Used Second Hand Smoke Exposure: No Advance Directives Date on File: 08/17/20 service: No Current occupational status: employed 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 How often do you have a drink containing alcohol?: 4 or more times a week 2. How many drinks containing alcohol do you have on a typical day when you are drinking?: 1 or 2 3. How often do you have six or more drinks on one occasion?: Never Total Score: 4 AMANDA-7 AMB Questionnaire AMANDA-7 Date AMANDA - 7 assessed: 11/17/22 Source: Developed by Drs. Dre Gallegos, Mary Bui, Alan Santos and colleagues, with an educational lesvia from [employer]. Review of Systems Const All systems reviewed & are unremarkable except as noted in HPI and below Eyes Reports no additional complaints ENT Reports no additional complaints Card Denies chest pain, Denies irregular heart rhythm and Denies leg edema Resp Reports as per HPI GI Denies no additional complaints Reports no additional complaints Musc Reports arthralgias (mild) Skin/Breast Reports system reviewed and no additional complaints, except as documented Neuro Reports no additional complaints Psych Reports no additional complaints Endo Reports no additional complaints Deven/Lymph Reports no additional complaints Aller/Immun Reports no additional complaints Physical exam (Primary Care) Vital Signs: Last Vital Signs Pulse 102 H 02/21/23 10:39 BP 122/66 02/21/23 10:39 Pulse Ox 98 02/21/23 10:39 Oxygen Delivery Method Room Air 02/21/23 10:39 BMI result Body Mass Index 30.4 Tobacco/Smoking Status: Tobacco use Status Tobacco use date assessed 02/21/23 02/21/23 10:42 Patient Tobacco Use Status Never used Tobacco 02/21/23 10:38 e-Cigarette/Vaping Use Never Used 02/21/23 10:38 Thrive Assessment: Date of Thrive Assessment Date Thrive assessed 11/17/22 02/21/23 10:38 Const Orientation/consciousness: patient oriented x3 [facility] General nose exam: Normal external nose present Face and sinus: Yes sinuses nontender and Yes face symmetric Eyes General: appearance normal, both eyes and all related structures Neck Other: Supple, no lymphadenopathy, thyroid gland nonpalpable Resp Auscultation: clear to auscultation bilaterally Cardio Other: S1-S2 present regular rate and rhythm GI Palpation (GI): Soft to palpation, nontender, no guarding and no masses Auscultation: normal bowel sounds Skin General skin exam: no rashes or lesions noted Neuro General: patient oriented x3, gait normal, tone normal, moves all extremities, Normal light touch and pain sensation, no focal motor deficits and CN's II-XI intact bilaterally Extrem Other: No gross bone deformity or joint swelling seen. , standard as on palpation over the medial aspect of left knee joint, with mild crepitus noted Results Reviewed Results Reviewed: Name: Kenn Melissa Age/Sex: 72/M : 1950 Unit#: [id number] Attend Dr: Molly Foster MD Re02/19/23 Status: DEP REF Location: [facility] Disch: SPEC : [id number] ECHO: 02/19/23 STATUS: COMP REQ : [id number] RECD: 02/19/[address]: Molly Foster MD COMP: 02/19/23-1238 ENTERED: 02/19/23-[address] [facility] [address]: ORDERED: Met Prof Fast, AST, ALT, Lipid Panel, Vitamin D 25-OH Test Result Flag Reference Site Sodium 144 135-145 mmol/L Potassium 4.1 3.3-5.1 mmol/L CL 108 96-108 mmol/L CO2 28 22-29 mmol/L Gap 12 12-20 BUN 26 H 9-16 mg/dL Creat 1.74 H 0.5-1.4 mg/dL EGFR 39 NOTE: For -[place] individuals, multiply the result by 1.210. Chronic Kidney Disease: Estimated GFR < 60 mL/min/1.73m2 Severe Kidney Disease: Estimated GFR < 15 mL/min/1.73m2 FBS 116 H 60-99 mg/dL A fasting glucose from 100-125 mg/dl is considered impaired (pre-diabetes). CA 9.5 8.4-10.2 mg/dL AST (GOT) 17 5-37 U/L ALT (GPT) 23 0-40 U/L Triglyceride 88 mg/dL Desirable Triglyceride: less than 150 mg/dL Borderline High Triglyceride 150-199 mg/dL High Triglyceride: 200-499 mg/dL Very High Triglyceride: greater than or equal to 5OO mg/dL Chol 214 mg/dL Desirable Cholesterol: less than 200 mg/dL Borderline High Cholesterol: 200-239 mg/dL High Cholesterol: greater than 239 mg/dL LDL Calculated 143 mg/dl Desirable LDL: less than 100 mg/dL Near Optimal/Above Optimal LDL: 110-129 mg/dL Borderline High LDL: 130-159 mg/dL High LDL: 160-189 mg/dL Very High LDL: greater than or equal to 190 mg/dL HDL 54 mg/dL Desirable HDL: greater than 40 mg/dL Note: This HDL assay may give artificially low results in patients with liver disease. Vit D 25-OH Tot 61.1 >30 ng/mL Health Based Reference Values* < 20 ng/mL Deficient 20-30 ng/mL Insufficient > 30 ng/mL Sufficient Assessment and Plan Assessment & Plan (1) Dyslipidemia: Code(s): E78.5 - Hyperlipidemia, unspecified Plan: LDL cholesterol still elevated, increased dosing frequency of rosuvastatin 5 mg to take take 1 tablet 3 times a week. Continue adhering to a healthy diet and getting regular exercise. Will repeat another fasting lipid panel in 6 months (2) Hypertension: Code(s): I10 - Essential (primary) hypertension Plan: Blood pressure at goal of less than 130/80. Continue with current medication. Reinforced importance of following a low sodium diet, getting regular exercise, and lowering stress levels. (3) CKD (chronic kidney disease): Code(s): N18.9 - Chronic kidney disease, unspecified Plan: Currently followed by Dr. Leung, who advised optimizing blood pressure control, started a month ago on Procardia ER 60 mg daily in addition to losartan 50 mg daily (4) Impaired fasting glucose: Code(s): R73.01 - Impaired fasting glucose Plan: Your fasting blood sugars elevated above 100 mg/dL. Impaired glucose metabolism O2 at risk for developing diabetes mellitus type 2, as well as heart attack and stroke later on. Lifestyle changes at just weight loss, healthy eating habits, and regular exercise are important, and can prevent the progression to diabetes Orders: Orders Alanine Aminotransferase 6 Months E78.5 - Hyperlipidemia, unspecified, I10 - Essential (primary) hypertension, N18.9 - Chronic kidney disease, unspecified, R73.01 - Impaired fasting glucose Aspartate Amino Transferase 6 Months E78.5 - Hyperlipidemia, unspecified, I10 - Essential (primary) hypertension, N18.9 - Chronic kidney disease, unspecified, R73.01 - Impaired fasting glucose Hemoglobin A1c 6 Months E78.5 - Hyperlipidemia, unspecified, I10 - Essential (primary) hypertension, N18.9 - Chronic kidney disease, unspecified, R73.01 - Impaired fasting glucose Lipid Panel 6 Months E78.5 - Hyperlipidemia, unspecified, I10 - Essential (primary) hypertension, N18.9 - Chronic kidney disease, unspecified, R73.01 - Impaired fasting glucose Medications: Changed From rosuvastatin 5 mg PO 2XW 90 days 26 tabs 1RF E78.5 - Hyperlipidemia, unspecified To rosuvastatin 5 mg PO 3XW 39 tabs 3RF 90 days E78.5 - Hyperlipidemia, unspecified Refilled colchicine (gout) 0.6 mg PO DAILY PRN 30 tabs 1RF GOUT Coding Level of Care Code Est Pt Level 4 (13642) Diagnoses Dyslipidemia E78.5 Hypertension I10 CKD (chronic kidney disease) N18.9 Impaired fasting glucose R73.01
[2023-02-21 10:39] VITALS: BP 122/66; PULSE 102; O2SAT 98; BMI 30.4
== END 2023-02-21 12:02 | disposition home or self-care (01) ==
LOC: HO.HMGC 10:27
PROVIDERS: PCP Internal Medicine; Visit Provider Internal Medicine
DX: E78.5 Hyperlipidemia, unspecified (principal); I12.9 Hypertensive chronic kidney disease with stage 1 through stage 4 chronic kidney disease, or unspecified chronic kidney disease; N18.9 Chronic kidney disease, unspecified; R73.01 Impaired fasting glucose
CPT/HCPCS: 99214

== ENCOUNTER → 2023-03-06 08:17 | Outpatient (BNVA) | payer OTHER, SELFPAY | PROVIDERS: PCP Internal Medicine; Visit Provider Internal Medicine Endocrinology, Diabetes & Metabolism ==

== ENCOUNTER 2023-03-06 09:08 | Outpatient (REF) | payer OTHER, SELFPAY ==
[2023-03-07 13:14] LABS: Calcium (PTHI) 9.6 mg/dL (8.6-10.3); PTHI 81 pg/mL (16-77)
== END 2023-03-06 09:09 | disposition home or self-care (01) ==
LOC: HO.10HDL 09:08
PROVIDERS: Visit Provider Internal Medicine Endocrinology, Diabetes & Metabolism
DX: M81.0 Age-related osteoporosis without current pathological fracture (principal)
CPT/HCPCS: 36415; 83970

== ENCOUNTER 2023-03-07 07:32 | Outpatient (REF) | payer OTHER, SELFPAY ==
[2023-03-15 20:43] LABS: N-Telopeptide 16 (see note); NTXCreaRU 63 mg/dL (20-320)
== END 2023-03-07 07:33 | disposition home or self-care (01) ==
LOC: HO.10HDLNP 07:32
PROVIDERS: Visit Provider Internal Medicine Endocrinology, Diabetes & Metabolism
DX: M81.0 Age-related osteoporosis without current pathological fracture (principal)
CPT/HCPCS: 82523

== ENCOUNTER → 2023-04-09 10:53 | Outpatient (BNVA) | payer OTHER, SELFPAY | PROVIDERS: PCP Internal Medicine; Visit Provider Physician Assistant | DX: M17.12 Unilateral primary osteoarthritis, left knee (principal) | CPT/HCPCS: 20610; J7323 ==

== ENCOUNTER → 2023-04-16 10:55 | Outpatient (BNVA) | payer OTHER, SELFPAY | PROVIDERS: PCP Internal Medicine; Visit Provider Physician Assistant | DX: M17.12 Unilateral primary osteoarthritis, left knee (principal) | CPT/HCPCS: 20610; J7323 ==

== ENCOUNTER → 2023-04-23 08:38 | Outpatient (BNVA) | payer OTHER, SELFPAY | PROVIDERS: PCP Internal Medicine; Visit Provider Physician Assistant | DX: M17.12 Unilateral primary osteoarthritis, left knee (principal) | CPT/HCPCS: 20610; J7323 ==

== ENCOUNTER 2023-06-13 08:29 | Outpatient (REF) | payer OTHER, SELFPAY ==
[2023-06-13 11:26] LABS: Appearance Urine Clear; Color Urine Yellow; Glucose Urine UA Negative (Negative); Leukocyte Esterase Urine Negative (Negative); Nitrite Urine Negative (Negative); Specific Gravity - Urine 1.015 (1.005-1.025); Urine Blood Negative (Negative); Urine Ketones Negative (Negative); Urine Protein Negative (Neg-Trace)
[2023-06-13 11:31] LABS: Bacteria Urine None Seen (None Seen); Hyaline Casts Urine 0-2 /LPF (0-2); RBC Urine 0-2 /HPF (0-2); Squamous Epithelial Cell Urine 0-2 /HPF (0-2); WBC Urine 0-5 /HPF (0-5)
[2023-06-13 12:15] LABS: Anion Gap 13 (12-20); Blood Urea Nitrogen 19 mg/dL (9-16); Calcium 9.5 mg/dL (8.4-10.2); Carbon Dioxide 25 mmol/L (22-29); Chloride 108 mmol/L (96-108); Estimated Glomerular Filt Rate 44; Potassium 4.5 mmol/L (3.3-5.1); Sodium 141 mmol/L (135-145)
[2023-06-13 12:29] LABS: Creatinine Urine 93.61 mg/dL; Microalbum/Creatinine Ratio Ur 10.6 ug/mg cr (<30); Total Protein Urine Random < 7 mg/dL (<12)
== END 2023-06-13 08:30 | disposition home or self-care (01) ==
LOC: HO.HMGCLDS 08:29
PROVIDERS: Visit Provider Internal Medicine Nephrology
DX: N18.32 Chronic kidney disease, stage 3b (principal); N25.0 Renal osteodystrophy
CPT/HCPCS: 36415; 80051; 81001; 82043; 82310; 82565; 84156; 84520

== ENCOUNTER 2023-10-08 08:05 | Outpatient (REF) | payer OTHER, SELFPAY ==
[2023-10-08 11:56] LABS: Estimated Average Glucose 117 mg/dL; Hemoglobin A1c % 5.7 % (<6.0)
[2023-10-08 12:16] LABS: Alanine Aminotransferase 24 U/L (0-40); Aspartate Amino Transferase 20 U/L (5-37); Cholesterol 189 mg/dL (<200); HDL Cholesterol 50 mg/dL (>40); LDL Cholesterol Calculated 120 mg/dL (<100); Triglycerides 99 mg/dL (<150)
== END 2023-10-08 08:06 | disposition home or self-care (01) ==
LOC: HO.HMGCLDS 08:05
PROVIDERS: PCP Internal Medicine; Visit Provider Internal Medicine
DX: I12.9 Hypertensive chronic kidney disease with stage 1 through stage 4 chronic kidney disease, or unspecified chronic kidney disease (principal); N18.9 Chronic kidney disease, unspecified; R73.01 Impaired fasting glucose; E78.5 Hyperlipidemia, unspecified
CPT/HCPCS: 36415; 80061; 83036; 84450; 84460

== ENCOUNTER 2023-10-11 10:35 | Outpatient (AMB) | payer OTHER, SELFPAY ==
--- NOTE | 2023-10-11 10:59 | MHC.PC.OV ---
Vital Signs 10/11/23 11:00 Height 5 ft 9 in Weight 197 lb 6 oz BMI 29.1 BP 136/90 H Blood Pressure Location Lt brachial Position Sitting Pulse 82 Pulse Source Pulse Oximeter Pulse Oximetry (%) 98 Oxygen Delivery Method Room Air Intake Visit Reasons: 6 month follow up Intake Note: Pt is here to follow up for his lab results Allergies lisinopril Allergy (Unknown, Verified 11/15/23 04:58) cough Sulfa (Sulfonamide Antibiotics) [SULFA(SULFONAMIDE ANTIBIOTICS)] Allergy (Unknown, Verified 11/15/23 04:58) UNK, unknown Medication List - Last Reconciled 11/15/23 by Molly Foster MD acetaminophen (Tylenol Extra Strength) 500 mg PO Q6H PRN aspirin (Adult Low Dose Aspirin) 81 mg PO DAILY calcium citrate-vitamin D3 315 mg-6.25 mcg (250 unit) (Citracal + Vitamin D Maximum) 2 tabs PO DAILY cetirizine 10 mg PO BEDTIME PRN colchicine 0.6 mg PO DAILY PRN losartan 50 mg PO DAILY kikmtroulave-eoigifrj-hyxyfs tabs risedronate 35 mg PO QWEEK rosuvastatin 5 mg PO DAILY 90 days Tobacco use date assessed: 10/11/23 Fall risk assessment: No Falls in past year Last assessed Fall Risk: 10/11/23 Dental Screening Dental Screen Date: 10/11/23 Did you have a dental visit in the last 12 months?: Yes Did you have a dental problem in the last 6 months where you did not have access to dental care?: No Was dental information given to patient?: Patient has dentist HPI 6 month follow up HPI Details 73-year-old male with hypercholesterolemia, and impaired fasting glucose, here today for follow-up. Currently on rosuvastatin 5 mg taken daily, has been compliant with his diet and exercises regularly. Had recent fasting labs done which showed hemoglobin A1c within normal limits as well as fasting lipid panel. He has hypertension currently on losartan 50 mg daily. Has been feeling well with no complaints at present time. [facility] Medical History (Updated 11/15/23 @ 05:05 by Molly Foster MD) Dyslipidemia (high LDL; low HDL) Impaired fasting glucose Left medial knee pain Pulmonary emphysema Non-toxic multinodular goiter BPH (benign prostatic hyperplasia) Ground glass opacity present on imaging of lung Pulmonary embolism CKD (chronic kidney disease) Pulmonary embolism Osteoporosis Hypertension Surgical History Hx of tonsillectomy History of prostate surgery History of appendectomy Family History Brother Coronary artery disease Sister Lung cancer Bone cancer Brain cancer Social History Household Members: Spouse Housing: House Do you presently have visiting nurse or other home services: No Alcohol intake: current Alcohol intake frequency: 0-2 drinks per day Alcohol type: wine Comment: heparin bolus Patient Tobacco Use Status: Never used Tobacco e-Cigarette/Vaping Use: Never Used Second Hand Smoke Exposure: No Advance Directives Date on File: 08/17/20 service: No Current occupational status: employed 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 Dre Gallegos, Mary Bui, Alan Santos and colleagues, with an educational lesvia from [employer]. Review of Systems Const All systems reviewed & are unremarkable except as noted in HPI and below ENT Reports no additional complaints Card Denies chest pain, Denies irregular heart rhythm and Denies leg edema Resp Reports as per HPI Musc Reports arthralgias (mild) Neuro Reports no additional complaints Psych Reports no additional complaints Aller/Immun Reports no additional complaints Physical exam (Primary Care) Vital Signs: Last Vital Signs Pulse 82 10/11/23 11:00 BP 136/90 H 10/11/23 11:00 Pulse Ox 98 10/11/23 11:00 Oxygen Delivery Method Room Air 10/11/23 11:00 BMI result Body Mass Index 29.1 Tobacco/Smoking Status: Tobacco use Status Tobacco use date assessed 10/11/23 10/11/23 11:05 Patient Tobacco Use Status Never used Tobacco 10/11/23 10:59 e-Cigarette/Vaping Use Never Used 10/11/23 10:59 Thrive Assessment: Date of Thrive Assessment Date Thrive assessed 11/17/22 10/11/23 10:59 Const Orientation/consciousness: patient oriented x3 Neck Other: Supple, no lymphadenopathy, thyroid gland nonpalpable Resp Auscultation: clear to auscultation bilaterally Cardio Other: S1-S2 present regular rate and rhythm GI Palpation (GI): Soft to palpation, nontender, no guarding and no masses Auscultation: normal bowel sounds Skin Other: Irregularly-shaped lesion on face Neuro General: patient oriented x3, gait normal, tone normal, moves all extremities, Normal light touch and pain sensation, no focal motor deficits and CN's II-XI intact bilaterally Extrem Other: No gross bone deformity or joint swelling seen. , standard as on palpation over the medial aspect of left knee joint, with mild crepitus noted Results Reviewed Results Reviewed: Laboratory Tests 10/08/23 08:15 Estimat Average Glucose 117 Hemoglobin A1c % 5.7 AST 20 ALT 24 Triglycerides 99 Cholesterol 189 LDL Cholesterol, Calc 120 H HDL Cholesterol 50 Assessment and Plan Assessment & Plan (1) Dyslipidemia: Code(s): E78.5 - Hyperlipidemia, unspecified Plan: Fasting lipids are within normal limits, continue with current dose of rosuvastatin 5 mg daily (2) Pigmented skin lesion of uncertain behavior of head: Code(s): L81.9 - Disorder of pigmentation, unspecified Plan: Dermatology consult ordered (3) Hypertension: Code(s): I10 - Essential (primary) hypertension Qualifiers: Hypertension type: primary hypertension Qualified Code(s): I10 - Essential (primary) hypertension Plan: Continue with losartan 50 mg daily. Reinforced importance of following a low sodium diet, getting regular exercise, and lowering stress levels. (4) Impaired fasting glucose: Code(s): R73.01 - Impaired fasting glucose Plan: Your fasting blood sugars elevated above 100 mg/dL. Impaired glucose metabolism O2 at risk for developing diabetes mellitus type 2, as well as heart attack and stroke later on. Lifestyle changes at just weight loss, healthy eating habits, and regular exercise are important, and can prevent the progression to diabetes Orders: Orders Lipid Panel 3 Months E78.5 - Hyperlipidemia, unspecified Alanine Aminotransferase 3 Months E78.5 - Hyperlipidemia, unspecified Aspartate Amino Transferase 3 Months E78.5 - Hyperlipidemia, unspecified Referrals Dermatology Referral L81.9 - Disorder of pigmentation, unspecified Medications: Changed From rosuvastatin 5 mg PO 3XW 90 days 39 tabs 3RF E78.5 - Hyperlipidemia, unspecified To rosuvastatin 5 mg PO DAILY 90 tabs 3RF 90 days E78.5 - Hyperlipidemia, unspecified Coding Level of Care Code Est Pt Level 3 (09432) Diagnoses Dyslipidemia E78.5 Pigmented skin lesion of uncertain behavior of head L81.9 Primary hypertension I10 Hypertension type: primary hypertension Impaired fasting glucose R73.01
[2023-10-11 11:00] VITALS: BP 136/90; PULSE 82; O2SAT 98; BMI 29.1
== END 2023-10-11 12:36 | disposition home or self-care (01) ==
PROVIDERS: PCP Internal Medicine; Visit Provider Internal Medicine
DX: E78.5 Hyperlipidemia, unspecified (principal); L81.9 Disorder of pigmentation, unspecified; I10 Essential (primary) hypertension; R73.01 Impaired fasting glucose
CPT/HCPCS: 99213

== ENCOUNTER 2023-11-14 15:47 | Outpatient (AMB) | payer OTHER, SELFPAY ==
[2023-11-14 15:50] VITALS: BP 136/80; PULSE 78; BMI 29.8
--- NOTE | 2023-11-14 15:50 | MHC.OFFVIS ---
Intake Vital Signs 11/14/23 15:50 Height 5 ft 9 in Weight 201 lb 15.095 oz BMI 29.8 BP 136/80 Blood Pressure Location Lt brachial Position Sitting Pulse 78 Pulse Source Pulse Oximeter Intake Visit Reasons: f/u osteoporosis Intake Note: Patient present today for Osteoporosis follow up visit. Personnel Quality Assurance Auditor Required: No Accompanied by: Self / Same As Patient Allergies lisinopril Allergy (Unknown, Verified 11/14/23 15:57) cough Sulfa (Sulfonamide Antibiotics) [SULFA(SULFONAMIDE ANTIBIOTICS)] Allergy (Unknown, Verified 11/14/23 15:57) UNK, unknown Medication List - Last Reconciled 11/14/23 by Dre Olugin MD acetaminophen (Tylenol Extra Strength) 500 mg PO Q6H PRN aspirin (Adult Low Dose Aspirin) 81 mg PO DAILY calcium citrate-vitamin D3 315 mg-6.25 mcg (250 unit) (Citracal + Vitamin D Maximum) 2 tabs PO DAILY cetirizine 10 mg PO BEDTIME PRN colchicine 0.6 mg PO DAILY PRN losartan 50 mg PO DAILY nwxsalzpexzo-czwdawtj-nxndgh tabs risedronate 35 mg PO QWEEK rosuvastatin 5 mg PO DAILY 90 days HPI HPI Comments History of Present Illness Details 73 yo male today for fup visit, for osteoporosis management- He is doing well, has no complaints today. He had a bilateral pulmonary embolism last year. He was on anticoagulation for 4 months was stopped. He is currently on Actonel 35 mg Q wkly after transitioning from Prolia after 5 years treatment Patient was diagnosed with osteoporosis 2010, he tried Alendronate for about 2-3 months, he had an adverse reaction, with muscle and bone pain, serum like syndrome and was stopped. He also has swallowing issues. Denies prior fractures, no GERD, Grandmother in mother side had a hip fracture, no other FH of fractures or osteoporosis, positive h/o of nephrolithiasis, he does not know if they are calcium related, no steroids used, no smoker, + daily 4-10 oz of wine, no anti seizures medications, no bone deformities. Negative History of head or neck irradiation. Bisphosphonates use: for 2-3 months 2010. Calcium intake: 1300 mg daily between diet and supplements Vitamin D: 1000 units daily. Herbal medications. no. 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 Prior: BMD 1.279 g/cm2. Baseline: BMD 1.187 g/cm2. LEFT FEMUR, NECK: Current: BMD 0.775 g/cm2, Z-score -1.2, T-score -2.3, osteopenia. Prior: BMD 0.737 g/cm2. Baseline: BMD 0.757 g/cm2. LEFT FEMUR, TOTAL: Current: BMD 0.826 g/cm2, Z-score -1.4, T-score -1.9, osteopenia, 1.7% increase from previous, 0.1% decrease from baseline (<5% change is not significant). Prior: BMD 0.812 g/cm2. Baseline: BMD 0.827 g/cm2. LEFT FOREARM RADIUS 33%: Current: BMD 0.914 g/cm2, Z-score 0.0, T-score -0.8, normal, 2.0% decrease from baseline (<5% change is not significant). Prior (Baseline for forearm): BMD 0.933 g/cm2. US thyroid 12/22/19 Right Thyroid Lobe: 4.6 x 1.6 x 1.5 cm, volume 5.8 mL. Previously 4.7 x 1.9 x 1.4 cm, volume 6.5 mL. Parenchyma: The gland echotexture is homogeneous. Thyroid vascularity is normal. Left Thyroid Lobe: 3.9 x 1.5 x 1.2 cm, volume 3.7 mL. Previously 4.4 x 1.3 x 1.4 cm, volume 4.2 mL. Parenchyma: The gland echotexture is homogeneous. Thyroid vascularity is normal. Isthmus: 0.5 cm in maximum AP dimension. Previously 0.4 cm. RIGHT THYROID LOBE: There are 3 nodules seen. 1. Location: Medial/mid. Size: 0.3 x 0.2 x 0.2 cm. Previous: 0.2 x 0.1 x 0.2 cm. Nodule characteristics: Hypoechoic and cystic, smooth margin, no calcification and no intranodular flow 2. Location: Lower pole. Size: 0.2 x 0.1 x 0.1 cm. Previous: 0.2 x 0.1 x 0.1 cm. Nodule characteristics: Hypoechoic and cystic, smooth margin, no calcification and no intranodular flow 3. Location: Inferior Size: 0.8 x 0.7 x 0.6 cm. Previous: 0.8 x 0.7 x 0.6 cm. Nodule characteristics: Isoechoic, smooth margin, no calcification and positive intranodular flow. It is uncertain whether this represents a true nodule or area of gland heterogeneity. ISTHMUS: No nodules. LEFT THYROID LOBE: There is 1 nodule seen. 1. Location: Superior/medial to the thyroid. Size: 0.7 x 0.5 x 0.6 cm. Previous: 0.7 x 0.6 x 0.6 cm. Nodule characteristics: Hyperechoic center and hypoechoic periphery, smooth margin, no calcification and no intranodular flow. This is exophytic to the superior medial left lobe. This appears unchanged. Differential would include lymph node and exophytic thyroid nodule. Laboratory Tests 07/12/20 08/07/20 08/27/20 08:28 18:31 08:15 Creatinine 1.63 H Calcium 9.1 9.0 9.1 D Alkaline Phosphata se 81 Albumin 4.0 N-Telopeptide X-li nked 25-OH Vitamin D To suzie 11/16/20 11/16/20 11/16/20 08:30 08:30 08:30 Creatinine 1.60 H Calcium 9.0 Alkaline Phosphata se Albumin N-Telopeptide X-li nked 16 25-OH Vitamin D To suzie 39.9 No fractures since last visit [facility] Medical History BPH (benign prostatic hyperplasia) CKD (chronic kidney disease) Dyslipidemia Dyslipidemia (high LDL; low HDL) Ground glass opacity present on imaging of lung Hypertension Impaired fasting glucose Left medial knee pain Non-toxic multinodular goiter Osteoporosis Pulmonary embolism Pulmonary embolism Pulmonary emphysema Surgical History History of appendectomy History of prostate surgery Hx of tonsillectomy Family History Brother Coronary artery disease Sister Lung cancer Bone cancer Brain cancer Social History Household Members: Spouse Housing: House Do you presently have visiting nurse or other home services: No Alcohol intake: current Alcohol intake frequency: 0-2 drinks per day Alcohol type: wine Comment: heparin bolus Patient Tobacco Use Status: Never used Tobacco e-Cigarette/Vaping Use: Never Used Second Hand Smoke Exposure: No Advance Directives Date on File: 08/17/20 service: No Current occupational status: employed 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 OLGUIN Code(s): M81.0 - Age-related osteoporosis without current pathological fracture Plan: This is 73-year-old white male with a history of osteoporosis and CKD stage 3 took a brief course of bisphosphonate with intolerance and now on Prolia for the past 5 years time. He is currently on Actonel 35 mg q.week. His DEXA bone density is out of osteoporotic range and he has not fracture. He has a persistently elevated PTH with normal 25 hydroxy vitamin-D. Differential diagnosis might include CKD with 1, 25 hydroxy vitamin-D deficiency or normocalcemic primary hyperparathyroidism Plan is to discontinue the Actonel. Will recheck urine NTX as well as repeat calcium, albumin, PTH, , 25 hydroxy vitamin-D in 3 months He will follow up with Nephrology to maximize CKD-BMD. If it is felt that he has persistent primary hyperparathyroidism, he may be a candidate for parathyroid exploration Orders: Orders Calcium 3 Months M81.0 - Age-related osteoporosis without current pathological fracture Albumin Level 3 Months M81.0 - Age-related osteoporosis without current pathological fracture Parathyroid Hormone Intact 3 Months M81.0 - Age-related osteoporosis without current pathological fracture Vitamin D 25-OH Total 3 Months M81.0 - Age-related osteoporosis without current pathological fracture Calcium, 24 Hr Ur Today M81.0 - Age-related osteoporosis without current pathological fracture Creatinine, 24 Hr Group Today M81.0 - Age-related osteoporosis without current pathological fracture Collagen Crosslinks NTX 3 Months M81.0 - Age-related osteoporosis without current pathological fracture Coding Level of Care Code Est Pt Level 3 (46702) Diagnoses Osteoporosis M81.0
== END 2023-11-14 16:11 | disposition home or self-care (01) ==
PROVIDERS: PCP Internal Medicine; Visit Provider Internal Medicine Endocrinology, Diabetes & Metabolism
DX: M81.0 Age-related osteoporosis without current pathological fracture (principal)
CPT/HCPCS: 99213

== ENCOUNTER → 2023-11-14 15:47 | Outpatient (BNVA) | payer OTHER, SELFPAY | PROVIDERS: PCP Internal Medicine; Visit Provider Internal Medicine Endocrinology, Diabetes & Metabolism ==

== ENCOUNTER 2023-12-14 08:26 | Outpatient (AMB) | payer OTHER, SELFPAY ==
--- NOTE | 2023-12-14 08:39 | A.OFFVIS_ITS ---
Intake Intake Visit Reasons: Left knee Durolane Gel Injection Allergies lisinopril Allergy (Unknown, Verified 12/14/23 08:39) cough Sulfa (Sulfonamide Antibiotics) [SULFA(SULFONAMIDE ANTIBIOTICS)] Allergy (Unknown, Verified 12/14/23 08:39) UNK, unknown PFSH Medical History (Updated 12/14/23 @ 08:40 by Ernestina Bond) Dyslipidemia (high LDL; low HDL) Impaired fasting glucose Left medial knee pain Pulmonary emphysema Non-toxic multinodular goiter BPH (benign prostatic hyperplasia) Ground glass opacity present on imaging of lung Pulmonary embolism CKD (chronic kidney disease) Pulmonary embolism Osteoporosis Hypertension Surgical History Hx of tonsillectomy History of prostate surgery History of appendectomy Family History Brother Coronary artery disease Sister Lung cancer Bone cancer Brain cancer Social History Household Members: Spouse Housing: House Do you presently have visiting nurse or other home services: No Alcohol intake: current Alcohol intake frequency: 0-2 drinks per day Alcohol type: wine Comment: heparin bolus Patient Tobacco Use Status: Never used Tobacco e-Cigarette/Vaping Use: Never Used Second Hand Smoke Exposure: No Advance Directives Date on File: 08/17/20 service: No Current occupational status: employed 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
--- NOTE | 2023-12-14 08:39 | A.OFFVIS_ITS ---
Intake Intake Visit Reasons: Left knee Durolane Gel Injection Intake Note: Kenn grover 73 year old male presents today for a left knee Durolane injection. Allergies lisinopril Allergy (Unknown, Verified 12/14/23 08:39) cough Sulfa (Sulfonamide Antibiotics) [SULFA(SULFONAMIDE ANTIBIOTICS)] Allergy (Unknown, Verified 12/14/23 08:39) UNK, unknown HPI Left knee Durolane Gel Injection HPI Details 73-year-old male who presents in the off ice today for a follow up of left knee pain. The patient was last seen in the office on 04/23/2023 by Ghanshyam Romero PA-C when he received her 3rd Euflexxa injection in a series of three. [facility] Medical History (Updated 12/14/23 @ 08:40 by Ernestina Bond) Dyslipidemia (high LDL; low HDL) Impaired fasting glucose Left medial knee pain Pulmonary emphysema Non-toxic multinodular goiter BPH (benign prostatic hyperplasia) Ground glass opacity present on imaging of lung Pulmonary embolism CKD (chronic kidney disease) Pulmonary embolism Osteoporosis Hypertension Surgical History Hx of tonsillectomy History of prostate surgery History of appendectomy Family History Brother Coronary artery disease Sister Lung cancer Bone cancer Brain cancer Social History Household Members: Spouse Housing: House Do you presently have visiting nurse or other home services: No Alcohol intake: current Alcohol intake frequency: 0-2 drinks per day Alcohol type: wine Comment: heparin bolus Patient Tobacco Use Status: Never used Tobacco e-Cigarette/Vaping Use: Never Used Second Hand Smoke Exposure: No Advance Directives Date on File: 08/17/20 service: No Current occupational status: employed 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 No ecchymosis, erythema, or joint effusion. No tenderness to palpation to the medial or lateral joint lines. Full knee extension and flexion. Crepitus felt with ROM. Negative Saloni's. NVI. Psych Mental Status: mental status grossly normal Office Procedures Joint Injection/Drain Joint Injection/Drain Primary Site: left knee Prep: site was prepped using aseptic technique, ethochloride spray was applied and injection warnings given Injected: in the joint (Durolane ) Approach Used: anterolateral Procedure: The patient tolerated the procedure well and there was some relief with the local anesthesia Coding - Large joint Procedure code (CPT) selection complete Assessment & Plan Assessment & Plan (1) Osteoarthritis of left knee: Code(s): M17.12 - Unilateral primary osteoarthritis, left knee Qualifiers: Osteoarthritis type: unspecified Qualified Code(s): M17.12 - Unilateral primary osteoarthritis, left knee Plan Mr. Melissa is a 73-year-old male who presents in the office today for a follow up of left knee pain. The patient was last seen in the office on 04/23/2023 by Ghanshyam Romero PA-C when he received her 3rd Euflexxa injection in a series of three. The patient was offered a Durolane Gel injection in the left knee. The patient was explained the risk, benefits, and alternatives to receiving this injection. After receiving consent for the injection, the patient had the procedure done while in office today. The patient tolerated the procedure well with no complications. Follow up will be PRN, or sooner if needed. Patient Instructions: Scribed by Ernestina Bond medical record librarian, for Rylee Moctezuma PA-C on 12/14/2023 at 8:30 am, EST. Coding Level of Care Code Procedure Only Diagnoses Osteoarthritis of left knee, unspecified osteoarthritis type M17.12 Osteoarthritis type: unspecified CPT Codes Coding - 47432 Large joint: 74647 - Large joint ([id number])
== END 2023-12-14 08:49 | disposition home or self-care (01) ==
PROVIDERS: PCP Internal Medicine; Visit Provider Physician Assistant
DX: M17.12 Unilateral primary osteoarthritis, left knee (principal)
CPT/HCPCS: 20610

== ENCOUNTER → 2023-12-14 08:26 | Outpatient (BNVA) | payer OTHER, SELFPAY | PROVIDERS: PCP Internal Medicine; Visit Provider Physician Assistant | DX: M17.12 Unilateral primary osteoarthritis, left knee (principal) | CPT/HCPCS: 20610; J7318 ==

== ENCOUNTER 2023-12-31 08:03 | Outpatient (AMB) | payer OTHER, SELFPAY ==
[2023-12-31 08:03] VITALS: BP 140/80; PULSE 98; O2SAT 98; BMI 29.7
--- NOTE | 2023-12-31 08:03 | AM.OFFWIN_ITS ---
Intake Vital Signs 12/31/23 08:03 Height 5 ft 9 in Weight 201 lb BMI 29.7 BP 140/80 H Blood Pressure Location Lt brachial Position Sitting Pulse 98 Pulse Source Pulse Oximeter Pulse Oximetry (%) 98 Intake Visit Reasons: EP LFT arm tingling BP 157/100 Intake Note: pt is here for concern of left arm tingling from dec due to shingles shotalso states at home reading is 157/100. denies chest pain Patient Tobacco Use Status: Never used Tobacco Allergies lisinopril Allergy (Unknown, Verified 12/31/23 08:13) cough Sulfa (Sulfonamide Antibiotics) [SULFA(SULFONAMIDE ANTIBIOTICS)] Allergy (Unknown, Verified 12/31/23 08:13) UNK, unknown Do you need a note to return to daycare/school/sports/work: No HPI HPI Comments History of Present Illness Details Kenn is a very pleasant 73-year-old presents to the walk-in clinic today sick visit. Reports blood pressure readings over the weekend size 140s over 100s. Reports that he has been checking his blood pressure multiple times a day and each time it was higher than previous Has been taking his medications as prescribed He denies chest pain, shortness of breath, dizziness, weakness, blurry vision, syncope, headache Taking his blood pressure medication as prescribed. Has follow-up with his primary care doctor in 2 weeks and also has a follow-up with his kidney doctor who manages his blood pressure in 3 weeks COUNTS INCLUDE 234 BEDS AT THE [facility] Medical History (Updated 12/16/23 @ 16:37 by Molly Foster MD) History of pulmonary embolism Dyslipidemia (high LDL; low HDL) Impaired fasting glucose Left medial knee pain Pulmonary emphysema Non-toxic multinodular goiter BPH (benign prostatic hyperplasia) Ground glass opacity present on imaging of lung Pulmonary embolism CKD (chronic kidney disease) Osteoporosis Hypertension Surgical History Hx of tonsillectomy History of prostate surgery History of appendectomy Family History Brother Coronary artery disease Sister Lung cancer Bone cancer Brain cancer Social History Household Members: Spouse Housing: House Do you presently have visiting nurse or other home services: No Alcohol intake: current Alcohol intake frequency: 0-2 drinks per day Alcohol type: wine Comment: heparin bolus Patient Tobacco Use Status: Never used Tobacco e-Cigarette/Vaping Use: Never Used Second Hand Smoke Exposure: No Advance Directives Date on File: 08/17/20 service: No Current occupational status: employed 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 Answers questions appropriately. Fully engaged in examination. Skin: warm, dry, intact HEENT: Normocephalic. Hearing intact. Cardiac: External chest normal in appearance. Respiratory: No cough, audible wheezing or stridor. Abdomen: without gross distension. MS: No obvious swelling or deformities. Neurological: Oriented to person, place, time and situation. Thought process intact. No gait abnormalities appreciated. Psychiatric: Appropriate mood and affect. Good judgment and insight. Const Orientation/consciousness: patient oriented x3 Cardio Jugular venous distension: no JVD Rate: regular rate Rhythm: regular rhythm Neuro General: patient oriented x3, moves all extremities and CN's II-XI intact bilaterally Cognition (Neuro): normal cognition Speech: Abnormal speech present Gait exam (Neuro): Normal gait present Motor exam (neuro): 5/5 motor strength present throughout and Pronator motor function not present Assessment & Plan Assessment & Plan (1) Hypertension: Code(s): I10 - Essential (primary) hypertension Qualifiers: Hypertension type: primary hypertension Qualified Code(s): I10 - Essential (primary) hypertension Plan Patient evaluated in the walk-in clinic today for reports of elevated blood pressure readings at home, patient asymptomatic Blood pressure being in clinic today 140/80, vital signs stable. Patient reassured. Advised patient to check his blood pressure once daily, to not repeatedly check as it will result in elevated readings Continue with meds as prescribed Follow-up with PCP and Dr. Leung as planned Seek treatment in the ER for chest pain, palpitations, shortness of breath, dizziness, weakness, sudden severe headache or any concerns Follow-up in the walk-in or with PCP as needed Coding Level of Care Code Est Pt Level 3 (80929) Diagnoses Primary hypertension I10 Hypertension type: primary hypertension
== END 2023-12-31 09:33 | disposition home or self-care (01) ==
PROVIDERS: PCP Internal Medicine; Visit Provider Registered Nurse Emergency
DX: I10 Essential (primary) hypertension (principal)
CPT/HCPCS: 99213

== ENCOUNTER 2024-01-14 06:30 | Outpatient (REF) | payer OTHER, SELFPAY ==
[2024-01-14 11:18] LABS: MANUAL DIFF FLAG NO
[2024-01-14 11:27] LABS: Basophils Absolute Auto 0.1 X10*3/uL (0.0-0.2); Basophils Percent Auto 0.9 % (0-2); Eosinophils Absolute Auto 0.2 X10*3/uL (0.0-0.4); Hematocrit 41.3 % (42.0-52.0); Hemoglobin 14.1 g/dl (14.0-18.0); Imm Gran Abs Auto 0.01 X10*3/uL (0.00-0.03); Imm Gran Pct Auto 0.1 % (0.0-0.4); Lymphocytes Absolute Auto 2.4 X10*3/uL (1.2-4.9); Lymphocytes Percent Auto 30.9 % (20-40); Mean Corpuscular HGB Conc 34.1 g/dl (31.0-36.0); Mean Corpuscular Hemoglobin 33.3 pg (27.0-33.0); Mean Corpuscular Volume 97.4 fL (80.0-98.0); Mean Platelet Volume 11.4 fL (9.4-12.4); Monocytes Absolute Auto 0.8 X10*3/uL (0.1-1.2); Monocytes Percent Auto 9.8 % (2-11); Neutrophils Absolute Auto 4.2 x10*3/uL (2.0-8.3); Neutrophils Percent Auto 55.3 % (45-73); Platelet Count 235 X10*3/uL (160-400); Red Blood Count 4.24 X10*6/uL (4.60-5.80); Red Cell Distribution Width 12.1 % (11.0-16.0); White Blood Count 7.6 X10*3/uL (4.8-10.8)
[2024-01-14 12:13] LABS: Appearance Urine Clear; Color Urine Yellow; Glucose Urine UA Negative (Negative); Leukocyte Esterase Urine Negative (Negative); Nitrite Urine Negative (Negative); PH 6.5 (5.0-9.0); Specific Gravity - Urine <= 1.005 (1.005-1.025); Urine Blood Negative (Negative); Urine Ketones Negative (Negative); Urine Protein Negative (Neg-Trace)
[2024-01-14 12:17] LABS: Bacteria Urine None Seen (None Seen); Hyaline Casts Urine 0-2 /LPF (0-2); RBC Urine 0-2 /HPF (0-2); Squamous Epithelial Cell Urine 0-2 /HPF (0-2); WBC Urine 0-5 /HPF (0-5)
[2024-01-14 12:38] LABS: Alanine Aminotransferase 30 U/L (0-40); Aspartate Amino Transferase 26 U/L (5-37); Cholesterol 185 mg/dL (<200); HDL Cholesterol 48 mg/dL (>40); LDL Cholesterol Calculated 107 mg/dL (<100); Triglycerides 150 mg/dL (<150)
[2024-01-14 13:25] LABS: Parathyroid Hormone Intact 106.8 pg/mL (8.7-77.1)
[2024-01-14 13:34] LABS: Creatinine Urine 36.32 mg/dL; Total Protein Urine Random < 7 mg/dL (<12)
[2024-01-14 14:02] LABS: Albumin Level 4.4 g/dL (3.5-5.0); Anion Gap 14 (12-20); Blood Urea Nitrogen 24 mg/dL (9-16); Calcium 9.6 mg/dL (8.4-10.2); Carbon Dioxide 25 mmol/L (22-29); Chloride 107 mmol/L (96-108); Estimated Glomerular Filt Rate 42; Magnesium 2.1 mg/dL (1.6-2.6); Phosphorus 3.2 mg/dL (2.7-4.5); Potassium 4.2 mmol/L (3.3-5.1); Sodium 142 mmol/L (135-145); Vitamin D 25-OH Total 82.7 ng/mL (>30)
== END 2024-01-14 06:31 | disposition home or self-care (01) ==
LOC: HO.HMGCLDS 06:30
PROVIDERS: PCP Internal Medicine; Referring Provider Internal Medicine Nephrology; Visit Provider Internal Medicine
DX: E78.5 Hyperlipidemia, unspecified (principal); N18.32 Chronic kidney disease, stage 3b; N25.0 Renal osteodystrophy; R03.0 Elevated blood-pressure reading, without diagnosis of hypertension; R82.90 Unspecified abnormal findings in urine
CPT/HCPCS: 36415; 80051; 80061; 81001; 82040; 82043; 82306; 82310; 82565; 82570; 83735; 83970; 84100; 84156; 84450; 84460; 84520; 85025; 87086

== ENCOUNTER 2024-01-25 09:22 | Outpatient (AMB) | payer OTHER, SELFPAY ==
--- NOTE | 2024-01-25 09:27 | MHC.PC.OV ---
Vital Signs 01/25/24 09:38 Height 5 ft 9 in Weight 204 lb BMI 30.1 BP 130/90 H Blood Pressure Location Lt brachial Position Sitting Pulse 84 Pulse Source Pulse Oximeter Pulse Oximetry (%) 98 Oxygen Delivery Method Room Air Intake Visit Reasons: Annual PE Intake Note: Pt is here today for his PE: bone density scan 08/31/22:Colonoscopy 12/15/15 Allergies lisinopril Allergy (Unknown, Verified 01/25/24 10:06) cough Sulfa (Sulfonamide Antibiotics) [SULFA(SULFONAMIDE ANTIBIOTICS)] Allergy (Unknown, Verified 01/25/24 10:06) UNK, unknown Medication List - Last Reconciled 01/25/24 by Molly Foster MD acetaminophen (Tylenol Extra Strength) 500 mg PO Q6H PRN aspirin (Adult Low Dose Aspirin) 81 mg PO DAILY calcium citrate-vitamin D3 315 mg-6.25 mcg (250 unit) (Citracal + Vitamin D Maximum) 2 tabs PO DAILY cetirizine 10 mg PO BEDTIME PRN colchicine 0.6 mg PO DAILY PRN losartan 50 mg PO DAILY fjxttmpirmub-rjicolez-kdeait tabs rosuvastatin 5 mg PO DAILY 90 days Tobacco use date assessed: 01/25/24 Fall risk assessment: No Falls in past year Last assessed Fall Risk: 01/25/24 Dental Screening Dental Screen Date: 01/25/24 Did you have a dental visit in the last 12 months?: Yes Did you have a dental problem in the last 6 months where you did not have access to dental care?: Yes Was dental information given to patient?: Patient has dentist HPI Annual PE HPI Details 73-year-old male with hypertension chronic kidney disease, hyperlipidemia, osteoporosis, here today for physical exam. He is up-to-date with his screening colonoscopy done [place] [address] Martin, to be repeated again in 2025. Currently sees Dr[address] Jones for history of osteoporosis, with last bone density can done in 2 improvement in bone density, currently only taking calcium and vitamin-D 3 supplement. Up-to-date with his vaccines including COVID booster, pneumonia vaccine, shingles vaccine. [facility] Medical History (Updated 01/25/24 @ 10:38 by Molly Foster MD) Osteopenia of multiple sites History of pulmonary embolism Dyslipidemia (high LDL; low HDL) Impaired fasting glucose Left medial knee pain Pulmonary emphysema Non-toxic multinodular goiter BPH (benign prostatic hyperplasia) Ground glass opacity present on imaging of lung Pulmonary embolism CKD (chronic kidney disease) Osteoporosis Hypertension Surgical History Hx of tonsillectomy History of prostate surgery History of appendectomy Family History Brother Coronary artery disease Sister Lung cancer Bone cancer Brain cancer Social History Household Members: Spouse Housing: House Do you presently have visiting nurse or other home services: No Alcohol intake: current Alcohol intake frequency: 0-2 drinks per day Alcohol type: wine 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 1. Little interest or pleasure in doing things: not at all 2. Feeling down, depressed, or hopeless: not at all 3. Trouble falling or staying asleep, or sleeping too much: not at all 4. Feeling tired or having little energy: not at all 5. Poor appetite or overeating: not at all 6. Feeling bad about yourself - or that you are a failure or have let yourself or your family down: not at all 7. Trouble concentrating on things, such as reading the newspaper or watching television: not at all 8. Moving or speaking so slowly that other people could have noticed. Or the opposite - being so fidgety or restless that you have been moving around a lot more than usual: not at all 9. Thoughts that you would be better off or of hurting yourself in some way: not at all Total score: 0 Depression Screening Interpretation: Negative Depression Screening Done: Yes 63016 - PHQ-9 Billing: Yes Source: Developed by Drs. Dre Gallegos, MaryAlan Childs and colleagues, with an educational lesvia from [employer]. Thrive Questionnaire Date Thrive assessed: 01/25/24 I am a: Patient What is your living situation today?: I have a steady place to live Within the past 12 months, did the food you bought not last and you didn't have the money to get more?: Never true Within the past 12 months, did you worry whether your food would run out before you got money to buy more?: Never true Do you have trouble paying for medicines?: No Do you have trouble getting transportation to medical appointments?: No Do you have trouble paying your heating and electricity bill?: No Do you have trouble taking care of your child, family member or friend?: No Do you have trouble with day-to-day activities such as bathing, preparing meals, shopping, managing finances, etc.?: No Are you currently unemployed and looking for a job?: No Are you interested in more education?: No THRIVE Score: 0 AUDIT C Alcohol Use Questionnaire (AUDIT-C) 1. How often do you have a drink containing alcohol?: 4 or more times a week 2. How many drinks containing alcohol do you have on a typical day when you are drinking?: 1 or 2 3. How often do you have six or more drinks on one occasion?: Never Total Score: 4 Score Reviewed/Action Taken: Yes (Counseled regarding increased alcohol i consumption) AMANDA-7 AMB Questionnaire AMANDA-7 Date AMANDA - 7 assessed: 01/25/24 Feeling nervous, anxious, or on edge: 0 = Not at all Not being able to stop or control worryin = Not at all Worrying too much about different things: 0 = Not at all Trouble relaxin = Not at all Being so restless that it is hard to sit still: 0 = Not at all Becoming easily annoyed or irritable: 0 = Not at all Feeling afraid as if something awful might happen: 0 = Not at all Total AMANDA-7 score (0-4 normal; 5-9 mild; 10-14 moderate; 15-21 severe): 0 Source: Developed by Mary Dorsey Kurt Kroenke and colleagues, with an educational lesvia from [employer]. AMANDA-7 Assessment Billing AMANDA-7 Assessment Tool: AMANDA-7 Assessment 90137 Review of Systems Const Reports no additional complaints Eyes Denies change in vision ENT Reports no additional complaints Card Denies chest pain, Denies irregular heart rhythm and Denies leg edema Resp Reports as per HPI GI Reports no additional complaints Reports no additional complaints Musc Reports arthralgias (mild) Skin/Breast Denies rash Neuro Reports no additional complaints Psych Reports no additional complaints Endo Reports no additional complaints Deven/Lymph Reports no additional complaints Aller/Immun Reports no additional complaints Physical exam (Primary Care) Vital Signs: Last Vital Signs Pulse 84 01/25/24 09:38 BP 130/90 H 01/25/24 09:38 Pulse Ox 98 01/25/24 09:38 Oxygen Delivery Method Room Air 01/25/24 09:38 BMI result Body Mass Index 30.1 Tobacco/Smoking Status: Tobacco use Status Tobacco use date assessed 01/25/24 01/25/24 09:41 Patient Tobacco Use Status Never used Tobacco 01/25/24 09:28 e-Cigarette/Vaping Use Never Used 01/25/24 09:28 PHQ-9: PHQ-9 Score PHQ-9: Total score 0 01/25/24 10:06 Depression Screening Interpretation: Negative Thrive Assessment: Date of Thrive Assessment Date Thrive assessed 01/25/24 01/25/24 09:43 Const Orientation/consciousness: patient oriented x3 Neck Other: Supple, no lymphadenopathy, thyroid gland nonpalpable Resp Auscultation: clear to auscultation bilaterally Cardio Other: S1-S2 present regular rate and rhythm GI Palpation (GI): Soft to palpation, nontender, no guarding and no masses Auscultation: normal bowel sounds Neuro General: patient oriented x3, gait normal, tone normal, moves all extremities, Normal light touch and pain sensation, no focal motor deficits and CN's II-XI intact bilaterally Extrem Other: No gross bone deformity or joint swelling seen. , standard as on palpation over the medial aspect of left knee joint, with mild crepitus noted Results Reviewed Results Reviewed: Name: Kenn Melissa Age/Sex: 73/M : 1950 Unit#: [id number] Attend Dr: Molly Foster MD Re01/14/24 Status: DEP REF Location: [facility] Disch: SPEC : [id number] ECHO: 01/14/24 STATUS: COMP REQ : [id number] RECD: 01/14/[address]: Arun Leung MD COMP: 01/14/24 ENTERED: 01/14/[address]: Molly Foster MD ORDERED: CBC Auto Diff Test Result Flag Reference WBC 7.6 4.8-10.8 X10*3/uL RBC 4.24 L 4.60-5.80 X10*6/uL HGB 14.1 14.0-18.0 g/dl HCT 41.3 L 42.0-52.0 % MCV 97.4 80.0-98.0 fL MCH 33.3 H 27.0-33.0 pg MCHC 34.1 31.0-36.0 g/dl RDW 12.1 11.0-16.0 % PLT 235 160-400 X10*3/uL MPV 11.4 9.4-12.4 fL Neut Pct Auto 55.3 45-73 % ImGran Pct Auto 0.1 0.0-0.4 % Lymp Pct Auto 30.9 20-40 % [place] Pct Auto 9.8 2-11 % Eos Pct Auto 3.0 0-4 % Baso Pct Auto 0.9 0-2 % NRBC Pct Auto 0.0 0.0-0.2 /100WBC ANC Neut Abs # 4.2 2.0-8.3 x10*3/uL ImGran Abs Auto 0.01 0.00-0.03 X10*3/uL Lymph Abs Auto 2.4 1.2-4.9 X10*3/uL [place] Abs Auto 0.8 0.1-1.2 X10*3/uL Eos Abs Auto 0.2 0.0-0.4 X10*3/uL Baso Abs Auto 0.1 0.0-0.2 X10*3/uL NRBC Abs Auto 0.000 0.0-0.012 X10*3/uL juliann: Kenn Melissa Age/Sex: 73/M : 1950 Unit#: [id number] Attend Dr: Molly Foster MD Re01/14/24 Status: DEP REF Location: [facility] Disch: SPEC : [id number] ECHO: 01/14/24 STATUS: COMP REQ : [id number] RECD: 01/14/24-[address]: Arun Leung MD COMP: 01/14/24 ENTERED: 01/14/[address]: Molly Foster MD ORDERED: Lytes, BUN, Creat, CA, Phos, MG, Alb, Vitamin D 25-OH Test Result Flag Reference Sodium 142 135-145 mmol/L Potassium 4.2 3.3-5.1 mmol/L CL 107 96-108 mmol/L CO2 25 22-29 mmol/L Gap 14 12-20 BUN 24 H 9-16 mg/dL Creat 1.64 H 0.5-1.4 mg/dL EGFR 42 NOTE: For -Ind[place] individuals, multiply the result by 1.210. Chronic Kidney Disease: Estimated GFR < 60 mL/min/1.73m2 Severe Kidney Disease: Estimated GFR < 15 mL/min/1.73m2 CA 9.6 8.4-10.2 mg/dL Phosphorus 3.2 2.7-4.5 mg/dL Magnesium 2.1 1.6-2.6 mg/dL Alb 4.4 3.5-5.0 g/dL Vit D 25-OH Tot 82.7 >30 ng/mL Health Based Reference Values* < 20 ng/mL Deficient 20-30 ng/mL Insufficient > 30 ng/mL Sufficient Assessment and Plan Assessment & Plan (1) Annual visit for general adult medical examination with abnormal findings: Code(s): Z00.01 - Encounter for general adult medical examination with abnormal findings Plan: Reviewed recent fasting lab results with patient. Continue regular dental visit every 6 months and regular eye exams, at least every 2 years. Take adequate calcium in diet and vitamin-D 3 at 2000 IU per cap once a day, in addition to weight-bearing exercises to help maintain good muscle tone and weight control. Instructed to do self-testicular exam check for any mass. Up-to-date with screening colonoscopy and up-to-date with all his vaccines (2) Dyslipidemia (high LDL; low HDL): Code(s): E78.5 - Hyperlipidemia, unspecified Plan: Continue with rosuvastatin 5 mg daily fasting lipid panel (3) Osteopenia of multiple sites: Code(s): M85.89 - Other specified disorders of bone density and structure, multiple sites Plan: Followed by Dr. Jones, has been on Prolia and risedronate, now only taking calcium and vitamin-D 3 supplements, advised to do regular weight-bearing exercise (4) CKD (chronic kidney disease): Comment: Followed by Dr. Leung Code(s): N18.9 - Chronic kidney disease, unspecified Qualifiers: Chronic kidney disease stage: stage 3 (moderate) Chronic kidney disease stage 3 subtype: stage 3a (GFR 45-59) Qualified Code(s): N18.31 - Chronic kidney disease, stage 3a Plan: Followed by Dr. Leung reminded to avoid all NSAID continue losartan 50 mg daily (5) Hypertension: Code(s): I10 - Essential (primary) hypertension Qualifiers: Hypertension type: primary hypertension Qualified Code(s): I10 - Essential (primary) hypertension Plan: Blood pressure at goal of less than 130/80. Continue with current medication. Reinforced importance of following a low sodium diet, getting regular exercise, and lowering stress levels. (6) BPH (benign prostatic hyperplasia): Code(s): N40.0 - Benign prostatic hyperplasia without lower urinary tract symptoms Plan: Will check PSA. Patient currently asymptomatic Orders: Orders Aspartate Amino Transferase 06/22/24 E78.5 - Hyperlipidemia, unspecified, N40.0 - Benign prostatic hyperplasia without lower urinary tract symptoms Lipid Panel 06/22/24 E78.5 - Hyperlipidemia, unspecified, N40.0 - Benign prostatic hyperplasia without lower urinary tract symptoms PSA,Total (Free>4and<10) 06/22/24 E78.5 - Hyperlipidemia, unspecified, N40.0 - Benign prostatic hyperplasia without lower urinary tract symptoms Alanine Aminotransferase 06/22/24 E78.5 - Hyperlipidemia, unspecified, N40.0 - Benign prostatic hyperplasia without lower urinary tract symptoms Coding Level of Care Code Est Pt Prev Care >65y(33819) Diagnoses Annual visit for general adult medical examination with abnormal findings Z00.01 Dyslipidemia (high LDL; low HDL) E78.5 Osteopenia of multiple sites M85.89 Stage 3a chronic kidney disease N18.31 Chronic kidney disease stage: stage 3 (moderate) Chronic kidney disease stage 3 subtype: stage 3a (GFR 45-59) Primary hypertension I10 Hypertension type: primary hypertension BPH (benign prostatic hyperplasia) N40.0 Additional Codes AMANDA-7 Assessment Billing - AMANDA-7 Assessment Tool: AMANDA-7 Assessment [id number] ([id number])
[2024-01-25 09:38] VITALS: BP 130/90; PULSE 84; O2SAT 98; BMI 30.1
== END 2024-01-25 10:43 | disposition home or self-care (01) ==
PROVIDERS: PCP Internal Medicine; Visit Provider Internal Medicine
DX: Z00.01 Encounter for general adult medical examination with abnormal findings (principal); I12.9 Hypertensive chronic kidney disease with stage 1 through stage 4 chronic kidney disease, or unspecified chronic kidney disease; N18.31 Chronic kidney disease, stage 3a; E78.5 Hyperlipidemia, unspecified; M85.89 Other specified disorders of bone density and structure, multiple sites; N40.0 Benign prostatic hyperplasia without lower urinary tract symptoms
CPT/HCPCS: 99397

== ENCOUNTER 2024-03-03 08:04 | Outpatient (REF) | payer OTHER, SELFPAY ==
[2024-03-03 10:56] LABS: Parathyroid Hormone Intact 151.4 pg/mL (8.7-77.1)
[2024-03-03 11:04] LABS: Albumin Level 4.3 g/dL (3.5-5.0); Calcium 9.5 mg/dL (8.4-10.2)
[2024-03-03 11:18] LABS: Creatinine, mg/dL 93.69
[2024-03-03 11:25] LABS: Vitamin D 25-OH Total 53.8 ng/mL (>30)
[2024-03-03 11:54] LABS: Creatinine, 24Hr Urine 1.4 G/Day (1.0-2.0); Total Volume 24 Hour Urine 1500 mL
[2024-03-04 19:53] LABS: Calcium, 24 Hr Urine 68 mg/24 h; Calcium/Creatinine Ratio 52 mg/g creat (30-210); Creatinine 24Hr Urine 1.31 g/24 h (0.50-2.15)
== END 2024-03-03 08:05 | disposition home or self-care (01) ==
LOC: HO.HMGCLDS 08:04
PROVIDERS: PCP Internal Medicine; Visit Provider Internal Medicine Endocrinology, Diabetes & Metabolism
DX: M81.0 Age-related osteoporosis without current pathological fracture (principal)
CPT/HCPCS: 36415; 82040; 82306; 82310; 82340; 82570; 83970

== ENCOUNTER 2024-03-07 07:48 | Outpatient (REF) | payer OTHER, SELFPAY ==
[2024-03-15 00:38] LABS: N-Telopeptide 32 (see note); NTXCreaRU 77 mg/dL (20-320)
== END 2024-03-07 07:49 | disposition home or self-care (01) ==
LOC: HO.HMGCLDS 07:48
PROVIDERS: PCP Internal Medicine; Visit Provider Internal Medicine Endocrinology, Diabetes & Metabolism
DX: M81.0 Age-related osteoporosis without current pathological fracture (principal)
CPT/HCPCS: 82523

== ENCOUNTER 2024-03-13 07:52 | Outpatient (AMB) | payer OTHER, SELFPAY ==
[2024-03-13 07:53] VITALS: BP 144/86; PULSE 63; BMI 30.5
--- NOTE | 2024-03-13 07:53 | MHC.OFFVIS ---
Vital Signs 03/13/24 07:53 Height 5 ft 9 in Weight 206 lb 9.17 oz BMI 30.5 BP 144/86 H Blood Pressure Location Lt brachial Position Sitting Pulse 63 Pulse Source Pulse Oximeter Intake Visit Reasons: f/u osteoporosis/hyperparathyroidism-lvm Intake Note: Patient present today for Osteoporosis and Hyperparathyroidism follow up visit. Receptionist Clerk Required: No Accompanied by: Self / Same As Patient Allergies lisinopril Allergy (Unknown, Verified 03/13/24 07:57) cough Sulfa (Sulfonamide Antibiotics) [SULFA(SULFONAMIDE ANTIBIOTICS)] Allergy (Unknown, Verified 03/13/24 07:57) UNK, unknown Medication List - Last Reconciled 03/13/24 by Dre Olguin MD acetaminophen (Tylenol Extra Strength) 500 mg PO Q6H PRN aspirin (Adult Low Dose Aspirin) 81 mg PO DAILY calcium citrate-vitamin D3 315 mg-6.25 mcg (250 unit) (Citracal + Vitamin D Maximum) 2 tabs PO DAILY cetirizine 10 mg PO BEDTIME PRN colchicine 0.6 mg PO DAILY PRN losartan 50 mg PO DAILY oipclfqwyqon-yydodcfc-fskids tabs rosuvastatin 5 mg PO DAILY 90 days HPI Comments Details: 73 yo male today for fup visit, for osteoporosis management- He is doing well, has no complaints today. He had a bilateral pulmonary embolism last year. He was on anticoagulation for 4 months was stopped. He is currently on Actonel 35 mg Q wkly after transitioning from Prolia after 5 years treatment Patient was diagnosed with osteoporosis 2010, he tried Alendronate for about 2-3 months, he had an adverse reaction, with muscle and bone pain, serum like syndrome and was stopped. He also has swallowing issues. Denies prior fractures, no GERD, Grandmother in mother side had a hip fracture, no other FH of fractures or osteoporosis, positive h/o of nephrolithiasis, he does not know if they are calcium related, no steroids used, no smoker, + daily 4-10 oz of wine, no anti seizures medications, no bone deformities. Negative History of head or neck irradiation. Bisphosphonates use: for 2-3 months 2010. Calcium intake: 1300 mg daily between diet and supplements Vitamin D: 1000 units daily. Herbal medications. no. 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 Prior: BMD 1.279 g/cm2. Baseline: BMD 1.187 g/cm2. LEFT FEMUR, NECK: Current: BMD 0.775 g/cm2, Z-score -1.2, T-score -2.3, osteopenia. Prior: BMD 0.737 g/cm2. Baseline: BMD 0.757 g/cm2. LEFT FEMUR, TOTAL: Current: BMD 0.826 g/cm2, Z-score -1.4, T-score -1.9, osteopenia, 1.7% increase from previous, 0.1% decrease from baseline (<5% change is not significant). Prior: BMD 0.812 g/cm2. Baseline: BMD 0.827 g/cm2. LEFT FOREARM RADIUS 33%: Current: BMD 0.914 g/cm2, Z-score 0.0, T-score -0.8, normal, 2.0% decrease from baseline (<5% change is not significant). Prior (Baseline for forearm): BMD 0.933 g/cm2. US thyroid 12/22/19 Right Thyroid Lobe: 4.6 x 1.6 x 1.5 cm, volume 5.8 mL. Previously 4.7 x 1.9 x 1.4 cm, volume 6.5 mL. Parenchyma: The gland echotexture is homogeneous. Thyroid vascularity is normal. Left Thyroid Lobe: 3.9 x 1.5 x 1.2 cm, volume 3.7 mL. Previously 4.4 x 1.3 x 1.4 cm, volume 4.2 mL. Parenchyma: The gland echotexture is homogeneous. Thyroid vascularity is normal. Isthmus: 0.5 cm in maximum AP dimension. Previously 0.4 cm. RIGHT THYROID LOBE: There are 3 nodules seen. 1. Location: Medial/mid. Size: 0.3 x 0.2 x 0.2 cm. Previous: 0.2 x 0.1 x 0.2 cm. Nodule characteristics: Hypoechoic and cystic, smooth margin, no calcification and no intranodular flow 2. Location: Lower pole. Size: 0.2 x 0.1 x 0.1 cm. Previous: 0.2 x 0.1 x 0.1 cm. Nodule characteristics: Hypoechoic and cystic, smooth margin, no calcification and no intranodular flow 3. Location: Inferior Size: 0.8 x 0.7 x 0.6 cm. Previous: 0.8 x 0.7 x 0.6 cm. Nodule characteristics: Isoechoic, smooth margin, no calcification and positive intranodular flow. It is uncertain whether this represents a true nodule or area of gland heterogeneity. ISTHMUS: No nodules. LEFT THYROID LOBE: There is 1 nodule seen. 1. Location: Superior/medial to the thyroid. Size: 0.7 x 0.5 x 0.6 cm. Previous: 0.7 x 0.6 x 0.6 cm. Nodule characteristics: Hyperechoic center and hypoechoic periphery, smooth margin, no calcification and no intranodular flow. This is exophytic to the superior medial left lobe. This appears unchanged. Differential would include lymph node and exophytic thyroid nodule. Laboratory Tests 07/12/20 08/07/20 08/27/20 08:28 18:31 08:15 Creatinine 1.63 H Calcium 9.1 9.0 9.1 D Alkaline Phosphatase 81 Albumin 4.0 N-Telopeptide X-linked 25-OH Vitamin D Total 11/16/20 11/16/20 11/16/20 08:30 08:30 08:30 Creatinine 1.60 H Calcium 9.0 Alkaline Phosphatase Albumin N-Telopeptide X-linked 16 25-OH Vitamin D Total 39.9 No fractures since last visit [facility] Medical History (Updated 01/25/24 @ 10:38 by Molly Foster MD) Osteopenia of multiple sites History of pulmonary embolism Dyslipidemia (high LDL; low HDL) Impaired fasting glucose Left medial knee pain Pulmonary emphysema Non-toxic multinodular goiter BPH (benign prostatic hyperplasia) Ground glass opacity present on imaging of lung Pulmonary embolism CKD (chronic kidney disease) Osteoporosis Hypertension Surgical History Hx of tonsillectomy History of prostate surgery History of appendectomy Family History Brother Coronary artery disease Sister Lung cancer Bone cancer Brain cancer Social History Household Members: Spouse Housing: House Do you presently have visiting nurse or other home services: No Alcohol intake: current Alcohol intake frequency: 0-2 drinks per day Alcohol type: wine Comment: heparin bolus Patient Tobacco Use Status: Never used Tobacco e-Cigarette/Vaping Use: Never Used Second Hand Smoke Exposure: No Advance Directives Date on File: 08/17/20 service: No Current occupational status: employed 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 OLGUIN Code(s): M81.0 - Age-related osteoporosis without current pathological fracture Category: Medical Qualifiers: Osteoporosis type: age-related Presence of current pathological fracture: without current pathological fracture Qualified Code(s): M81.0 - Age-related osteoporosis without current pathological fracture Plan: This is 73-year-old white male with a history of osteoporosis and CKD stage 3 took a brief course of bisphosphonate with intolerance and was on Prolia for the past 5 years time followed by a year of Actonel. He is currently off pharmacologic therapy on calcium and vitamin-D His DEXA bone density is out of osteoporotic range and he has not fracture. He has a persistently elevated PTH with normal 25 hydroxy vitamin-D. Differential diagnosis might include CKD with 1, 25 hydroxy vitamin-D deficiency or normocalcemic primary hyperparathyroidism. Calciums have been mid normal range Plan is to continue vitamin-D supplementation. He will follow up with Nephrology to maximize CKD-BMD. Will await urinary NTX. Will repeat bone density in 6 months' time. Orders: Orders XR DEXA axial skeleton Today M81.0 - Age-related osteoporosis without current pathological fracture XR DEXA appendicular skeleton Today M81.0 - Age-related osteoporosis without current pathological fracture XR DEXA appendicular skeleton Today M81.0 - Age-related osteoporosis without current pathological fracture Coding Level of Care Code Est Pt Level 3 (93347) Diagnoses Age-related osteoporosis without current pathological fracture M81.0 Osteoporosis type: age-related Presence of current pathological fracture: without current pathological fracture
== END 2024-03-13 08:11 | disposition home or self-care (01) ==
PROVIDERS: PCP Internal Medicine; Visit Provider Internal Medicine Endocrinology, Diabetes & Metabolism
DX: M81.0 Age-related osteoporosis without current pathological fracture (principal)
CPT/HCPCS: 99213

== ENCOUNTER → 2024-03-13 07:52 | Outpatient (BNVA) | payer OTHER, SELFPAY | PROVIDERS: PCP Internal Medicine; Visit Provider Internal Medicine Endocrinology, Diabetes & Metabolism ==

== ENCOUNTER 2024-04-25 08:04 | Outpatient (AMB) | payer OTHER, SELFPAY ==
[2024-04-25 08:05] VITALS: BP 140/82; PULSE 78; TEMP 37; O2SAT 98; BMI 29.5
--- NOTE | 2024-04-25 08:05 | MHC.OFFWIV ---
Intake Vital Signs 04/25/24 08:05 Height 5 ft 9 in Weight 200 lb BMI 29.5 BP 140/82 H Blood Pressure Location Lt brachial Position Sitting Pulse 78 Pulse Source Pulse Oximeter Temp 98.6 F Temp Source Temporal Artery Scan Pulse Oximetry (%) 98 Intake Visit Reasons: EP bulge on LT side AB Intake Note: Pt here c/o bulge LT side abdomen with urine smell Patient Tobacco Use Status: Never used Tobacco Allergies lisinopril Allergy (Unknown, Verified 04/25/24 08:05) cough Sulfa (Sulfonamide Antibiotics) [SULFA(SULFONAMIDE ANTIBIOTICS)] Allergy (Unknown, Verified 04/25/24 08:05) UNK, unknown Do you need a note to return to daycare/school/sports/work: No HPI HPI Comments History of Present Illness Details 74 y/o male patient who presents to walk in clinic with c/o left lower abdominal bulging since yesterday. He noticed it when he was taking a shower. Denies trauma or injury. Denies any pain. [facility] Medical History (Updated 01/25/24 @ 10:38 by Molly Foster MD) Osteopenia of multiple sites History of pulmonary embolism Dyslipidemia (high LDL; low HDL) Impaired fasting glucose Left medial knee pain Pulmonary emphysema Non-toxic multinodular goiter BPH (benign prostatic hyperplasia) Ground glass opacity present on imaging of lung Pulmonary embolism CKD (chronic kidney disease) Osteoporosis Hypertension Surgical History Hx of tonsillectomy History of prostate surgery History of appendectomy Family History Brother Coronary artery disease Sister Lung cancer Bone cancer Brain cancer Social History Household Members: Spouse Housing: House Do you presently have visiting nurse or other home services: No Alcohol intake: current Alcohol intake frequency: 0-2 drinks per day Alcohol type: wine Comment: heparin bolus Patient Tobacco Use Status: Never used Tobacco e-Cigarette/Vaping Use: Never Used Second Hand Smoke Exposure: No Advance Directives Date on File: 08/17/20 service: No Current occupational status: employed 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 Palpation (GI): Soft to palpation, not firm, nontender, no guarding, not rigid and No hepatosplenomegaly present Auscultation: normal bowel sounds Neuro General: patient oriented x3, gait normal and moves all extremities Psych Speech and movement: Normal speech and movement present Assessment & Plan Assessment & Plan (1) Mass of abdomen: Code(s): R19.00 - Intra-abdominal and pelvic swelling, mass and lump, unspecified site Qualifiers: Abdominal location: left lower quadrant Qualified Code(s): R19.04 - Left lower quadrant abdominal swelling, mass and lump Plan: Abdominal Xray ordered No clear Etiology Looks to me like Lipoma vs Mass vs Lump Advised Pt to F/u with PCP for further evaluation. Orders: Orders XR abdomen min 2V Today R19.04 - Left lower quadrant abdominal swelling, mass and lump Coding Level of Care Code Est Pt Level 3 (60406) Diagnoses Left lower quadrant abdominal mass R19.04 Abdominal location: left lower quadrant Time Spent (min) 15
== END 2024-04-25 09:03 | disposition home or self-care (01) ==
PROVIDERS: PCP Internal Medicine; Visit Provider Nurse Practitioner Family
DX: R19.04 Left lower quadrant abdominal swelling, mass and lump (principal)
CPT/HCPCS: 81003; 99213

== ENCOUNTER 2024-04-25 08:29 | Outpatient (REF) | payer OTHER, SELFPAY ==
--- NOTE | ~2024-04-25 | XR_ITS ---
EXAMINATION: XR ABDOMEN COMPLETE CLINICAL INDICATION: Left lower quadrant abdominal swelling, mass and lump COMPARISON: None available. TECHNIQUE: 2 views of the abdomen. FINDINGS: The bowel gas pattern is normal with no evidence of ileus or obstruction. No unusual soft tissue calcifications are noted. The bones are unremarkable. XR/XR abdomen min 2V IMPRESSION: Unremarkable examination.
== END 2024-04-25 08:30 | disposition home or self-care (01) ==
LOC: HO.HMGCX 08:29
PROVIDERS: PCP Internal Medicine; Visit Provider Internal Medicine
DX: R19.04 Left lower quadrant abdominal swelling, mass and lump (principal)
CPT/HCPCS: 74019

== ENCOUNTER 2024-04-29 08:36 | Outpatient (AMB) | payer OTHER, SELFPAY ==
--- NOTE | 2024-04-29 08:45 | MHC.PC.OV ---
Vital Signs 04/29/24 08:46 Height 5 ft 9 in Weight 202 lb BMI 29.8 BP 158/88 H Blood Pressure Location Rt brachial Position Sitting Pulse 84 Pulse Source Pulse Oximeter Pulse Oximetry (%) 97 Oxygen Delivery Method Room Air Intake Visit Reasons: Follow up from Walk-in ~ Bulge on LT side of AB Intake Note: Pt is here today to f/u walkin for mass Lt side of abdomen Allergies lisinopril Allergy (Unknown, Verified 05/05/24 00:59) cough Sulfa (Sulfonamide Antibiotics) [SULFA(SULFONAMIDE ANTIBIOTICS)] Allergy (Unknown, Verified 05/05/24 00:59) UNK, unknown Medication List - Last Reconciled 05/05/24 by Molly Foster MD acetaminophen (Tylenol Extra Strength) 500 mg PO Q6H PRN aspirin (Adult Low Dose Aspirin) 81 mg PO DAILY calcium citrate-vitamin D3 315 mg-6.25 mcg (250 unit) (Citracal + Vitamin D Maximum) 2 tabs PO DAILY cetirizine 10 mg PO BEDTIME PRN colchicine 0.6 mg PO DAILY PRN losartan 50 mg PO DAILY bmsaczcmallx-efyyorvr-lbtmuj tabs rosuvastatin 5 mg PO DAILY 90 days Tobacco use date assessed: 04/29/24 Fall risk assessment: No Falls in past year Last assessed Fall Risk: 04/29/24 Dental Screening Dental Screen Date: 04/29/24 Did you have a dental visit in the last 12 months?: Yes Did you have a dental problem in the last 6 months where you did not have access to dental care?: No Was dental information given to patient?: Patient has dentist HPI Follow up from Walk-in ~ Bulge on LT side of AB HPI Details 74 year old male, here today for follow-up after recent walk-in visit, where he was complaining of a bulge on the left side of his abdomen. Denies any pain over site, noticed it just couple of days ago. No history of trauma or any strenuous exertion, no change in bowel habits, no urinary symptoms. . X-ray of the abdomen ordered at the walk-in clinic showed unremarkable findings. [facility] Medical History Osteopenia of multiple sites History of pulmonary embolism Dyslipidemia (high LDL; low HDL) Impaired fasting glucose Left medial knee pain Pulmonary emphysema Non-toxic multinodular goiter BPH (benign prostatic hyperplasia) Ground glass opacity present on imaging of lung Pulmonary embolism CKD (chronic kidney disease) Osteoporosis Hypertension Surgical History Hx of tonsillectomy History of prostate surgery History of appendectomy Family History Brother Coronary artery disease Sister Lung cancer Bone cancer Brain cancer Social History Household Members: Spouse Housing: House Do you presently have visiting nurse or other home services: No Alcohol intake: current Alcohol intake frequency: 0-2 drinks per day Alcohol type: wine Comment: heparin bolus Patient Tobacco Use Status: Never used Tobacco e-Cigarette/Vaping Use: Never Used Second Hand Smoke Exposure: No Advance Directives Date on File: 08/17/20 service: No Current occupational status: employed 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 Dre Gallegos, Mary Bui, Alan Santos and colleagues, with an educational lesvia from [employer]. Review of Systems Const All systems reviewed & are unremarkable except as noted in HPI and below Physical exam (Primary Care) Vital Signs: Last Vital Signs Pulse 84 04/29/24 08:46 BP 158/88 H 04/29/24 08:46 Pulse Ox 97 04/29/24 08:46 Oxygen Delivery Method Room Air 04/29/24 08:46 BMI result Body Mass Index 29.8 Tobacco/Smoking Status: Tobacco use Status Tobacco use date assessed 04/29/24 04/29/24 08:58 Patient Tobacco Use Status Never used Tobacco 04/29/24 08:46 e-Cigarette/Vaping Use Never Used 04/29/24 08:46 Thrive Assessment: Date of Thrive Assessment Date Thrive assessed 01/25/24 04/29/24 08:46 Const Other: Alert oriented x3, no acute distress noted ambulatory normal gait Cardio Bruits: no abdominal aortic bruits GI Other: Abdominal folds noted bilateral, no mass palpated Inspection: Yes normal to inspection and No distended Palpation (GI): No Abdominal aortic bruit present, Soft to palpation, nontender, no guarding and no masses Auscultation: normal bowel sounds Assessment and Plan Assessment & Plan (1) Abdominal pannus: Code(s): E65 - Localized adiposity Plan: Explained to patient that is most likely excess fat in abdomen, encouraged to do regular weight-bearing exercise, to be able to tone muscle in his abdomen, in addition to adherence to healthy eating habits Coding Level of Care Code Est Pt Level 3 (53625) Diagnoses Abdominal pannus E65
[2024-04-29 08:46] VITALS: BP 158/88; PULSE 84; O2SAT 97; BMI 29.8
== END 2024-04-29 10:57 | disposition home or self-care (01) ==
PROVIDERS: PCP Internal Medicine; Visit Provider Internal Medicine
DX: E65 Localized adiposity (principal)
CPT/HCPCS: 99213

== ENCOUNTER → 2024-06-18 13:38 | Outpatient (RCR) | payer BC, SELFPAY ==
[2020-09-29 08:46] VITALS: BMI 26.4
[2020-09-29 08:47] VITALS: BP 151/86; PULSE 83; RESP 18; TEMP 36.3; O2SAT 99
[2020-09-29 08:48] LABS: MANUAL DIFF FLAG NO
[2020-09-29 08:53] LABS: Basophils Absolute Auto 0.1 X10*3/uL (0.0-0.2); Eosinophils Absolute Auto 0.4 X10*3/uL (0.0-0.4); Eosinophils Percent Auto 4.8 % (0-4); Hematocrit 37.5 % (42-52); Hemoglobin 12.4 g/dl (14.0-18.0); Imm Gran Abs Auto 0.02 X10*3/uL (0.00-0.03); Imm Gran Pct Auto 0.3 % (0.0-0.4); Lymphocytes Absolute Auto 1.7 X10*3/uL (1.2-4.9); Lymphocytes Percent Auto 23.3 % (20-40); Mean Corpuscular HGB Conc 33.1 g/dl (31.0-36.0); Mean Corpuscular Hemoglobin 32.2 pg (27.0-33.0); Mean Corpuscular Volume 97.4 fL (80-98); Mean Platelet Volume 10.2 fL (9.4-12.4); Monocytes Absolute Auto 0.6 X10*3/uL (0.1-1.2); Monocytes Percent Auto 7.9 % (2-11); Neutrophils Absolute Auto 4.6 X10*3/uL (2.0-8.3); Neutrophils Percent Auto 62.7 % (45-73); Platelet Count 265 X10*3/uL (160-400); Red Blood Count 3.85 X10*6/uL (4.60-5.80); Red Cell Distribution Width 13.2 % (11.0-16.0); White Blood Count 7.3 X10*3/uL (4.8-10.8)
[2020-09-29 08:59] LABS: D Dimer < 200 NG/ML
--- NOTE | 2020-09-29 09:10 | P.PNHO_ITS ---
Medical Summary - Medical Summary Date of Service: 09/29/20 Chief complaint: Follow-up Medical Summary: Diagnosis: Pulmonary embolism, high probability on V/Q scan 08/17/20 Flu like symptoms for few weeks prior to shortness of breath, weight loss of 10 lb and generalized weakness which made him somewhat bed-bound. Workup in the emergency department yesterday revealed D-dimer was elevated 2309. Therefore V/Q scan was obtained which showed high probability of pulmonary embolus. Chest CT showed emphysema with patchy ground-glass opacities in both upper lobes and patchy consolidation to the left lower lobe. No lymphadenopathy noted. No family history of thromboembolism although his father of postoperative complications at the age of 69. Interval History Interval history: Patient is here in follow-up. He is feeling a lot better now and then back to work a week ago. He is on Eliquis twice a day and tolerating it well. He denies any bruising or bleeding. His shortness of breath is minimal. His appetite has improved and he has gained some weight back. He denies any pleuritic chest pain, cough, headache or dizziness. He saw Dr. Toro and the plan is to get a repeat CT chest. Review of Systems - Constitutional Reports as per HPI - Eyes Reports no additional eye complaints - Cardiovascular Reports no additional cardiovascular complaints - Respiratory Reports no additional respiratory complaints - Gastrointestinal Reports no additional gastrointestinal complaints [facility] Medical History: Medical History (Last Updated 09/14/20 @ 12:48 by Mazin Toro MD) CKD (chronic kidney disease) Ground glass opacity present on imaging of lung Hypertension Osteoporosis Pulmonary embolism Pulmonary embolism Family History: Family History (Last Updated 09/29/20 @ 08:53 by Arti Olmstead RN) Brother Coronary artery disease Sister Lung cancer Bone cancer Brain cancer Surgical History: Surgical History (Last Reviewed 09/14/20 @ 12:38 by Mazin Toro MD) History of appendectomy Smoking status: Never smoker Oncology Screenings - ECOG Performance Status ECOG Performance Status: 0 Home Medications and Allergies Home Medications Medication Instructions Recorded Confirmed Type colchicine 0.6 mg tablet 0.6 mg PO DAILY PRN 08/12/20 09/02/20 History denosumab 60 mg/mL subcutaneous 60 mg SUBCUT [id number] 08/12/20 09/02/20 History syringe losartan 50 mg tablet 50 mg PO DAILY 08/12/20 09/02/20 History acetaminophen 500 mg tablet 500 mg PO Q6H PRN 08/26/20 09/02/20 History calcium citrate 315 mg 2 tab PO DAILY 08/26/20 09/02/20 History calcium-vitamin D3 6.25 mcg (250 unit) tablet [id number] tab 09/29/20 History [Centrum Silver] Allergies Allergy/AdvReac Type Severity Reaction Status Date / Time lisinopril Allergy Unknown cough Verified 09/29/20 08:53 Sulfa (Sulfonamide Allergy Unknown UNK, Verified 09/29/20 08:53 Antibiotics) unknown [SULFA(SULFONAMIDE ANTIBIOTICS)] Exam Vital signs: Vital Signs Temp 97.3 F 09/29/20 08:47 Pulse 83 09/29/20 08:47 Resp 18 09/29/20 08:47 BP 151/86 H 09/29/20 08:47 Pulse Ox 99 09/29/20 08:47 Intake & Output 09/28/20 09/29/20 09/29/20 18:59 06:59 18:59 Other: Weight 83.6 kg Weight 83.6 kg Body Mass Index 26.4 - Constitutional Present: no acute distress - Routine HEENT Exam Head: Present: normal inspection Eye: Present: EOMI - Routine Neck Exam Present: full ROM - Routine Respiratory Exam Present: CTAB - Routine Cardiovascular Exam Cardiovascular: Present: RRR, S1, S2 Data - Labs CBC & Chem 7: 09/29/20 08:40 Labs: 09/29/20 08:40 Complete Blood Count Auto Diff Routine D Dimer Routine Laboratory Last Values WBC 7.3 X10*3/uL (4.8-10.8) 09/29/20 08:40 RBC 3.85 X10*6/uL (4.60-5.80) L 09/29/20 08:40 Hgb 12.4 g/dl (14.0-18.0) L 09/29/20 08:40 Hct 37.5 % (42-52) L 09/29/20 08:40 MCV 97.4 fL (80-98) 09/29/20 08:40 MCH 32.2 pg (27.0-33.0) 09/29/20 08:40 MCHC 33.1 g/dl (31.0-36.0) 09/29/20 08:40 RDW 13.2 % (11.0-16.0) 09/29/20 08:40 Plt Count 265 X10*3/uL (160-400) D 09/29/20 08:40 MPV 10.2 fL (9.4-12.4) 09/29/20 08:40 Immature Gran % (Auto) 0.3 % (0.0-0.4) 09/29/20 08:40 Neut % (Auto) 62.7 % (45-73) 09/29/20 08:40 Lymph % (Auto) 23.3 % (20-40) 09/29/20 08:40 [place] % (Auto) 7.9 % (2-11) 09/29/20 08:40 Eos % (Auto) 4.8 % (0-4) H 09/29/20 08:40 Baso % (Auto) 1.0 % (0-2) 09/29/20 08:40 Lymph # (Auto) 1.7 X10*3/uL (1.2-4.9) 09/29/20 08:40 [place] # (Auto) 0.6 X10*3/uL (0.1-1.2) 09/29/20 08:40 Eos # (Auto) 0.4 X10*3/uL (0.0-0.4) 09/29/20 08:40 Baso # (Auto) 0.1 X10*3/uL (0.0-0.2) 09/29/20 08:40 Abs Immat Gran (auto) 0.02 X10*3/uL (0.00-0.03) 09/29/20 08:40 Absolute Neuts (auto) 4.6 X10*3/uL (2.0-8.3) 09/29/20 08:40 Absolute Nucleated RBC 0.000 X10*3/uL (0.0-0.012) 09/29/20 08:40 Nucleated RBC % (auto) 0.0 /100WBC (0.0-0.2) 09/29/20 08:40 D-Dimer < 200 NG/ML 09/29/20 08:40 Progress Note: A/P (1) Pulmonary embolism Status: Acute Assessment and plan: 1. This is a pleasant 70-year-old male admitted with bilateral pneumonia and pulmonary embolism. He has had symptoms for nearly a month, initially GI symptoms followed by respiratory symptoms. He was tested several times for COVID-19, both antigen and antibody tests are negative. He is not a smoker, there is no past history or family history of thromboembolism. No lower extremity DVT. He had CT chest/abdomen and pelvis on 08/17/2020 which did not reveal any acute pathology other than bilateral pneumonia and patchy ground- glass opacities. No lymphadenopathy. He is being scheduled for repeat CT chest to make sure the ground-glass opacities are resolving. He is on anticoagulation with Eliquis and tolerating it well. His D-dimer today is less than 200. I have asked him to discontinue Eliquis end of October 2020. 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 - Time Spent With Patient Total time spent is greater than 50% in coordination of care (as documented) at patient's floor/unit and/or counseling patient: 15 - 24 minutes
[2020-09-29 09:17] LABS: Lactate Dehydrogenase 178 U/L (118-273)
--- NOTE | 2020-09-29 09:20 | MHC.HEMONC ---
Patient seen today. Medical summary updated with nurse. Provider seen patient. No labs drawn today. No follow-up needed per Provider.
== END | disposition home or self-care (01) ==
LOC: HO.ONC 09-29 08:29
PROVIDERS: PCP Internal Medicine; Referring Provider Internal Medicine; Visit Provider Internal Medicine
DX: Z86.711 Personal history of pulmonary embolism (principal)
CPT/HCPCS: 36415; 83615; 85025; 85379; 99214

== ENCOUNTER 2024-06-20 08:46 | Outpatient (REF) | payer OTHER, SELFPAY ==
[2024-06-20 10:42] LABS: Alanine Aminotransferase 24 U/L (0-40); Aspartate Amino Transferase 18 U/L (5-37); Cholesterol 188 mg/dL (<200); HDL Cholesterol 46 mg/dL (>40); LDL Cholesterol Calculated 109 mg/dL (<100); Triglycerides 166 mg/dL (<150)
== END 2024-06-20 08:47 | disposition home or self-care (01) ==
LOC: HO.HMGCLDS 08:46
PROVIDERS: PCP Internal Medicine; Visit Provider Internal Medicine
DX: E78.5 Hyperlipidemia, unspecified (principal); N40.0 Benign prostatic hyperplasia without lower urinary tract symptoms; Z12.5 Encounter for screening for malignant neoplasm of prostate
CPT/HCPCS: 36415; 80061; 84153; 84450; 84460

== ENCOUNTER 2024-07-02 10:39 | Outpatient (AMB) | payer OTHER, SELFPAY ==
[2024-07-02 11:06] VITALS: BP 132/80; PULSE 91; O2SAT 98; BMI 29.5
--- NOTE | 2024-07-02 11:06 | A.OFFPC_ITS ---
Vital Signs 07/02/24 11:06 Height 5 ft 9 in Weight 200 lb BMI 29.5 BP 132/80 Blood Pressure Location Lt brachial Position Sitting Pulse 91 Pulse Source Pulse Oximeter Pulse Oximetry (%) 98 Oxygen Delivery Method Room Air Intake Visit Reasons: 6M F/U Intake Note: Pt is herev today for 6 months follow up visit on labs. Allergies lisinopril Allergy (Unknown, Verified 07/06/24 20:32) cough Sulfa (Sulfonamide Antibiotics) [SULFA(SULFONAMIDE ANTIBIOTICS)] Allergy (Unknown, Verified 07/06/24 20:32) UNK, unknown Medication List - Last Reconciled 07/06/24 by Molly Foster MD acetaminophen (Tylenol Extra Strength) 500 mg PO Q6H PRN aspirin (Adult Low Dose Aspirin) 81 mg PO DAILY calcium citrate-vitamin D3 315 mg-6.25 mcg (250 unit) (Citracal + Vitamin D Maximum) 2 tabs PO DAILY cetirizine 10 mg PO BEDTIME PRN colchicine 0.6 mg PO DAILY PRN losartan 50 mg PO DAILY swkhuldkrdps-ryoozakk-fqvzno tabs rosuvastatin 5 mg PO DAILY 90 days Tobacco use date assessed: 07/02/24 Fall risk assessment: No Falls in past year Last assessed Fall Risk: 07/02/24 Dental Screening Dental Screen Date: 04/29/24 HPI 6M F/U HPI Details 74-year-old male with hypertension hyper lipidemia, here today for follow-up. He has been taking his medications as directed but admits to not being able to do any regular exercise due to his job schedule. He has been feeling well otherwise with no complaints at present time. Latest fasting labs showed lipids are within normal limits except for mildly elevated triglycerides PFSH Medical History Osteopenia of multiple sites History of pulmonary embolism Dyslipidemia (high LDL; low HDL) Impaired fasting glucose Left medial knee pain Pulmonary emphysema Non-toxic multinodular goiter BPH (benign prostatic hyperplasia) Ground glass opacity present on imaging of lung Pulmonary embolism CKD (chronic kidney disease) Osteoporosis Hypertension Surgical History Hx of tonsillectomy History of prostate surgery History of appendectomy Family History Brother Coronary artery disease Sister Lung cancer Bone cancer Brain cancer Social History Household Members: Spouse Housing: House Do you presently have visiting nurse or other home services: No Alcohol intake: current Alcohol intake frequency: 0-2 drinks per day Alcohol type: wine 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 Depression Screening Interpretation: Negative Depression Screening Done: Yes Source: Developed by Drs. Dre Gallegos, Mary Bui, Alan Santos and colleagues, with an educational lesvia from [employer]. Thrive Questionnaire Date Thrive assessed: 06/30/24 I am a: Patient What is your living situation today?: I have a steady place to live Within the past 12 months, did the food you bought not last and you didn't have the money to get more?: Never true Within the past 12 months, did you worry whether your food would run out before you got money to buy more?: Never true Do you have trouble paying for medicines?: No Do you have trouble getting transportation to medical appointments?: No Do you have trouble paying your heating and electricity bill?: No Do you have trouble taking care of your child, family member or friend?: I choose not to answer this question Do you have trouble with day-to-day activities such as bathing, preparing meals, shopping, managing finances, etc.?: No Are you currently unemployed and looking for a job?: No Are you interested in more education?: No Please select the resources that you would like help with: None Currently or been in a relationship where the following occur: I choose not to answer THRIVE Score: 0 AUDIT C Alcohol Use Questionnaire (AUDIT-C) 1. How often do you have a drink containing alcohol?: 4 or more times a week 2. How many drinks containing alcohol do you have on a typical day when you are drinking?: 1 or 2 3. How often do you have six or more drinks on one occasion?: Never Total Score: 4 AMANDA-7 AMB Questionnaire AMANDA-7 Date AMANDA - 7 assessed: 01/25/24 Feeling nervous, anxious, or on edge: 0 = Not at all Not being able to stop or control worryin = Not at all Worrying too much about different things: 0 = Not at all Trouble relaxin = Not at all Being so restless that it is hard to sit still: 0 = Not at all Becoming easily annoyed or irritable: 0 = Not at all Feeling afraid as if something awful might happen: 0 = Not at all Total AMANDA-7 score (0-4 normal; 5-9 mild; 10-14 moderate; 15-21 severe): 0 Source: Developed by Drs. Dre Gallegos, Mary Bui, Alan Santos and colleagues, with an educational lesvia from [employer]. Review of Systems Const All systems reviewed & are unremarkable except as noted in HPI and below Physical exam (Primary Care) Vital Signs: Last Vital Signs Pulse 91 07/02/24 11:06 BP 132/80 07/02/24 11:06 Pulse Ox 98 07/02/24 11:06 Oxygen Delivery Method Room Air 07/02/24 11:06 BMI result Body Mass Index 29.5 Tobacco/Smoking Status: Tobacco use Status Tobacco use date assessed 07/02/24 07/02/24 11:18 Patient Tobacco Use Status Never used Tobacco 07/02/24 11:07 e-Cigarette/Vaping Use Never Used 07/02/24 11:07 Depression Screening Interpretation: Negative Thrive Assessment: Date of Thrive Assessment Date Thrive assessed 06/30/24 07/02/24 11:07 Currently or been in a relationship where the following occur: I choose not to answer Const Orientation/consciousness: patient oriented x3 Neck Other: Supple, no lymphadenopathy, thyroid gland nonpalpable Resp Auscultation: clear to auscultation bilaterally Cardio Other: S1-S2 present regular rate and rhythm GI Palpation (GI): Soft to palpation, nontender, no guarding and no masses Auscultation: normal bowel sounds General: Yes no CVA tenderness Back/Spine/Pelvis Back: no CVA tenderness, No mass and No back tenderness Neuro General: patient oriented x3, gait normal, tone normal, moves all extremities, Normal light touch and pain sensation, no focal motor deficits and CN's II-XI intact bilaterally Extrem Other: No gross bone deformity or joint swelling seen. , standard as on palpation over the medial aspect of left knee joint, with mild crepitus noted Results Reviewed Results Reviewed: Name: Kenn Melissa Age/Sex: 74/M : 1950 Unit#: [id number] Attend Dr: Molly Foster MD Re06/20/24 Status: DEP [facility] Disch: SPEC : [id number] ECHO: 06/20/24 STATUS: COMP REQ : [id number] RECD: 06/20/24-[address]: Molly Foster MD COMP: 06/20/24 ENTERED: 06/20/[address]: ORDERED: AST, ALT, Lipid Panel Test Result Flag Reference AST (GOT) 18 5-37 U/L ALT (GPT) 24 0-40 U/L Triglyceride 166 H <150 mg/dL Desirable Triglyceride: less than 150 mg/dL Borderline High Triglyceride 150-199 mg/dL High Triglyceride: 200-499 mg/dL Very High Triglyceride: greater than or equal to 5OO mg/dL Cholesterol 188 <200 mg/dL Desirable Cholesterol: less than 200 mg/dL Borderline High Cholesterol: 200-239 mg/dL High Cholesterol: greater than 239 mg/dL LDL Calculated 109 H <100 mg/dL Desirable LDL: less than 100 mg/dL Near Optimal/Above Optimal LDL: 110-129 mg/dL Borderline High LDL: 130-159 mg/dL High LDL: 160-189 mg/dL Very High LDL: greater than or equal to 190 mg/dL HDL 46 >40 mg/dL Desirable HDL: greater than 40 mg/dL Note: This HDL assay may give artificially low results in patients with liver disease. Assessment and Plan Assessment & Plan (1) Dyslipidemia (high LDL; low HDL): Code(s): E78.5 - Hyperlipidemia, unspecified Plan: Continued on rosuvastatin 5 mg once daily , and reminded to continue with adhering to healthy eating habits start exercising regularly (2) Hypertension: Code(s): I10 - Essential (primary) hypertension Qualifiers: Hypertension type: primary hypertension Qualified Code(s): I10 - Essential (primary) hypertension Plan: Blood pressure stable controlled on losartan 50 mg daily. Coding Level of Care Code Est Pt Level 4 (84325) Complex EM visit Add On G2211 Diagnoses Dyslipidemia (high LDL; low HDL) E78.5 Primary hypertension I10 Hypertension type: primary hypertension
== END 2024-07-02 13:07 | disposition home or self-care (01) ==
PROVIDERS: PCP Internal Medicine; Visit Provider Internal Medicine
DX: E78.5 Hyperlipidemia, unspecified (principal); I10 Essential (primary) hypertension
CPT/HCPCS: 99214

== ENCOUNTER 2024-09-02 08:04 | Outpatient (REF) | payer OTHER, SELFPAY ==
--- NOTE | ~2024-09-02 | MM_ITS ---
EXAMINATION: BONE DENSITOMETRY CLINICAL INDICATION: Age-related osteoporosis without current pathological fracture. COMPARISON: Previous BD dated 08/31/2022 and baseline BD dated 01/26/2011, spine and left hip; 04/12/2018, forearm radius 33%. TECHNIQUE: Using a [employer] DXA System (software version: 13.1) manufactured by [employer], dual-energy x-ray absorptiometry was performed of the lumbar spine, left hip and left forearm radius 33%. The images are of good technical quality. Summary results are attached. FINDINGS: LEFT FEMUR, NECK: Current: BMD 0.696 g/cm2, Z-score -1.8, T-score -2.9, osteoporosis. Prior: BMD 0.778 g/cm2. Baseline: BMD 0.757 g/cm2. LEFT FEMUR, TOTAL: Current: BMD 0.772 g/cm2, Z-score -1.7, T-score -2.3, osteopenia, 9.5% decrease from previous, 6.7% decrease from baseline (<5% change is not significant). Prior: BMD 0.853 g/cm2. Baseline: BMD 0.827 g/cm2. AP SPINE L1-L4: Current: BMD 1.373 g/cm2, Z-score 1.4, T-score 1.3, normal, 0.3% increase from previous, 15.7% increase from baseline (<5% change is not significant). Prior: BMD 1.369 g/cm2. Baseline: BMD 1.187 g/cm2. LEFT FOREARM RADIUS 33%: BMD 0.911 g/cm2, Z-score 0.1, T-score -0.8, normal, 7.6% decrease from previous, 2.4% decrease from baseline (<5% change is not significant). Prior: BMD 0.986 g/cm2. Baseline: BMD 0.933 g/cm2. IDENTIFIED RISK FACTORS: Osteoporosis, kidney disease. HISTORY OF FRACTURE: None listed. MEDICATIONS: Calcium supplements or multivitamin, vitamin D, bisphosphonate. MM/XR DEXA appendicular skeleton IMPRESSION: 1. DIAGNOSIS: Osteoporosis based on the lowest T-score value of -2.9 in the femoral neck applying World Health Organization criteria. 2. 10-YEAR FRACTURE RISK PREDICTION, FRAX: According to the guidelines, FRAX calculation should only be performed on patients in the osteopenia bone density category. Therefore, FRAX was not performed on this patient. 3. Treatment Recommendations: NOF guidelines recommend consideration for treatment in postmenopausal women and men age 50 and older presenting with the following: -A hip or vertebral (clinical or morphometric) fracture. -T-score less than or equal to -2.5 at the femoral neck or spine after appropriate evaluation to exclude secondary causes. -Low bone mass at the hip or spine and a 10-year fracture probability by FRAX of greater than or equal to 3% for hip fracture or greater than or equal to 20% for major osteoporotic fracture based on the [place] adapted WHO algorithm. 4. Other Recommendations: All treatment decisions require clinical judgment and consideration of individual patient factors, including patient preferences, comorbidities, previous drug use, risk factors not captured in the FRAX model (e.g. frailty, falls, vitamin D deficiency, increased bone turnover, interval significant decline in bone density) and possible under or overestimation of fracture risk by FRAX. Additional medical evaluation for secondary cause of low bone mineral density may be appropriate. FUTURE SCAN RECOMMENDATION: People with diagnosed cases of osteoporosis or at high risk for fracture should have regular bone mineral density tests. For patients eligible for Medicare, routine testing is allowed once every 2 years. The testing frequency can be increased to one year for patients who have rapidly progressing disease, those who are receiving or discontinuing medical therapy to restore bone mass, or have additional risk factors. Electronically signed by: Isidro Diallo MD 09/02/2024 10:07 AM WEI MAHAJAN
== END 2024-09-02 08:05 | disposition home or self-care (01) ==
LOC: HO.MAMMO 08:04
PROVIDERS: PCP Internal Medicine; Visit Provider Internal Medicine Endocrinology, Diabetes & Metabolism
DX: M81.0 Age-related osteoporosis without current pathological fracture (principal)
CPT/HCPCS: 77081

== ENCOUNTER 2024-10-27 08:12 | Outpatient (AMB) | payer BC, SELFPAY ==
--- NOTE | 2024-10-27 08:15 | MHC.OFFVIS ---
Vital Signs 10/27/24 08:19 Height 5 ft 9.13 in Weight 207 lb 14.334 oz BMI 30.6 BP 138/82 Blood Pressure Location Lt brachial Position Sitting Pulse 94 Pulse Source Pulse Oximeter Intake Visit Reasons: f/u osteoporosis Intake Note: Patient present today for Osteoporosis follow up. [employer] Required: No Accompanied by: Self / Same As Patient Allergies lisinopril Allergy (Unknown, Verified 10/27/24 08:19) cough Sulfa (Sulfonamide Antibiotics) [SULFA(SULFONAMIDE ANTIBIOTICS)] Allergy (Unknown, Verified 10/27/24 08:19) UNK, unknown Medication List - Last Reconciled 10/27/24 by Dre Olguin MD acetaminophen (Tylenol Extra Strength) 500 mg PO Q6H PRN aspirin (Adult Low Dose Aspirin) 81 mg PO DAILY calcium citrate-vitamin D3 315 mg-6.25 mcg (250 unit) (Citracal + Vitamin D Maximum) 2 tabs PO DAILY cetirizine 10 mg PO BEDTIME PRN colchicine 0.6 mg PO DAILY PRN losartan 50 mg PO DAILY lciecwhkpdmi-iafswrns-nynbln tabs rosuvastatin 5 mg PO DAILY 90 days HPI Comments Details: 74 yo male today for fup visit, for osteoporosis management- He is doing well, has no complaints today. He had a bilateral pulmonary embolism last year. He was on anticoagulation for 4 months was stopped. He is currently off Actonel 35 mg Q wkly after transitioning from Prolia after 5 years treatment Patient was diagnosed with osteoporosis 2010, he tried Alendronate for about 2-3 months, he had an adverse reaction, with muscle and bone pain, serum like syndrome and was stopped. He also has swallowing issues. Denies prior fractures, no GERD, Grandmother in mother side had a hip fracture, no other FH of fractures or osteoporosis, positive h/o of nephrolithiasis, he does not know if they are calcium related, no steroids used, no smoker, + daily 4-10 oz of wine, no anti seizures medications, no bone deformities. Negative History of head or neck irradiation. Bisphosphonates use: for 2-3 months 2010. Calcium intake: 1300 mg daily between diet and supplements Vitamin D: 1000 units daily. Herbal medications. no. 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 Prior: BMD 1.279 g/cm2. Baseline: BMD 1.187 g/cm2. LEFT FEMUR, NECK: Current: BMD 0.775 g/cm2, Z-score -1.2, T-score -2.3, osteopenia. Prior: BMD 0.737 g/cm2. Baseline: BMD 0.757 g/cm2. LEFT FEMUR, TOTAL: Current: BMD 0.826 g/cm2, Z-score -1.4, T-score -1.9, osteopenia, 1.7% increase from previous, 0.1% decrease from baseline (<5% change is not significant). Prior: BMD 0.812 g/cm2. Baseline: BMD 0.827 g/cm2. LEFT FOREARM RADIUS 33%: Current: BMD 0.914 g/cm2, Z-score 0.0, T-score -0.8, normal, 2.0% decrease from baseline (<5% change is not significant). Prior (Baseline for forearm): BMD 0.933 g/cm2. US thyroid 12/22/19 Right Thyroid Lobe: 4.6 x 1.6 x 1.5 cm, volume 5.8 mL. Previously 4.7 x 1.9 x 1.4 cm, volume 6.5 mL. Parenchyma: The gland echotexture is homogeneous. Thyroid vascularity is normal. Left Thyroid Lobe: 3.9 x 1.5 x 1.2 cm, volume 3.7 mL. Previously 4.4 x 1.3 x 1.4 cm, volume 4.2 mL. Parenchyma: The gland echotexture is homogeneous. Thyroid vascularity is normal. Isthmus: 0.5 cm in maximum AP dimension. Previously 0.4 cm. RIGHT THYROID LOBE: There are 3 nodules seen. 1. Location: Medial/mid. Size: 0.3 x 0.2 x 0.2 cm. Previous: 0.2 x 0.1 x 0.2 cm. Nodule characteristics: Hypoechoic and cystic, smooth margin, no calcification and no intranodular flow 2. Location: Lower pole. Size: 0.2 x 0.1 x 0.1 cm. Previous: 0.2 x 0.1 x 0.1 cm. Nodule characteristics: Hypoechoic and cystic, smooth margin, no calcification and no intranodular flow 3. Location: Inferior Size: 0.8 x 0.7 x 0.6 cm. Previous: 0.8 x 0.7 x 0.6 cm. Nodule characteristics: Isoechoic, smooth margin, no calcification and positive intranodular flow. It is uncertain whether this represents a true nodule or area of gland heterogeneity. ISTHMUS: No nodules. LEFT THYROID LOBE: There is 1 nodule seen. 1. Location: Superior/medial to the thyroid. Size: 0.7 x 0.5 x 0.6 cm. Previous: 0.7 x 0.6 x 0.6 cm. Nodule characteristics: Hyperechoic center and hypoechoic periphery, smooth margin, no calcification and no intranodular flow. This is exophytic to the superior medial left lobe. This appears unchanged. Differential would include lymph node and exophytic thyroid nodule. Laboratory Tests 07/12/20 08/07/20 08/27/20 08:28 18:31 08:15 Creatinine 1.63 H Calcium 9.1 9.0 9.1 D Alkaline Phosphatase 81 Albumin 4.0 N-Telopeptide X-linked 25-OH Vitamin D Total 11/16/20 11/16/20 11/16/20 08:30 08:30 08:30 Creatinine 1.60 H Calcium 9.0 Alkaline Phosphatase Albumin N-Telopeptide X-linked 16 25-OH Vitamin D Total 39.9 No fractures since last visit . Currently on calcium and vitamin-D. Recent DEXA showed stable bone density but osteoporosis of the left femoral neck [facility] Medical History Osteopenia of multiple sites History of pulmonary embolism Dyslipidemia (high LDL; low HDL) Impaired fasting glucose Left medial knee pain Pulmonary emphysema Non-toxic multinodular goiter BPH (benign prostatic hyperplasia) Ground glass opacity present on imaging of lung Pulmonary embolism CKD (chronic kidney disease) Osteoporosis Hypertension Surgical History Hx of tonsillectomy History of prostate surgery History of appendectomy Family History Brother Coronary artery disease Sister Lung cancer Bone cancer Brain cancer Social History Household Members: Spouse Housing: House Do you presently have visiting nurse or other home services: No Alcohol intake: current Alcohol intake frequency: 0-2 drinks per day Alcohol type: wine Comment: heparin bolus Patient Tobacco Use Status: Never used Tobacco e-Cigarette/Vaping Use: Never Used Second Hand Smoke Exposure: No Advance Directives Date on File: 08/17/20 service: No Current occupational status: employed 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 OLGUIN Code(s): M81.0 - Age-related osteoporosis without current pathological fracture Category: Medical Qualifiers: Osteoporosis type: age-related Presence of current pathological fracture: without current pathological fracture Qualified Code(s): M81.0 - Age-related osteoporosis without current pathological fracture Plan: This is 74-year-old white male with a history of osteoporosis and CKD stage 3 took a brief course of bisphosphonate with intolerance and was on Prolia for the past 5 years time followed by a year of Actonel. He is currently off pharmacologic therapy on calcium and vitamin-D His DEXA bone density shows stable bone density but left femoral neck in the osteoporotic range. He has a persistently elevated PTH with normal 25 hydroxy vitamin-D. Differential diagnosis might include CKD with 1, 25 hydroxy vitamin-D deficiency or normocalcemic primary hyperparathyroidism. Calciums have been mid normal range the patient is followed by Nephrology Dr. Leung Plan is to continue vitamin-D and calcium supplementation. We will check basic metabolic panel with calcium, albumin, PTH, 25 hydroxy vitamin-D at [facility] ) as well as 24 hour urine for calcium, creatinine and creatinine clearance with urine NTX at [facility] lab He will follow up with Nephrology to maximize CKD-BMD. Depending upon creatinine clearance and urine NTX, may consider restarting the Actonel. If results are consistent with normocalcemic primary hyperparathyroidism, patient could be a candidate for parathyroid exploration considering persistently declining bone density and history of renal dysfunction Orders: Orders Creatinine Clearance Urine 24U Today M81.0 - Age-related osteoporosis without current pathological fracture Collagen Crosslinks NTX Today M81.0 - Age-related osteoporosis without current pathological fracture Parathyroid Hormone Intact Today M81.0 - Age-related osteoporosis without current pathological fracture Calcium Today M81.0 - Age-related osteoporosis without current pathological fracture Albumin Level Today M81.0 - Age-related osteoporosis without current pathological fracture Vitamin D 25-OH Total Today M81.0 - Age-related osteoporosis without current pathological fracture Calcium, 24 Hr Ur Today M81.0 - Age-related osteoporosis without current pathological fracture Creatinine, 24 Hr Group Today M81.0 - Age-related osteoporosis without current pathological fracture Coding Level of Care Code Est Pt Level 3 (76585) Diagnoses Age-related osteoporosis without current pathological fracture M81.0 Osteoporosis type: age-related Presence of current pathological fracture: without current pathological fracture
[2024-10-27 08:19] VITALS: BP 138/82; PULSE 94; BMI 30.6
== END 2024-10-27 08:38 | disposition home or self-care (01) ==
PROVIDERS: PCP Internal Medicine; Visit Provider Internal Medicine Endocrinology, Diabetes & Metabolism
DX: M81.0 Age-related osteoporosis without current pathological fracture (principal)
CPT/HCPCS: 99213

== ENCOUNTER → 2024-10-27 08:12 | Outpatient (BNVA) | payer BC, SELFPAY | PROVIDERS: PCP Internal Medicine; Visit Provider Internal Medicine Endocrinology, Diabetes & Metabolism ==

== ENCOUNTER 2024-11-11 09:19 | Outpatient (AMB) | payer BC, SELFPAY ==
--- NOTE | 2024-11-11 09:24 | A.OFFVIS_ITS ---
Vital Signs 11/11/24 09:36 Height 5 ft 9 in Weight 207 lb BMI 30.6 Intake Visit Reasons: OV- Left knee OA, last durolane 12/14/22 Intake Note: Kenn is a 74 year old male who presents today for a follow up for his left knee OA, last Durolane gel injection 12/14/22. Patient reports his last gel injection gave him 3 months of relief. He mentions that he is interested in getting a cortisone injection today. Allergies lisinopril Allergy (Unknown, Verified 11/11/24 09:28) cough Sulfa (Sulfonamide Antibiotics) [SULFA(SULFONAMIDE ANTIBIOTICS)] Allergy (Unknown, Verified 11/11/24 09:28) UNK, unknown HPI HPI OV- Left knee OA, last durolane 12/14/22: Details: Mr. Melissa is a 74 year old male who presents today for a follow up for his left knee OA, last Durolane gel injection 12/14/22. Patient reports his last gel injection gave him 3 months of relief. He mentions that he is interested in getting a cortisone injection today. [facility] Medical History Osteopenia of multiple sites History of pulmonary embolism Dyslipidemia (high LDL; low HDL) Impaired fasting glucose Left medial knee pain Pulmonary emphysema Non-toxic multinodular goiter BPH (benign prostatic hyperplasia) Ground glass opacity present on imaging of lung Pulmonary embolism CKD (chronic kidney disease) Osteoporosis Hypertension Surgical History Hx of tonsillectomy History of prostate surgery History of appendectomy Family History Brother Coronary artery disease Sister Lung cancer Bone cancer Brain cancer Social History Household Members: Spouse Housing: House Do you presently have visiting nurse or other home services: No Alcohol intake: current Alcohol intake frequency: 0-2 drinks per day Alcohol type: wine Comment: heparin bolus Patient Tobacco Use Status: Never used Tobacco e-Cigarette/Vaping Use: Never Used Second Hand Smoke Exposure: No Advance Directives Date on File: 08/17/20 service: No Current occupational status: employed 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 No ecchymosis, erythema, or joint effusion. No tenderness to palpation to the medial or lateral joint lines. Full knee extension and flexion. Crepitus felt with ROM. Negative Saloni's. NVI. Psych Mental Status: mental status grossly normal Office Procedures AMB Joint Injection/Aspiration Joint Injection/Aspiration Primary Site: left knee Prep: site was prepped using aseptic technique, ethochloride spray was applied and injection warnings given Injected: 80 mg of, DepoMedrol, with 8 mL of (2% plain lido ) and in the joint Approach Used: anterolateral Procedure: The patient tolerated the procedure well, but had some pain with the injection and there was some relief with the local anesthesia Coding 42983 - Large joint Procedure code (CPT) selection complete Assessment & Plan Assessment & Plan (1) Osteoarthritis of left knee: Code(s): M17.12 - Unilateral primary osteoarthritis, left knee Category: Medical Qualifiers: Osteoarthritis type: unspecified Qualified Code(s): M17.12 - Unilateral primary osteoarthritis, left knee Plan Mr. Melissa is a 74 year old male who presents today for a follow up for his left knee OA, last Durolane gel injection 12/14/22. Patient reports his last gel injection gave him 3 months of relief. He mentions that he is interested in getting a cortisone injection today. The patient was offered a cortisone injection in the left knee with 80 mg of DepoMedrol. The patient was explained the risks, benefits, and alternatives to receiving this injection. After receiving consent for the injection, the patient had the procedure done while in the office today. The patient tolerated the procedure well with no complications. We will also petition the insurance company for coverage of gel injections and the patient will follow-up after approval, sooner if needed. X-rays of the left knee were obtained in the office today and reviewed by me, Rylee Moctezuma PA-C, and reveal osteoarthritis left knee. Orders: Orders XR knee LT 3V Today M25.569 - Pain in unspecified knee XR knee RT 1V Today M25.569 - Pain in unspecified knee Coding Level of Care Code Est Pt Level 3 (36078) Diagnoses Osteoarthritis of left knee, unspecified osteoarthritis type M17.12 Osteoarthritis type: unspecified CPT Codes Coding - 55514 Large joint: 21941 - Large joint ([id number])
[2024-11-11 09:36] VITALS: BMI 30.6
== END 2024-11-11 09:46 | disposition home or self-care (01) ==
PROVIDERS: PCP Internal Medicine; Visit Provider Physician Assistant
DX: M17.12 Unilateral primary osteoarthritis, left knee (principal)
CPT/HCPCS: 20610; 99213

== ENCOUNTER 2024-11-11 14:22 | Outpatient (REF) | payer BC, SELFPAY ==
--- NOTE | ~2024-11-11 | XR_ITS ---
EXAMINATION: XR KNEE, LEFT CLINICAL INFORMATION: M25.569 - Pain in unspecified knee COMPARISON: None available. TECHNIQUE: Three views of the left knee. FINDINGS: There is loss of medial and patellofemoral compartment joint space with lateral patellar periarticular spurring. No loose bodies or bony erosive changes seen. Suspect mild suprapatellar joint effusion. XR/XR knee LT 3V IMPRESSION: Moderate degenerative changes medial and patellofemoral compartments. Electronically signed by: Philip Lagos MD 11/11/2024 12:40 PM EST
== END 2024-11-11 14:23 | disposition home or self-care (01) ==
LOC: HO.HOSX 14:22
PROVIDERS: Visit Provider Physician Assistant
DX: M17.12 Unilateral primary osteoarthritis, left knee (principal)
CPT/HCPCS: 20610; 73562; J1010; J2003

== ENCOUNTER 2025-03-23 08:07 | Outpatient (REF) | payer BC, SELFPAY ==
--- OUTSIDE RECORDS SUMMARY | 2025-03-23 08:13 | XMS_ITS | Clinical Summary ---
Author Organization [facility] Facility Address [address] [address] Care Team Providers Care Silver Buffer Name Role Phone Douglas Foster MD Primary Care Provider +1- [phone] Allergies Active Allergy Reactions Criticality Noted Date Comments Lisinopril Other (see comments) 08/14/2022 Sulfa Antibiotics Other (see comments) 08/14/20 Medications losartan (COZAAR) 50 MG tablet 08/12/2022 Active colchicine 0.6 MG tablet TAKE 1 TABLET BY MOUTH DAILY NEEDED FOR GOUT 05/19/2022 Active cetirizine (ZyrTEC) 10 MG tablet TAKE 1 TABLET BY MOUTH AT BEDTIME NEEDED FOR ALLERGY SYMPTOMS 07/11/2022 Active aspirin (ST DIVINE) 81 MG EC tablet Take 81 mg by mouth 1 (one) time each day Active rosuvastatin (CRESTOR) 5 MG tablet 02/05/2023 Active Active Problems Problem Noted Date Diagnosed Date Chronic kidney disease due to benign hypertensio n 02/06/2023 Elevated blood pressure read ing without diagnosis of hypertension 08/14/2022 Stage 3b chronic kidney disease 08/14/2022 Renal osteodystrophy 08/14/2022 Family History Medical History Relation Comments Cancer Mother Hypertension Sibling Relation Status Comments Father Mother Sibling Social History Tobacco Use Types Packs/Day Years Used Date Smoking Tobacco: Never Smokeless Tobacco: Never Tobacco Cessation:Counseling Given: Not Answered Alcohol Use Standard Drinks/Week Comments Yes 0 (1 standard drink = 0.6 oz pure alcohol) Alcoholic Drinks/day: 1-2 drinks per day Sex and Gender Information Value Date Recorded Sex Assigned at Not on file Legal Sex Male 5:09 PM EST Gender Identity Not on file Sexual Orientation Not on file Last Filed Vital Signs Vital Sign Reading Time Taken Comments Blood Pressure 127/65 01/22/2024 1:06 PM EDT Pulse 86 01/22/2024 1:06 PM EDT Temperature - - Respiratory Rate - - Oxygen Saturation 98% 01/22/2024 1:06 PM EDT Inhaled Oxygen Concentration - - Weight 91.7 kg (202 lb 3.2 oz) 01/22/2024 1:06 P M EDT Height - - Body Mass Index - - Plan of Treatment Health Maintenance Due Date Last Done Comments Pneumococcal Vaccine: 50+ Ye ars (1 of 2 - PCV) 1970 Colorectal Cancer Screening: Annual FOBT 2000 Colorectal Cancer Screening: Colonoscopy 2000 Colorectal Cancer Screening: Sigmoidoscopy 2000 Influenza Vaccine (Season Ended) 2025 Hepatitis B Vaccine Aged Out No longe r eligible based on patient's age to complete this topic Insurance [employer] Care Teams Silver Buffer Relationship Specialty Start Date End Date Douglas Foster MD 1960 [facility][note 3] [place] [address] PCP - General 11/01/20
[2025-03-23 10:27] LABS: Estimated Glomerular Filt Rate 39
[2025-03-23 10:29] LABS: Albumin Level 4.2 g/dL (3.5-5.0); Calcium 9.3 mg/dL (8.4-10.2)
[2025-03-23 10:55] LABS: Parathyroid Hormone Intact 137.8 pg/mL (8.7-77.1)
[2025-03-23 12:01] LABS: Creatinine, mg/dL 122.45
[2025-03-23 14:31] LABS: Creatinine (CrCl) 1.73 mg/dL (0.5-1.4); Creatinine Clearance 61.4 mL/min (85-125); Creatinine, 24Hr Urine 1.5 G/Day (1.0-2.0); Total Volume 24 Hour Urine 1250 mL
[2025-03-25 19:22] LABS: Calcium, 24 Hr Urine 45 mg/24 h; Calcium/Creatinine Ratio 31 mg/g creat (30-210); Creatinine 24Hr Urine 1.45 g/24 h (0.50-2.15)
[2025-03-28 20:24] LABS: N-Telopeptide 30 (see note); NTXCreaRU 131 mg/dL (20-320)
== END 2025-03-23 08:08 | disposition home or self-care (01) ==
LOC: HO.HMGCLDS 08:07
PROVIDERS: PCP Internal Medicine; Visit Provider Internal Medicine Endocrinology, Diabetes & Metabolism
DX: M81.0 Age-related osteoporosis without current pathological fracture (principal)
CPT/HCPCS: 36415; 82040; 82306; 82310; 82340; 82523; 82565; 82575; 83970

== ENCOUNTER 2025-03-26 08:01 | Outpatient (AMB) | payer BC, SELFPAY ==
--- OUTSIDE RECORDS SUMMARY | 2025-03-26 08:06 | XMS_ITS | Clinical Summary ---
Author Organization [facility] Facility Address [address] [address] Care Team Providers Care Outside Sales Account Executive Name Role Phone Douglas Foster MD Primary Care Provider +1- [phone] Allergies Active Allergy Reactions Criticality Noted Date [...] patient's age to complete this topic Insurance [employer] Care Teams Outside Sales Account Executive Relationship Specialty Start Date End Date Douglas Foster MD 1960 [place] [address] PCP - General 11/01/20
--- NOTE | 2025-03-26 08:08 | AM.OFFWIN_ITS ---
Intake Vital Signs 03/26/25 08:09 Height 5 ft 9 in Weight 210 lb BMI 31.0 BP 148/86 H Blood Pressure Location Lt brachial Position Sitting Pulse 89 Pulse Source Pulse Oximeter Temp 98.0 F Temp Source Oral Pulse Oximetry (%) 96 Oxygen Delivery Method Room Air Intake Visit Reasons: EP-lt ear infection Intake Note: Pt presents to the office today for c/o left ear pain x2 months. Patient Tobacco Use Status: Never used Tobacco Allergies lisinopril Allergy (Unknown, Verified 03/26/25 08:13) cough Sulfa (Sulfonamide Antibiotics) [SULFA(SULFONAMIDE ANTIBIOTICS)] Allergy (Unknown, Verified 03/26/25 08:13) UNK, unknown HPI HPI Comments History of Present Illness Details 75 y/o Male patient who presents to the walk in clinic with c/o left Ear pain x 2 months. Reports Pain left ear radiating up to the left Temporal region. Pain goes away with Ibuprofen. He saw his Dentist back in January who prescribed Amoxicillin for possible Dental infection - pain improved temporarily. Reports Pain got worse back in February and respond well with NSAIDs but not with Acetaminophen. He does have Sleep Apnea (snores at night) but never had any sleep testing. [facility] Medical History (Updated 03/26/25 @ 08:28 by Carina Whittaker NP) Otogenic otalgia of left ear Osteopenia of multiple sites History of pulmonary embolism Dyslipidemia (high LDL; low HDL) Impaired fasting glucose Left medial knee pain Pulmonary emphysema Non-toxic multinodular goiter BPH (benign prostatic hyperplasia) Ground glass opacity present on imaging of lung Pulmonary embolism CKD (chronic kidney disease) Osteoporosis Hypertension Surgical History Hx of tonsillectomy History of prostate surgery History of appendectomy Family History Brother Coronary artery disease Sister Lung cancer Bone cancer Brain cancer Social History Household Members: Spouse Housing: House Do you presently have visiting nurse or other home services: No Alcohol intake: current Alcohol intake frequency: 0-2 drinks per day Alcohol type: wine Comment: heparin bolus Patient Tobacco Use Status: Never used Tobacco e-Cigarette/Vaping Use: Never Used Second Hand Smoke Exposure: No Advance Directives Date on File: 08/17/20 service: No Current occupational status: employed 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 Cognitive needs: No Hearing needs: No Vision needs: Yes Review of Systems Const All systems reviewed & are unremarkable except as noted in HPI and below Physical Exam Vital Signs: Last Vital Signs Temp 98.0 F 03/26/25 08:09 Pulse 89 03/26/25 08:09 BP 148/86 H 03/26/25 08:09 Pulse Ox 96 03/26/25 08:09 Oxygen Delivery Method Room Air 03/26/25 08:09 BMI result Body Mass Index 31.0 Const General: no acute distress Nutritional Appearance: obese Orientation/consciousness: patient oriented x3 HEENT Ears: hearing grossly normal bilaterally, external ears normal, TM's normal bilaterally, EAC's normal and no periauricular adenopathy Neuro General: patient oriented x3, gait normal and moves all extremities Psych Speech and movement: Normal speech and movement present Assessment & Plan Assessment & Plan (1) Otogenic otalgia of left ear: Code(s): H92.02 - Otalgia, left ear Plan: TM clear and Intact, no signs of infection. Will Tx with Ear Drops with Anti- fungal due to Presence of Pain. Advised Patient that this could also be Temporal headaches radiating to the left Ear. If no improvement if Abx - needs to f/u with PCP. Medications: New ciprofloxacin-fluocinolone 0.3-0.025 % (0.25 mL) 0.25 mL otic (ears) Q12H 5 days 14 ea 0RF H92.02 - Otalgia, left ear Coding Level of Care Code Est Pt Level 4 (03969) Diagnoses Otogenic otalgia of left ear H92.02 Time Spent (min) 20
[2025-03-26 08:09] VITALS: BP 148/86; PULSE 89; TEMP 36.7; O2SAT 96; BMI 31.0
== END 2025-03-26 08:59 | disposition home or self-care (01) ==
PROVIDERS: PCP Internal Medicine; Visit Provider Nurse Practitioner Family
DX: H92.02 Otalgia, left ear (principal)

== ENCOUNTER → 2025-03-26 08:01 | Outpatient (BNVA) | payer BC, SELFPAY | PROVIDERS: PCP Internal Medicine | DX: Z13.89 Encounter for screening for other disorder (principal) ==

== ENCOUNTER 2025-04-18 07:43 | Outpatient (REF) | payer BC, SELFPAY ==
[2025-04-18 11:26] LABS: Estimated Average Glucose 111 mg/dL; Hemoglobin A1c % 5.5 % (<6.0)
[2025-04-18 11:36] LABS: Alanine Aminotransferase 34 U/L (0-40); Anion Gap 12 (12-20); Aspartate Amino Transferase 26 U/L (5-37); Blood Urea Nitrogen 24 mg/dL (9-16); Calcium 9.5 mg/dL (8.4-10.2); Carbon Dioxide 25 mmol/L (22-29); Chloride 109 mmol/L (96-108); Cholesterol 180 mg/dL (<200); Estimated Glomerular Filt Rate 39; Glucose Fasting 115 mg/dL (60-99); HDL Cholesterol 38 mg/dL (>40); LDL Cholesterol Calculated 114 mg/dL (<100); Potassium 4.7 mmol/L (3.3-5.1); Sodium 141 mmol/L (135-145); Triglycerides 144 mg/dL (<150)
== END 2025-04-18 07:44 | disposition home or self-care (01) ==
LOC: HO.HMGCLDS 07:43
PROVIDERS: PCP Internal Medicine; Visit Provider Internal Medicine
DX: N18.31 Chronic kidney disease, stage 3a (principal); R73.01 Impaired fasting glucose; E78.5 Hyperlipidemia, unspecified; I10 Essential (primary) hypertension
CPT/HCPCS: 36415; 80048; 80061; 83036; 84450; 84460

== ENCOUNTER 2025-04-22 07:54 | Outpatient (AMB) | payer BC, SELFPAY ==
--- OUTSIDE RECORDS SUMMARY | 2025-04-22 07:57 | XMS_ITS | Patient Health Record ---
Author Organization [facility] Address [address] [place] [address] Care Team Providers Care Slip Mixer Name Role Phone Kristin PRUITT, Molly Primary Care Provider Dre Lynn [phone] Allergies Allergen (clinical drug ingredient) Drug/Non Drug Allergy documented on EMR Reaction Allergy Type Onset Date Status Sulfa Unknown Drug Allergy Active Reason For Referral No Information Medications Medication SIG (Take, Route, Frequency, Duration) Notes Start Date End Date Status Aspirin prn Active Colyte w Flavor Packs 240 GM as directed Orally as directed for 1 day(s) 10/31/2015 Active Problems Problem Type SNOMED Code ICD Code Onset Dates Problem Status W/U Status Risk Notes Problem [id number] Encounter for screening for malignant neoplasm of colon (Z12.11) Active confirmed Problem 79481663 Irritable bowel syndrome without diarrhea (K58.9) Active confirmed Problem Screening for malignant neoplasm of rectum (145835757) Encounter for screening for malignant neoplasm of rectum (Z12.12) Active confirmed Problem 85910417 Preprocedural examination (Z01.818) Active confirmed Plan Of Treatment Future Test Test Name Order Date COLONOSCOPY 10/26/2015 Insurance Providers Payer Name Payer Address Payer Phone Subscriber Number Group Number Insured Name Patient Relationship to Insured Coverage Start Date Coverage End Date [facility] [address] [place] [address] [id number] ISI JULIO Self - patient is the insured Medical (General) History Medical History History ICD Code Screening colonoscopy 06-19-2005---neg. e xcept diverticulosis and hemorrhoids Irritable bowel syndrome--negative radha c disease labs in 2008 Hypertension--currently off meds Denies [place],DM,CVA,Lung disease,renal dise ase BPH Gout Surgical History Surgery Date(Month/Year) appendectomy-Dr. Urena 01/2012 Prostate for BPH
--- OUTSIDE RECORDS SUMMARY | 2025-04-22 07:57 | XMS_ITS | Clinical Summary ---
Author Organization [facility] Facility Address [address] [address] Care Team Providers Care Film Coater Name Role Phone Douglas Foster MD Primary Care Provider +1- [phone] Allergies Active Allergy Reactions Criticality Noted Date [...] patient's age to complete this topic Insurance [employer] Care Teams Film Coater Relationship Specialty Start Date End Date Douglas Foster MD 1960 [facility] [place] [address] PCP - General 11/01/20
--- NOTE | 2025-04-22 07:58 | MHC.OFFVIS ---
Vital Signs 04/22/25 08:04 Height 5 ft 9.08 in Weight 210 lb 5.136 oz BMI 31.0 BP 144/84 H Blood Pressure Location Lt brachial Position Sitting Pulse 82 Pulse Source Pulse Oximeter Pulse Oximetry (%) 98 Oxygen Delivery Method Room Air Intake Visit Reasons: f/u osteoporosis Intake Note: Patient present today for Osteoporosis follow up. Knowledge Architect Required: No Accompanied by: Self / Same As Patient Allergies lisinopril Allergy (Unknown, Verified 04/22/25 08:04) cough Sulfa (Sulfonamide Antibiotics) (SULFA(SULFONAMIDE ANTIBIOTICS)) Allergy (Unknown, Verified 04/22/25 08:04) UNK, unknown HPI Comments Details: 74 yo male today for fup visit, for osteoporosis management- He is doing well, has no complaints today. He had a bilateral pulmonary embolism last year. He was on anticoagulation for 4 months was stopped. He is currently off Actonel 35 mg Q wkly after transitioning from Prolia after 5 years treatment Patient was diagnosed with osteoporosis 2010, he tried Alendronate for about 2-3 months, he had an adverse reaction, with muscle and bone pain, serum like syndrome and was stopped. He also has swallowing issues. Denies prior fractures, no GERD, Grandmother in mother side had a hip fracture, no other FH of fractures or osteoporosis, positive h/o of nephrolithiasis, he does not know if they are calcium related, no steroids used, no smoker, + daily 4-10 oz of wine, no anti seizures medications, no bone deformities. Negative History of head or neck irradiation. Bisphosphonates use: for 2-3 months 2010. Calcium intake: 1300 mg daily between diet and supplements Vitamin D: 1000 units daily. Herbal medications. no. 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 Prior: BMD 1.279 g/cm2. Baseline: BMD 1.187 g/cm2. LEFT FEMUR, NECK: Current: BMD 0.775 g/cm2, Z-score -1.2, T-score -2.3, osteopenia. Prior: BMD 0.737 g/cm2. Baseline: BMD 0.757 g/cm2. LEFT FEMUR, TOTAL: Current: BMD 0.826 g/cm2, Z-score -1.4, T-score -1.9, osteopenia, 1.7% increase from previous, 0.1% decrease from baseline (<5% change is not significant). Prior: BMD 0.812 g/cm2. Baseline: BMD 0.827 g/cm2. LEFT FOREARM RADIUS 33%: Current: BMD 0.914 g/cm2, Z-score 0.0, T-score -0.8, normal, 2.0% decrease from baseline (<5% change is not significant). Prior (Baseline for forearm): BMD 0.933 g/cm2. US thyroid 12/22/19 Right Thyroid Lobe: 4.6 x 1.6 x 1.5 cm, volume 5.8 mL. Previously 4.7 x 1.9 x 1.4 cm, volume 6.5 mL. Parenchyma: The gland echotexture is homogeneous. Thyroid vascularity is normal. Left Thyroid Lobe: 3.9 x 1.5 x 1.2 cm, volume 3.7 mL. Previously 4.4 x 1.3 x 1.4 cm, volume 4.2 mL. Parenchyma: The gland echotexture is homogeneous. Thyroid vascularity is normal. Isthmus: 0.5 cm in maximum AP dimension. Previously 0.4 cm. RIGHT THYROID LOBE: There are 3 nodules seen. 1. Location: Medial/mid. Size: 0.3 x 0.2 x 0.2 cm. Previous: 0.2 x 0.1 x 0.2 cm. Nodule characteristics: Hypoechoic and cystic, smooth margin, no calcification and no intranodular flow 2. Location: Lower pole. Size: 0.2 x 0.1 x 0.1 cm. Previous: 0.2 x 0.1 x 0.1 cm. Nodule characteristics: Hypoechoic and cystic, smooth margin, no calcification and no intranodular flow 3. Location: Inferior Size: 0.8 x 0.7 x 0.6 cm. Previous: 0.8 x 0.7 x 0.6 cm. Nodule characteristics: Isoechoic, smooth margin, no calcification and positive intranodular flow. It is uncertain whether this represents a true nodule or area of gland heterogeneity. ISTHMUS: No nodules. LEFT THYROID LOBE: There is 1 nodule seen. 1. Location: Superior/medial to the thyroid. Size: 0.7 x 0.5 x 0.6 cm. Previous: 0.7 x 0.6 x 0.6 cm. Nodule characteristics: Hyperechoic center and hypoechoic periphery, smooth margin, no calcification and no intranodular flow. This is exophytic to the superior medial left lobe. This appears unchanged. Differential would include lymph node and exophytic thyroid nodule. Laboratory Tests 07/12/20 08/07/20 08/27/20 08:28 18:31 08:15 Creatinine 1.63 H Calcium 9.1 9.0 9.1 D Alkaline Phosphatase 81 Albumin 4.0 N-Telopeptide X-linked 25-OH Vitamin D Total 11/16/20 11/16/20 11/16/20 08:30 08:30 08:30 Creatinine 1.60 H Calcium 9.0 Alkaline Phosphatase Albumin N-Telopeptide X-linked 16 25-OH Vitamin D Total 39.9 No fractures since last visit . Currently on calcium and vitamin-D. Recent DEXA showed stable bone density but osteoporosis of the left femoral neck. Repeat blood work showed normal calcium and PTH at BRL. Urine NTX was 30. The patient is a 75-year-old male presenting with osteoporosis management and monitoring of parathyroid and calcium levels. The patient has been taking calcium and vitamin D supplements, with no fractures reported since the last visit. Recent lab results showed normal parathyroid and calcium levels, indicating stability in his condition. The patient is also preparing for cataract surgery and has a history of arthritis, which was noted during the visit. [facility] Medical History (Updated 03/26/25 @ 08:28 by Carina Whittaker NP) Otogenic otalgia of left ear Osteopenia of multiple sites History of pulmonary embolism Dyslipidemia (high LDL; low HDL) Impaired fasting glucose Left medial knee pain Pulmonary emphysema Non-toxic multinodular goiter BPH (benign prostatic hyperplasia) Ground glass opacity present on imaging of lung Pulmonary embolism CKD (chronic kidney disease) Osteoporosis Hypertension Surgical History Hx of tonsillectomy History of prostate surgery History of appendectomy Family History Brother Coronary artery disease Sister Lung cancer Bone cancer Brain cancer Social History Household Members: Spouse Housing: House Do you presently have visiting nurse or other home services: No Alcohol intake: current Alcohol intake frequency: 0-2 drinks per day Alcohol type: wine Comment: heparin bolus Patient Tobacco Use Status: Never used Tobacco e-Cigarette/Vaping Use: Never Used Second Hand Smoke Exposure: No Advance Directives Date on File: 08/17/20 service: No Current occupational status: employed 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 OLGUIN Code(s): M81.0 - Age-related osteoporosis without current pathological fracture Category: Medical Qualifiers: Osteoporosis type: age-related Presence of current pathological fracture: without current pathological fracture Qualified Code(s): M81.0 - Age-related osteoporosis without current pathological fracture Plan: This is 74-year-old white male with a history of osteoporosis and CKD stage 3 took a brief course of bisphosphonate with intolerance and was on Prolia for the past 5 years time followed by a year of Actonel. He is currently off pharmacologic therapy on calcium and vitamin-D His DEXA bone density shows stable bone density but left femoral neck in the osteoporotic range. Repeat calcium and PTH at [facility] was WNL. Plan is to continue vitamin-D and calcium supplementation. will recheck Urine NTX in 6 mos and if rises may re-start bisphosphonate. Repeat Dexa is due 08/2026. F/u with nephrology to maximize CKD-BMD 1. Osteoporosis The patient will continue with calcium and vitamin D supplementation. A follow-up urine NTX test is planned in six months to monitor the effects of Actonel, which is currently on hold. Bone density will be reassessed in August of next year. I discussed with the patient the current management plan for osteoporosis, including the continuation of calcium and vitamin D supplements and the decision to hold Actonel for now. We agreed to reassess the situation in six months with a urine test and to evaluate bone density next year. The patient had an opportunity to ask questions regarding treatment plan. The patient expressed understanding and agreement with the above treatment plan. Patient was informed and verbally consented to the use of an ambient scribe for clinic note documentation during this visit. Orders: Orders Collagen Crosslinks NTX 6 Months M81.0 - Age-related osteoporosis without current pathological fracture Coding Level of Care Code Est Pt Level 3 (49474) Diagnoses Age-related osteoporosis without current pathological fracture M81.0 Osteoporosis type: age-related Presence of current pathological fracture: without current pathological fracture
[2025-04-22 08:04] VITALS: BP 144/84; PULSE 82; O2SAT 98; BMI 31.0
== END 2025-04-22 08:16 | disposition home or self-care (01) ==
LOC: HO.ENCR 07:55
PROVIDERS: PCP Internal Medicine; Visit Provider Internal Medicine Endocrinology, Diabetes & Metabolism
DX: M81.0 Age-related osteoporosis without current pathological fracture (principal)
CPT/HCPCS: 99213

== ENCOUNTER 2025-04-23 09:38 | Outpatient (AMB) | payer BC, SELFPAY ==
--- OUTSIDE RECORDS SUMMARY | 2025-04-23 10:01 | XMS_ITS | Patient Health Record ---
Author Organization [facility] Address [address] [place] [address] Care Team Providers Care Bait Man Name Role Phone Kristin PRUITT, Molly Primary Care Provider Dre Lynn [phone] Allergies Allergen (clinical drug ingredient) Drug/Non Drug [...] Problem Status W/U Status Risk Notes Problem 661043124 Encounter for screening for malignant neoplasm of colon (Z12.11) Active confirmed Problem 12288965 Irritable bowel syndrome without diarrhea (K58.9) Active confirmed Problem Screening for malignant neoplasm of rectum (021231915) Encounter for screening for malignant neoplasm of rectum (Z12.12) Active confirmed Problem [id number] Preprocedural examination (Z01.818) Active confirmed Plan Of Treatment Future Test Test Name Order Date COLONOSCOPY 10/26/2015 Insurance Providers Payer Name Payer Address Payer Phone Subscriber Number Group Number Insured Name Patient Relationship to Insured Coverage Start Date Coverage End Date [facility] [address] [place] [address] [id number] ISI JULIO Self - patient is the insured Medical (General) History Medical History History ICD Code Screening colonoscopy 06-19-2005---neg. e xcept diverticulosis and hemorrhoids Irritable bowel syndrome--negative radha c disease labs in 2008 Hypertension--currently off meds Denies MN,DM,CVA,Lung disease,renal dise ase BPH Gout Surgical History Surgery Date(Month/Year) appendectomy-Dr. Urena 01/2012 Prostate for BPH
--- OUTSIDE RECORDS SUMMARY | 2025-04-23 10:01 | XMS_ITS | Clinical Summary ---
Author Organization [facility] Facility Address [address] [address] Care Team Providers Care Brine Process Operator Name Role Phone Douglas Foster MD Primary Care Provider [phone] Allergies Active Allergy Reactions Criticality Noted Date [...] patient's age to complete this topic Insurance [employer] Care Teams Brine Process Operator Relationship Specialty Start Date End Date Douglas Foster MD 1960 [place] [address] PCP - General 11/01/20
[2025-04-23 10:27] VITALS: BP 135/90; PULSE 84; RESP 16; TEMP 37; O2SAT 95; BMI 30.9
--- NOTE | 2025-04-23 10:27 | A.OFFPC_ITS ---
Vital Signs 04/23/25 10:27 Height 5 ft 9 in Weight 209 lb BMI 30.9 BP 135/90 H Blood Pressure Location Lt brachial Position Sitting Respiration 16 Pulse 84 Pulse Source Pulse Oximeter Temp 98.6 F Temp Source Oral Pulse Oximetry (%) 95 Oxygen Delivery Method Room Air Intake Visit Reasons: Lt eye cat. 05/04 Rt eye 05/18 Dr. Norwood Intake Note: Pt is here today for his pre-op Lt cataract 05/04, Rt eye 05/[address] Norwood Allergies lisinopril Allergy (Unknown, Verified 04/23/25 10:51) cough Sulfa (Sulfonamide Antibiotics) (SULFA(SULFONAMIDE ANTIBIOTICS)) Allergy (Unknown, Verified 04/23/25 10:51) UNK, unknown Medication List - Last Reconciled 04/23/25 by Molly Foster MD acetaminophen (Tylenol Extra Strength) 500 mg PO Q6H PRN aspirin (Adult Low Dose Aspirin) 81 mg PO DAILY calcium citrate-vitamin D3 315 mg-6.25 mcg (250 unit) (Citracal + Vitamin D Maximum) 2 tabs PO DAILY cetirizine 10 mg PO BEDTIME PRN colchicine 0.6 mg PO DAILY PRN losartan 50 mg PO DAILY ppztgioembah-gbgggogu-ujrgko tabs rosuvastatin 5 mg PO DAILY 90 days vitamins A,C,C-ssse-lejlkc 4,296 mcg-226 mg-90 mg (PreserVision AREDS) 1 cap PO BID Tobacco use date assessed: 04/23/25 Fall risk assessment: No Falls in past year Last assessed Fall Risk: 04/23/25 Dental Screening Dental Screen Date: 04/23/25 Did you have a dental visit in the last 12 months?: Yes Did you have a dental problem in the last 6 months where you did not have access to dental care?: Yes Was dental information given to patient?: Patient has dentist HPI Lt eye cat. 05/04 Rt eye 05/18 Dr. Norwood HPI Details 75-year-old male with history of hyperte nsion, hyperlipidemia, osteoporosis, benign prostatic hyperplasia, here for preoperative exam for surgery scheduled for 05/04/2025 for the left eye and 05/18/2025 for the right, requested by Dr. Desai. He has been feeling well, with no new complaints at present time. His blood pressure and lipids are stable and controlled on present treatment. [facility] Medical History (Updated 04/26/25 @ 21:16 by Molly Foster MD) Otogenic otalgia of left ear History of pulmonary embolism Dyslipidemia (high LDL; low HDL) Impaired fasting glucose Left medial knee pain Pulmonary emphysema Non-toxic multinodular goiter BPH (benign prostatic hyperplasia) Ground glass opacity present on imaging of lung CKD (chronic kidney disease) Osteoporosis Hypertension Surgical History Hx of tonsillectomy History of prostate surgery History of appendectomy Family History Brother Coronary artery disease Sister Lung cancer Bone cancer Brain cancer Social History Household Members: Spouse Housing: House Do you presently have visiting nurse or other home services: No Alcohol intake: current Alcohol intake frequency: 0-2 drinks per day Alcohol type: wine 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 1. Little interest or pleasure in doing things: not at all 2. Feeling down, depressed, or hopeless: not at all 3. Trouble falling or staying asleep, or sleeping too much: not at all 4. Feeling tired or having little energy: not at all 5. Poor appetite or overeating: not at all 6. Feeling bad about yourself - or that you are a failure or have let yourself or your family down: not at all 7. Trouble concentrating on things, such as reading the newspaper or watching television: nearly every day 8. Moving or speaking so slowly that other people could have noticed. Or the opposite - being so fidgety or restless that you have been moving around a lot more than usual: not at all 9. Thoughts that you would be better off or of hurting yourself in some way: not at all Total score: 3 Depression Screening Interpretation: Negative Depression Screening Done: Yes [id number] - PHQ-9 Billing: Yes Source: Developed by Drs. Dre Gallegos, Mary Bui, Alan Santos and colleagues, with an educational lesvia from [employer]. Thrive Questionnaire Date Thrive assessed: 04/18/25 I am a: Patient What is your living situation today?: I have a steady place to live Within the past 12 months, did the food you bought not last and you didn't have the money to get more?: Often true Within the past 12 months, did you worry whether your food would run out before you got money to buy more?: Never true Do you have trouble paying for medicines?: No Do you have trouble getting transportation to medical appointments?: I choose not to answer this question Do you have trouble paying your heating and electricity bill?: No Do you have trouble taking care of your child, family member or friend?: No Do you have trouble with day-to-day activities such as bathing, preparing meals, shopping, managing finances, etc.?: No Are you currently unemployed and looking for a job?: No Are you interested in more education?: No Please select the resources that you would like help with: None Currently or been in a relationship where the following occur: No concerns reported THRIVE Score: 1 AUDIT C Alcohol Use Questionnaire (AUDIT-C) 1. How often do you have a drink containing alcohol?: Never Total Score: 0 AMANDA-7 AMB Questionnaire AMANDA-7 Date AMANDA - 7 assessed: 04/23/25 Feeling nervous, anxious, or on edge: 0 = Not at all Not being able to stop or control worryin = Not at all Worrying too much about different things: 0 = Not at all Trouble relaxin = Not at all Being so restless that it is hard to sit still: 0 = Not at all Becoming easily annoyed or irritable: 0 = Not at all Feeling afraid as if something awful might happen: 0 = Not at all Total AMANDA-7 score (0-4 normal; 5-9 mild; 10-14 moderate; 15-21 severe): 0 Source: Developed by Mary Dorsey.W. Hao, Alan Santos and colleagues, with an educational lesvia from [employer]. Review of Systems Const All systems reviewed & are unremarkable except as noted in HPI and below Physical exam (Primary Care) Vital Signs: Last Vital Signs Temp 98.6 F 04/23/25 10:27 Pulse 84 04/23/25 10:27 Resp 16 04/23/25 10:27 BP 135/90 H 04/23/25 10:27 Pulse Ox 95 04/23/25 10:27 Oxygen Delivery Method Room Air 04/23/25 10:27 BMI result Body Mass Index 30.9 Tobacco/Smoking Status: Tobacco use Status Tobacco use date assessed 04/23/25 04/23/25 10:33 Patient Tobacco Use Status Never used Tobacco 04/23/25 10:33 e-Cigarette/Vaping Use Never Used 04/23/25 10:33 PHQ-9: PHQ-9 Score PHQ-9: Total score 3 04/23/25 10:57 Depression Screening Interpretation: Negative Thrive Assessment: Date of Thrive Assessment Date Thrive assessed 04/18/25 04/23/25 10:33 Currently or been in a relationship where the following occur: No concerns reported Const Orientation/consciousness: patient oriented x3 HENMT Head: Yes normocephalic Ears: TM's normal bilaterally General nose exam: Normal external nose present Face and sinus: Yes face symmetric Mouth: Normal oral and palatal mucosa present, oropharynx normal and moist mucous membranes Eyes General: appearance normal, both eyes and all related structures Neck Other: Supple, no lymphadenopathy, thyroid gland nonpalpable Resp Auscultation: clear to auscultation bilaterally Cardio Other: S1-S2 present regular rate and rhythm GI Palpation (GI): Soft to palpation, nontender, no guarding and no masses Auscultation: normal bowel sounds General: Yes no CVA tenderness Back/Spine/Pelvis Back: no CVA tenderness, No mass and No back tenderness Neuro General: patient oriented x3, gait normal, tone normal, moves all extremities, Normal light touch and pain sensation, no focal motor deficits and CN's II-XI intact bilaterally Extrem Other: No gross bone deformity or joint swelling seen. , standard as on palpation over the medial aspect of left knee joint, with mild crepitus noted Coding Level of Care Code Est Pt Level 4 (83326) Diagnoses Preoperative examination Z01.818 Primary hypertension I10 Hypertension type: primary hypertension Dyslipidemia (high LDL; low HDL) E78.5 Age-related osteoporosis without current pathological fracture M81.0 Osteoporosis type: age-related Presence of current pathological fracture: without current pathological fracture BPH (benign prostatic hyperplasia) N40.0 Stage 3a chronic kidney disease N18.31 Chronic kidney disease stage: stage 3 (moderate) Chronic kidney disease stage 3 subtype: stage 3a (GFR 45-59) Additional Codes PHQ-9 - 97271 - PHQ-9 Billing: Yes ([id number]) Assessment & Plan Assessment & Plan (1) Preoperative examination: Code(s): Z01.818 - Encounter for other preprocedural examination Plan: 75-year-old male here todayPt for preoperative prior to cataract surgery scheduled for May 04 for the left eye in May 18 for right eye, requested by Dr. Desai. Preoperative examination is unremarkable, currently on aspirin 81 mg daily with no abnormal bleeding tendencies reported. He has a low cardiac risk index for proposed surgery (2) Hypertension: Code(s): I10 - Essential (primary) hypertension Category: Medical Qualifiers: Hypertension type: primary hypertension Qualified Code(s): I10 - Essential (primary) hypertension Plan: Blood pressure controlled with current treatment with losartan 50 mg daily. Reinforced importance of following a low sodium diet, getting regular exercise, and lowering stress levels. (3) Dyslipidemia (high LDL; low HDL): Code(s): E78.5 - Hyperlipidemia, unspecified Category: Medical Plan: Currently on rosuvastatin 5 mg taken daily (4) Osteoporosis: Comment: Currently being followed by Dr. OLGUIN Code(s): M81.0 - Age-related osteoporosis without current pathological fracture Category: Medical Qualifiers: Osteoporosis type: age-related Presence of current pathological fracture: without current pathological fracture Qualified Code(s): M81.0 - Age- related osteoporosis without current pathological fracture Plan: Currently on drug holiday from Actonel, followed by Dr. Olguin (5) BPH (benign prostatic hyperplasia): Code(s): N40.0 - Benign prostatic hyperplasia without lower urinary tract symptoms Category: Medical Plan: Asymptomatic (6) CKD (chronic kidney disease): Comment: Followed by Dr. Leung Code(s): N18.9 - Chronic kidney disease, unspecified Category: Medical Qualifiers: Chronic kidney disease stage: stage 3 (moderate) Chronic kidney disease stage 3 subtype: stage 3a (GFR 45-59) Qualified Code(s): N18.31 - Chronic kidney disease, stage 3a Plan: Followed by Nephrology, blood pressure and renal function stable and controlled on present treatment
== END 2025-04-23 11:06 | disposition home or self-care (01) ==
LOC: HO.HMCC 09:38
PROVIDERS: PCP Internal Medicine; Visit Provider Internal Medicine
DX: I12.9 Hypertensive chronic kidney disease with stage 1 through stage 4 chronic kidney disease, or unspecified chronic kidney disease (principal); N18.31 Chronic kidney disease, stage 3a; Z01.818 Encounter for other preprocedural examination; E78.5 Hyperlipidemia, unspecified; M81.0 Age-related osteoporosis without current pathological fracture; N40.0 Benign prostatic hyperplasia without lower urinary tract symptoms

== ENCOUNTER → 2025-04-23 09:38 | Outpatient (BNVA) | payer BC, SELFPAY | PROVIDERS: PCP Internal Medicine; Visit Provider Internal Medicine | DX: Z01.818 Encounter for other preprocedural examination (principal); E78.5 Hyperlipidemia, unspecified; M81.0 Age-related osteoporosis without current pathological fracture; N40.0 Benign prostatic hyperplasia without lower urinary tract symptoms; I12.9 Hypertensive chronic kidney disease with stage 1 through stage 4 chronic kidney disease, or unspecified chronic kidney disease; N18.31 Chronic kidney disease, stage 3a | CPT/HCPCS: 96127 ==

== ENCOUNTER 2025-05-04 07:40 | Day surgery (SDC) | payer BC, SELFPAY ==
--- OUTSIDE RECORDS SUMMARY | 2025-03-27 15:35 | XMS_ITS | Clinical Summary ---
Author Organization [facility] Facility Address [address] [address] Care Team Providers Care Welfare Investigator Name Role Phone Douglas Foster MD Primary Care Provider +1- [phone] Allergies Active Allergy Reactions Criticality Noted Date [...] patient's age to complete this topic Insurance [employer] Care Teams Welfare Investigator Relationship Specialty Start Date End Date Douglas Foster MD 1960 [place] [address] PCP - General 11/01/20
[2025-04-28 07:23] VITALS: BMI 30.9
--- NOTE | 2025-05-01 12:09 | HO.ANESPROP2 ---
Documented by User: Imelda Acevedo NP 05/01/25 12:10 HPI - Anesthesia Eval Consult details Narrative: 75yo M for Left Cataract Extraction IOL Insertion No previous cataract on record [facility] Active Problems Active Problems: All Active Problems Dyslipidemia (high LDL; low HDL) (Acute) Osteoarthritis of left knee (Acute) Impaired fasting glucose (Acute) Non-toxic multinodular goiter (Acute) BPH (benign prostatic hyperplasia) (Acute) Osteoporosis (Acute) CKD (chronic kidney disease) (Acute) Hypertension (Chronic) Past Medical History Medical History (Updated 04/26/25 @ 21:16 by Molly Foster MD) Otogenic otalgia of left ear History of pulmonary embolism Dyslipidemia (high LDL; low HDL) Impaired fasting glucose Left medial knee pain Pulmonary emphysema Non-toxic multinodular goiter BPH (benign prostatic hyperplasia) Ground glass opacity present on imaging of lung CKD (chronic kidney disease) Osteoporosis Hypertension Family History Family History Brother Coronary artery disease Sister Lung cancer Bone cancer Brain cancer Surgical History Surgical History Hx of tonsillectomy History of prostate surgery History of appendectomy Social History Social History Household Members: Spouse Housing: House Are you a primary patient care to a significant other at home: No Do you presently have visiting nurse or other home services: No Alcohol intake: current Alcohol intake frequency: does not drink Alcohol type: wine Comment: heparin bolus Patient Tobacco Use Status: Never used Tobacco e-Cigarette/Vaping Use: Never Used Second Hand Smoke Exposure: No Use of substances other than those prescribed or required for medical reasons: No Have you been hit, kicked, punched, or otherwise hurt by someone within the past year? 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 Cognitive needs: No Hearing needs: No Vision needs: Yes Meds Allergies Allergy/AdvReac Type Severity Reaction Status Date / Time lisinopril Allergy Unknown cough Verified 05/04/25 09:17 Sulfa (Sulfonamide Allergy Unknown UNK, Verified 05/04/25 09:17 Antibiotics) unknown (SULFA(SULFONAMIDE ANTIBIOTICS)) Home Medications ?Medication ?Instructions ?Recorded ?Confirmed ?Last Taken ?Type acetaminophen 500 mg tablet 500 mg PO Q6H PRN Pain 08/26/20 04/28/25 Unknown History (Tylenol Extra Strength) calcium 315 mg (as 2 tab PO DAILY 08/26/20 04/28/25 Unknown History citrate)-vitamin D3 6.25 mcg (250 unit) tablet (Citracal + Vitamin D Maximum) ybjgsjsmcelo-plkcqkpx-yshrcf tablet 1 tab PO DAILY 09/29/20 04/28/25 Unknown History aspirin 81 mg tablet,delayed 81 mg PO DAILY 01/03/21 04/28/25 05/03/25 History release (Adult Low Dose Aspirin) vitamins A,C,C-ppvf-aptewo 4,296 1 cap PO BID 04/22/25 04/28/25 Unknown History mcg-226 mg-90 mg capsule (PreserVision AREDS) Exam Height,Weight and Vital Signs: Height 5 ft 9 in Weight 94.801 kg Documented by User: Jose L Newell MD 05/04/25 09:24 [facility] Past Medical History Medical History (Updated 04/26/25 @ 21:16 by Molly Foster MD) Otogenic otalgia of left ear History of pulmonary embolism Dyslipidemia (high LDL; low HDL) Impaired fasting glucose Left medial knee pain Pulmonary emphysema Non-toxic multinodular goiter BPH (benign prostatic hyperplasia) Ground glass opacity present on imaging of lung CKD (chronic kidney disease) Osteoporosis Hypertension Family History Family History Brother Coronary artery disease Sister Lung cancer Bone cancer Brain cancer Family history of problems with anesthesia: No Surgical History Surgical History Hx of tonsillectomy History of prostate surgery History of appendectomy History of Problems with Anesthesia: No Social History Social History Household Members: Spouse Housing: House Are you a primary patient care to a significant other at home: No Do you presently have visiting nurse or other home services: No Alcohol intake: current Alcohol intake frequency: does not drink Alcohol type: wine Comment: heparin bolus Patient Tobacco Use Status: Never used Tobacco e-Cigarette/Vaping Use: Never Used Second Hand Smoke Exposure: No Use of substances other than those prescribed or required for medical reasons: No Have you been hit, kicked, punched, or otherwise hurt by someone within the past year? 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 Cognitive needs: No Hearing needs: No Vision needs: Yes Meds Allergies Allergy/AdvReac Type Severity Reaction Status Date / Time lisinopril Allergy Unknown cough Verified 05/04/25 09:17 Sulfa (Sulfonamide Allergy Unknown UNK, Verified 05/04/25 09:17 Antibiotics) unknown (SULFA(SULFONAMIDE ANTIBIOTICS)) Home Medications ?Medication ?Instructions ?Recorded ?Confirmed ?Last Taken ?Type acetaminophen 500 mg tablet 500 mg PO Q6H PRN Pain 08/26/20 04/28/25 Unknown History (Tylenol Extra Strength) calcium 315 mg (as 2 tab PO DAILY 08/26/20 04/28/25 Unknown History citrate)-vitamin D3 6.25 mcg (250 unit) tablet (Citracal + Vitamin D Maximum) ljduryvuyueb-yxvreyil-mieomf tablet 1 tab PO DAILY 09/29/20 04/28/25 Unknown History aspirin 81 mg tablet,delayed 81 mg PO DAILY 01/03/21 04/28/25 05/03/25 History release (Adult Low Dose Aspirin) vitamins A,C,N-ytil-axhqxg 4,296 1 cap PO BID 04/22/25 04/28/25 Unknown History mcg-226 mg-90 mg capsule (PreserVision AREDS) Exam Airway Mallampati Class: III TM Dist: >3cm Neck ROM: Full Assessment and Plan Assessment Anesthesia Assessment: Anesthesia Plan Discussed and Chart Reviewed Final Anesthetic Review Family History of Problems with Anesthesia: No History of Problems with Anesthesia: No NPO: Yes ASA Class: III Final Preanesthetic Review: No Changes in Pt Med Stat, Meds/Allgs Chart Reviewed, Consent Obtained/Reviewed and Anes Risks/Benef Reviewed Patient Risk: Intermediate Procedure Risk: Low Anesthetic Plan Anesthetic Plan: MAC: Disposition: Standard PACU
[2025-05-04 09:07] VITALS: BP 156/102; PULSE 95; RESP 18; TEMP 36.6; O2SAT 98
[2025-05-04] MEDS: Cyclopentolate 1 % Ophth Sol 2 ML DRPBTL 1 DROP EYE-LEFT ×3 (09:07→09:09)
[2025-05-04] MEDS: Lactated Ringers 500 ML 50 ML IV (09:07)
[2025-05-04] MEDS: Tetracaine HCl/PF 0.5% Oph Sol 4 ML DROPS 1 DROP EYE-LEFT (09:07)
[2025-05-04] MEDS: Ketorolac Tromethamine 0.5% Op 5 ML DROPS 1 DROP EYE-LEFT ×3 (09:08→09:09)
[2025-05-04] MEDS: Phenylephrine HCL 2.5% Oph SoL 2 ML BOTTLE 1 DROP EYE-LEFT ×3 (09:08→09:09)
[2025-05-04] MEDS: Tropicamide 1 % Ophth Sol 3 ML BTL 1 DROP EYE-LEFT ×3 (09:08→09:09)
--- NOTE | 2025-05-04 10:23 | MHC.SHP ---
Pre-Procedural Eval Section A - 24 Hr Update-Section A only Date of Service: 05/04/25 The patient is an INPATIENT: No Changes since office visit: No Cold of Flu in the past 2 weeks, No New Medical Problems, No Changes in Medication and No Patient answered all questions The patient has been examined within 24 hours of the surgical procedure. The History & Physical has been completed within 30 days and I have reviewed it.: Yes Section B - Complete if H&P > 30 days Chief Complaint: Age-related nuclear cataract, left eye Allergies: Allergies Allergy/AdvReac Type Severity Reaction Status Date / Time lisinopril Allergy Unknown cough Verified 05/04/25 09:17 Sulfa (Sulfonamide Allergy Unknown UNK, Verified 05/04/25 09:17 Antibiotics) unknown (SULFA(SULFONAMIDE ANTIBIOTICS)) Plan Diagnosis/Plan: Unchanged I have reviewed the history and physical and performed a pertinent physical examination on my patient. No changes have occurred unless specified. Time Spent With Patient Time: Total time managing care of this patient today ____ minutes.
--- NOTE | 2025-05-04 10:23 | HO.PNOPHT ---
Ophthalmology Procedure Procedure Date of Service: 05/04/25 Ophthalmology Viscoelastic: Healon Duet Dual Pack Pro Ophthalmology Lenses: IOL Acrysof MP - MA60AC (18.5) Procedure Notes: PREOPERATIVE DIAGNOSIS: Decreased visual acuity left eye secondary to cataract POSTOPERATIVE DIAGNOSIS: Same PROCEDURE: Left cataract extraction with intraocular lens insertion SURGEON: Michael Desai M.D. ANESTHESIA: Topical/MAC ESTIMATED BLOOD LOSS: None COMPLICATIONS: None After obtaining informed consent, the patient was brought to the operation room suite and placed in the supine position. After adequate sedation per anesthesia, topical drops of Tetracaine were given to the left eye. The eye was then prepped and draped in the usual sterile fashion. The operating room microscope was then positioned over the operative eye and a lid speculum placed. A paracentesis was created. Viscoelastic was then instilled into the anterior chamber. A three plane incision was then created temporally, utilizing a 2.85 mm keratome. Capsulotomy forceps were then utilized to create a circular tear capsulotomy. Hydrodissection and hydrodelineation were carried out until adequate mobilization of the nucleus occurred. Phacoemulsification was then utilized to remove the dense central nucleus followed by removal of the cortical material utilizing the automated aspiration irrigation unit. Viscoat elastic was instilled into the posterior capsular bag followed by placement of a posterior chamber intraocular lens without difficulty. The residual Viscoat elastic was then removed utilizing the automated IA machine. The wound was check and found to be watertight. The patient tolerated the procedure well and the lid speculum was removed. Intracameral injection of Vigamox 0.1 mL followed by a subtenon injection of Kenalog-40 0.2 mL were administered. The patient will be seen in the a.m.
[2025-05-04 10:47] VITALS: BP 154/104; PULSE 84; RESP 12; TEMP 36.1; O2SAT 100
== END 2025-05-04 10:57 | disposition home or self-care (01) ==
PROVIDERS: PCP Internal Medicine; Visit Provider Ophthalmology
PROC: (CPT 66985; principal; 2025-05-04 10:50)
DX: H25.12 Age-related nuclear cataract, left eye (principal); H52.4 Presbyopia; H40.013 Open angle with borderline findings, low risk, bilateral; H35.3131 Nonexudative age-related macular degeneration, bilateral, early dry stage; H18.413 Arcus senilis, bilateral; H11.153 Pinguecula, bilateral; I12.9 Hypertensive chronic kidney disease with stage 1 through stage 4 chronic kidney disease, or unspecified chronic kidney disease; N18.9 Chronic kidney disease, unspecified; R73.01 Impaired fasting glucose; N40.0 Benign prostatic hyperplasia without lower urinary tract symptoms; E78.5 Hyperlipidemia, unspecified; M81.0 Age-related osteoporosis without current pathological fracture; Z86.711 Personal history of pulmonary embolism; Z79.82 Long term (current) use of aspirin; Z79.899 Other long term (current) drug therapy; Z88.2 Allergy status to sulfonamides; Z88.8 Allergy status to other drugs, medicaments and biological substances
CPT/HCPCS: 66984; J2250; J3301; V2630

== ENCOUNTER 2025-05-05 14:52 | Outpatient (AMB) | payer BC, SELFPAY ==
--- NOTE | 2025-05-05 14:55 | A.OFFVIS_ITS ---
Intake Visit Reasons: OV- Left knee OA, last inj 11/11/24 Intake Note: Kenn is a 75 year old male who presents today for a follow up for his left knee OA, last injection 11/11/24. Patient reports his last injection lasted until about January of this year. He would like to repeat injection today. Allergies lisinopril Allergy (Unknown, Verified 05/04/25 09:17) cough Sulfa (Sulfonamide Antibiotics) (SULFA(SULFONAMIDE ANTIBIOTICS)) Allergy (Unknown, Verified 05/04/25 09:17) UNK, unknown HPI HPI OV- Left knee OA, last inj 11/11/24: Details: Mr. Melissa is a 75-year-old male who presents to the office today for follow up of chronic left knee pain due to osteoarthritis. He received a cortisone injection on 11/11/2024 which gave him relief. He is looking to repeat cortisone injection while in the office today. [facility] Medical History (Updated 04/26/25 @ 21:16 by Molly Foster MD) Otogenic otalgia of left ear History of pulmonary embolism Dyslipidemia (high LDL; low HDL) Impaired fasting glucose Left medial knee pain Pulmonary emphysema Non-toxic multinodular goiter BPH (benign prostatic hyperplasia) Ground glass opacity present on imaging of lung CKD (chronic kidney disease) Osteoporosis Hypertension Surgical History Hx of tonsillectomy History of prostate surgery History of appendectomy Family History Brother Coronary artery disease Sister Lung cancer Bone cancer Brain cancer Social History Household Members: Spouse Housing: House Are you a primary child care sitter to a significant other at home: No Do you presently have visiting nurse or other home services: No Alcohol intake: current Alcohol intake frequency: does not drink Alcohol type: wine Comment: heparin bolus Patient Tobacco Use Status: Never used Tobacco e-Cigarette/Vaping Use: Never Used Second Hand Smoke Exposure: No Advance Directives Date on File: 08/17/20 service: No Current occupational status: employed 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 Cognitive needs: No Hearing needs: No Vision needs: Yes Review of Systems Const All systems reviewed & are unremarkable except as noted in HPI and below Physical Exam Const General: cooperative and no acute distress Resp Effort & Inspection: normal respiratory effort and able to speak in complete sentences Psych Mental Status: mental status grossly normal Office Procedures AMB Joint Injection/Aspiration Joint Injection/Aspiration Primary Site: left knee Prep: site was prepped using aseptic technique, ethochloride spray was applied and injection warnings given Injected: 80 mg of, DepoMedrol, with 8 mL of (2% plain lidocaine) and in the joint Approach Used: anterolateral Procedure: The patient tolerated the procedure well, but had some pain with the injection and there was some relief with the local anesthesia Coding 71858 - Large joint Procedure code (CPT) selection complete Assessment & Plan Assessment & Plan (1) Osteoarthritis of left knee: Code(s): M17.12 - Unilateral primary osteoarthritis, left knee Category: Medical Qualifiers: Osteoarthritis type: unspecified Qualified Code(s): M17.12 - Unilateral primary osteoarthritis, left knee Plan The patient was offered a cortisone injection in the left knee with 80 mg of DepoMedrol. The patient was explained the risks, benefits, and alternatives to receiving this injection. After receiving consent for the injection, the patient had the procedure done while in the office today. The patient tolerated the procedure well with no complications. He will follow up PRN, sooner if needed. Coding Level of Care Code Est Pt Level 3 (07054) Diagnoses Osteoarthritis of left knee, unspecified osteoarthritis type M17.12 Osteoarthritis type: unspecified CPT Codes Coding - 18559 Large joint: 21060 - Large joint ([id number])
--- OUTSIDE RECORDS SUMMARY | 2025-05-05 16:14 | XMS_ITS | Patient Health Record ---
Author Organization [facility] Address [address] [place] [address] Care Team Providers Care Human Resources File Clerk Name Role Phone Kristin PRUITT, Molly Primary Care Provider Dre Lynn [phone] Allergies Allergen (clinical drug ingredient) Drug/Non Drug [...] Problem Status W/U Status Risk Notes Problem [id number] Encounter for screening for malignant neoplasm of colon (Z12.11) Active confirmed Problem 02838895 Irritable bowel syndrome without diarrhea (K58.9) Active confirmed Problem Screening for malignant neoplasm of rectum (141464315) Encounter for screening for malignant neoplasm of rectum (Z12.12) Active confirmed Problem 08897057 Preprocedural examination (Z01.818) Active confirmed Plan Of Treatment Future Test Test Name Order Date COLONOSCOPY 10/26/2015 Insurance Providers Payer Name Payer Address Payer Phone Subscriber Number Group Number Insured Name Patient Relationship to Insured Coverage Start Date Coverage End Date [facility] [address] [place] [address] [phone] [id number] ISI JULIO Self - patient is the insured Medical (General) History Medical History History ICD Code Screening colonoscopy 06-19-2005---neg. e xcept diverticulosis and hemorrhoids Irritable bowel syndrome--negative radha c disease labs in 2008 Hypertension--currently off meds Denies ND,DM,CVA,Lung disease,renal dise ase BPH Gout Surgical History Surgery Date(Month/Year) appendectomy-Dr. Urena 01/2012 Prostate for BPH
--- OUTSIDE RECORDS SUMMARY | 2025-05-05 16:14 | XMS_ITS | Clinical Summary ---
Author Organization [facility] Facility Address [address] [address] Care Team Providers Care Tripe Washer Name Role Phone Douglas Foster MD Primary Care Provider [phone] Allergies Active Allergy Reactions Criticality Noted Date [...] Colorectal Cancer Screening: Sigmoidoscopy 2000 Influenza Vaccine (#1) 2025 Hepatitis B Vaccine Aged Out No longe r eligible based on patient's age to complete this topic Insurance [employer] Care Teams Tripe Washer Relationship Specialty Start Date End Date Douglas Foster MD 1960 [facility] [place] [address] PCP - General 11/01/20
== END 2025-05-05 15:06 | disposition home or self-care (01) ==
LOC: HO.HOS 14:53
PROVIDERS: PCP Internal Medicine; Visit Provider Physician Assistant
DX: M17.12 Unilateral primary osteoarthritis, left knee (principal)
CPT/HCPCS: 20610; 99213

== ENCOUNTER → 2025-05-05 14:52 | Outpatient (BNVA) | payer BC, SELFPAY | PROVIDERS: PCP Internal Medicine; Visit Provider Physician Assistant | DX: M17.12 Unilateral primary osteoarthritis, left knee (principal) | CPT/HCPCS: 20610; J1010; J2003 ==

== ENCOUNTER 2025-05-18 06:36 | Day surgery (SDC) | payer BC, SELFPAY ==
--- OUTSIDE RECORDS SUMMARY | 2025-03-30 07:43 | XMS_ITS | Clinical Summary ---
Author Organization [facility] Facility Address [address] [address] Care Team Providers Care Customs Inspector Name Role Phone Douglas Foster MD Primary Care Provider +1- [phone] Allergies Active Allergy Reactions Criticality Noted Date [...] patient's age to complete this topic Insurance [email or web address] Care Teams Customs Inspector Relationship Specialty Start Date End Date Douglas Foster MD 1960 [place] [address] PCP - General 11/01/20
[2025-04-28 07:37] VITALS: BMI 30.9
--- NOTE | 2025-05-15 10:26 | HO.ANESPROP2 ---
Documented by User: Gabriela Holman NP 05/15/25 10:26 HPI - Anesthesia Eval Consult details Narrative: 75 yr old male for right cataract extraction IOL insertion s/p left eye 05/04/25 [facility] Active Problems Active Problems: All Active Problems Dyslipidemia (high LDL; low HDL) (Acute) Osteoarthritis of left knee (Acute) Impaired fasting glucose (Acute) Non-toxic multinodular goiter (Acute) BPH (benign prostatic hyperplasia) (Acute) Osteoporosis (Acute) CKD (chronic kidney disease) (Acute) Hypertension (Chronic) Past Medical History Medical History (Updated 04/26/25 @ 21:16 by Molly Foster MD) Otogenic otalgia of left ear History of pulmonary embolism Dyslipidemia (high LDL; low HDL) Impaired fasting glucose Left medial knee pain Pulmonary emphysema Non-toxic multinodular goiter BPH (benign prostatic hyperplasia) Ground glass opacity present on imaging of lung CKD (chronic kidney disease) Osteoporosis Hypertension Family History Family History Brother Coronary artery disease Sister Lung cancer Bone cancer Brain cancer Family history of problems with anesthesia: No Surgical History Surgical History Hx of tonsillectomy History of prostate surgery History of appendectomy History of Problems with Anesthesia: No Social History Social History Household Members: Spouse Housing: House Are you a primary small animal caretaker to a significant other at home: No Do you presently have visiting nurse or other home services: No Alcohol intake: current Alcohol intake frequency: does not drink Alcohol type: wine Comment: heparin bolus Patient Tobacco Use Status: Never used Tobacco e-Cigarette/Vaping Use: Never Used Second Hand Smoke Exposure: No Use of substances other than those prescribed or required for medical reasons: No Have you been hit, kicked, punched, or otherwise hurt by someone within the past year? 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 Cognitive needs: No Hearing needs: No Vision needs: Yes Meds Allergies Allergy/AdvReac Type Severity Reaction Status Date / Time lisinopril Allergy Unknown cough Verified 05/18/25 06:51 Sulfa (Sulfonamide Allergy Unknown UNK, Verified 05/18/25 06:51 Antibiotics) unknown (SULFA(SULFONAMIDE ANTIBIOTICS)) Home Medications ?Medication ?Instructions ?Recorded ?Confirmed ?Last Taken ?Type acetaminophen 500 mg tablet 500 mg PO Q6H PRN Pain 08/26/20 04/28/25 Unknown History (Tylenol Extra Strength) calcium 315 mg (as 2 tab PO DAILY 08/26/20 04/28/25 Unknown History citrate)-vitamin D3 6.25 mcg (250 unit) tablet (Citracal + Vitamin D Maximum) wctysvckcriv-xebogpjb-nadcrk tablet 1 tab PO DAILY 09/29/20 04/28/25 Unknown History aspirin 81 mg tablet,delayed 81 mg PO DAILY 01/03/21 05/18/25 05/17/25 History release (Adult Low Dose Aspirin) vitamins A,C,Q-smji-xbfxmg 4,296 1 cap PO BID 04/22/25 04/28/25 Unknown History mcg-226 mg-90 mg capsule (PreserVision AREDS) Exam Height,Weight and Vital Signs: Height 5 ft 9 in Weight 94.801 kg Assessment and Plan Final Anesthetic Review Family History of Problems with Anesthesia: No History of Problems with Anesthesia: No Documented by User: Brenda Guzman MD 05/18/25 07:38 [facility] Past Medical History Medical History (Updated 04/26/25 @ 21:16 by Molly Foster MD) Otogenic otalgia of left ear History of pulmonary embolism Dyslipidemia (high LDL; low HDL) Impaired fasting glucose Left medial knee pain Pulmonary emphysema Non-toxic multinodular goiter BPH (benign prostatic hyperplasia) Ground glass opacity present on imaging of lung CKD (chronic kidney disease) Osteoporosis Hypertension Family History Family History Brother Coronary artery disease Sister Lung cancer Bone cancer Brain cancer Surgical History Surgical History Hx of tonsillectomy History of prostate surgery History of appendectomy Social History Social History Household Members: Spouse Housing: House Are you a primary small animal caretaker to a significant other at home: No Do you presently have visiting nurse or other home services: No Alcohol intake: current Alcohol intake frequency: does not drink Alcohol type: wine Comment: heparin bolus Patient Tobacco Use Status: Never used Tobacco e-Cigarette/Vaping Use: Never Used Second Hand Smoke Exposure: No Use of substances other than those prescribed or required for medical reasons: No Have you been hit, kicked, punched, or otherwise hurt by someone within the past year? 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 Cognitive needs: No Hearing needs: No Vision needs: Yes Meds Allergies Allergy/AdvReac Type Severity Reaction Status Date / Time lisinopril Allergy Unknown cough Verified 05/18/25 06:51 Sulfa (Sulfonamide Allergy Unknown UNK, Verified 05/18/25 06:51 Antibiotics) unknown (SULFA(SULFONAMIDE ANTIBIOTICS)) Home Medications ?Medication ?Instructions ?Recorded ?Confirmed ?Last Taken ?Type acetaminophen 500 mg tablet 500 mg PO Q6H PRN Pain 08/26/20 04/28/25 Unknown History (Tylenol Extra Strength) calcium 315 mg (as 2 tab PO DAILY 08/26/20 04/28/25 Unknown History citrate)-vitamin D3 6.25 mcg (250 unit) tablet (Citracal + Vitamin D Maximum) xizcocombseq-izmrbrjw-zubyvf tablet 1 tab PO DAILY 09/29/20 04/28/25 Unknown History aspirin 81 mg tablet,delayed 81 mg PO DAILY 01/03/21 05/18/25 05/17/25 History release (Adult Low Dose Aspirin) vitamins A,C,T-plwf-kbktte 4,296 1 cap PO BID 04/22/25 04/28/25 Unknown History mcg-226 mg-90 mg capsule (PreserVision AREDS) Exam Airway Mallampati Class: III TM Dist: >3cm Neck ROM: Full Loose/Missing/Broken Teeth: No Heart: RRR Lungs: CTA Assessment and Plan Assessment Anesthesia Assessment: Anesthesia Plan Discussed and Chart Reviewed Final Anesthetic Review NPO: Yes ASA Class: III Final Preanesthetic Review: Meds/Allgs Chart Reviewed, Consent Obtained/Reviewed and Anes Risks/Benef Reviewed Patient Risk: Intermediate Procedure Risk: Low Anesthetic Plan Anesthetic Plan: MAC: Disposition: Standard PACU
[2025-05-18 06:52] VITALS: BP 146/82; PULSE 75; RESP 14; TEMP 36.6; O2SAT 98
[2025-05-18] MEDS: Phenylephrine HCL 2.5% Oph SoL 2 ML BOTTLE 1 DROP EYE-RIGHT ×3 (07:00→07:10)
[2025-05-18] MEDS: Lactated Ringers 500 ML 50 ML IV (07:01)
[2025-05-18] MEDS: Tetracaine HCl/PF 0.5% Oph Sol 4 ML DROPS 1 DROP EYE-RIGHT (07:02)
[2025-05-18] MEDS: Cyclopentolate 1 % Ophth Sol 2 ML DRPBTL 1 DROP EYE-RIGHT ×3 (07:04→07:09)
[2025-05-18] MEDS: Tropicamide 1 % Ophth Sol 3 ML BTL 1 DROP EYE-RIGHT ×3 (07:04→07:09)
[2025-05-18] MEDS: Ketorolac Tromethamine 0.5% Op 5 ML DROPS 1 DROP EYE-RIGHT ×3 (07:05→07:09)
--- NOTE | 2025-05-18 07:22 | MHC.SHP ---
Pre-Procedural Eval Section A - 24 Hr Update-Section A only Date of Service: 05/18/25 The patient is an INPATIENT: No Changes since office visit: No Cold of Flu in the past 2 weeks, No New Medical Problems, No Changes in Medication and No Patient answered all questions The patient has been examined within 24 hours of the surgical procedure. The History & Physical has been completed within 30 days and I have reviewed it.: Yes Section B - Complete if H&P > 30 days Chief Complaint: Age-related nuclear cataract, right eye Allergies: Allergies Allergy/AdvReac Type Severity Reaction Status Date / Time lisinopril Allergy Unknown cough Verified 05/18/25 06:51 Sulfa (Sulfonamide Allergy Unknown UNK, Verified 05/18/25 06:51 Antibiotics) unknown (SULFA(SULFONAMIDE ANTIBIOTICS)) Plan Diagnosis/Plan: Unchanged I have reviewed the history and physical and performed a pertinent physical examination on my patient. No changes have occurred unless specified. Time Spent With Patient Time: Total time managing care of this patient today ____ minutes.
--- NOTE | 2025-05-18 07:55 | P.PCNO_ITS ---
Ophthalmology Procedure Procedure Date of Service: 05/18/25 Ophthalmology Viscoelastic: Healon Duet Dual Pack Pro Ophthalmology Lenses: IOL Acrysof MP - MA60AC (14.5) Procedure Notes: PREOPERATIVE DIAGNOSIS: Decreased visual acuity right eye secondary to cataract POSTOPERATIVE DIAGNOSIS: Same PROCEDURE: Right cataract extraction with intraocular lens insertion SURGEON: Michael Desai M.D. ANESTHESIA: Topical/MAC ESTIMATED BLOOD LOSS: None COMPLICATIONS: None After obtaining informed consent, the patient was brought to the operating room suite and placed in the supine position. After adequate sedation per anesthesia, topical drops of Tetracaine were given to the right eye. The eye was then prepped and draped in the usual sterile fashion. The operating room microscope was then positioned over the operative eye and a lid speculum placed. A paracentesis was created. Viscoelastic was then instilled into the anterior chamber. A three plane incision was then created temporally, utilizing a 2.85 mm keratome. Capsulotomy forceps were then utilized to create a circular tear capsulotomy. Hydrodissection and hydrodelineation were carried out until adequate mobilization of the nucleus occurred. Phacoemulsification was then utilized to remove the dense central nu cleus followed by removal of the cortical material utilizing the automated aspiration irrigation unit. Viscoelastic was instilled into the posterior capsular bag followed by placement of a posterior chamber intraocular lens without difficulty. The residual Viscoelastic was then removed utilizing the automated IA machine. The wound was checked and found to be watertight. The patient tolerated the procedure well and the lid speculum was removed. Intracameral injection of Vigamox 0.1 mL followed by a subtenon injection of Kenalog-40 0.2 mL were administered. The patient will be seen in the a.m.
[2025-05-18 08:25] VITALS: BP 150/95; PULSE 79; RESP 18; TEMP 36.6; O2SAT 97
== END 2025-05-18 08:28 | disposition home or self-care (01) ==
PROVIDERS: PCP Internal Medicine; Visit Provider Ophthalmology
PROC: (CPT 66985; principal; 2025-05-18 08:30)
DX: H25.11 Age-related nuclear cataract, right eye (principal); H52.4 Presbyopia; H40.013 Open angle with borderline findings, low risk, bilateral; H35.3131 Nonexudative age-related macular degeneration, bilateral, early dry stage; H18.413 Arcus senilis, bilateral; H11.153 Pinguecula, bilateral; I10 Essential (primary) hypertension; Z86.711 Personal history of pulmonary embolism; M81.0 Age-related osteoporosis without current pathological fracture; Z79.82 Long term (current) use of aspirin; Z79.899 Other long term (current) drug therapy; Z88.2 Allergy status to sulfonamides; Z88.8 Allergy status to other drugs, medicaments and biological substances
CPT/HCPCS: 66984; J2250; J3301; V2630

== ENCOUNTER 2025-06-03 09:17 | Outpatient (AMB) | payer BC, SELFPAY ==
--- NOTE | 2025-06-03 09:19 | MHC.PC.OV ---
Vital Signs 06/03/25 09:24 Height 5 ft 10 in Weight 203 lb BMI 29.1 BP 122/80 Blood Pressure Location Lt brachial Position Sitting Respiration 17 Pulse 84 Pulse Source Pulse Oximeter Temp 98.4 F Temp Source Oral Pulse Oximetry (%) 97 Oxygen Delivery Method Room Air Intake Visit Reasons: PE per AE Intake Note: Pt is here today for his PE: last bone density scan 09/02/24, colonoscopy 12/15/15 Allergies lisinopril Allergy (Unknown, Verified 06/03/25 09:47) cough Sulfa (Sulfonamide Antibiotics) (SULFA(SULFONAMIDE ANTIBIOTICS)) Allergy (Unknown, Verified 06/03/25 09:47) UNK, unknown Medication List - Last Reconciled 06/03/25 by Molly Foster MD acetaminophen (Tylenol Extra Strength) 500 mg PO Q6H PRN aspirin (Adult Low Dose Aspirin) 81 mg PO DAILY calcium citrate-vitamin D3 315 mg-6.25 mcg (250 unit) (Citracal + Vitamin D Maximum) 2 tabs PO DAILY cetirizine 10 mg PO BEDTIME PRN colchicine 0.6 mg PO DAILY PRN losartan 50 mg PO DAILY nganideiutqi-yisnnyzd-kieudx 1 tab PO DAILY rosuvastatin 5 mg PO DAILY 90 days vitamins A,C,L-qcrz-jorzrr 4,296 mcg-226 mg-90 mg (PreserVision AREDS) 1 cap PO BID Tobacco use date assessed: 06/03/25 Fall risk assessment: No Falls in past year Last assessed Fall Risk: 06/03/25 Dental Screening Dental Screen Date: 06/03/25 Did you have a dental visit in the last 12 months?: Yes Did you have a dental problem in the last 6 months where you did not have access to dental care?: Yes Was dental information given to patient?: Patient has dentist HPI PE per AE HPI Details - The patient is a 75-year-old male presenting today for his physical exam. - The patient reports recurrent sinus infections, with two significant episodes in the past year - he has hyperlipidemia, with recent tests showing elevated cholesterol levels and decreased HDL cholesterol, attributed to reduced physical activity. - he has osteoporosis currently followed by Dr. Olguin, -has stage IIIB chronic kidney disease due to hypertension currently followed by Dr. Leung -he is up-to-date with his colon cancer screening, with colonoscopy due again next year with Dr. Martin -up-to-date with all recommended vaccines -. [facility] Medical History History of pulmonary embolism Dyslipidemia (high LDL; low HDL) Impaired fasting glucose Left medial knee pain Pulmonary emphysema Non-toxic multinodular goiter BPH (benign prostatic hyperplasia) CKD (chronic kidney disease) Osteoporosis Hypertension Surgical History Hx of tonsillectomy History of prostate surgery History of appendectomy Family History Brother Coronary artery disease Sister Lung cancer Bone cancer Brain cancer Social History Household Members: Spouse Housing: House Are you a primary respiratory care program director to a significant other at home: No Do you presently have visiting nurse or other home services: No Alcohol intake: current Alcohol intake frequency: does not drink Alcohol type: wine Comment: heparin bolus Patient Tobacco Use Status: Never used Tobacco e-Cigarette/Vaping Use: Never Used Second Hand Smoke Exposure: No Advance Directives Date on File: 08/17/20 service: No Current occupational status: employed 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 Cognitive needs: No Hearing needs: No Vision needs: Yes Questionnaire Thrive Questionnaire Date Thrive assessed: 04/18/25 I am a: Patient What is your living situation today?: I have a steady place to live Within the past 12 months, did the food you bought not last and you didn't have the money to get more?: Often true Within the past 12 months, did you worry whether your food would run out before you got money to buy more?: Never true Do you have trouble paying for medicines?: No Do you have trouble getting transportation to medical appointments?: I choose not to answer this question Do you have trouble paying your heating and electricity bill?: No Do you have trouble taking care of your child, family member or friend?: No Do you have trouble with day-to-day activities such as bathing, preparing meals, shopping, managing finances, etc.?: No Are you currently unemployed and looking for a job?: No Are you interested in more education?: No Please select the resources that you would like help with: None Currently or been in a relationship where the following occur: No concerns reported THRIVE Score: 1 AUDIT C Alcohol Use Questionnaire (AUDIT-C) 3. How often do you have six or more drinks on one occasion?: Never Total Score: 0 AMANDA-7 AMB Questionnaire AMANDA-7 Date AMANDA - 7 assessed: 04/23/25 Source: Developed by Drs. Dre Gallegos, Mary Bui, Alan Santos and colleagues, with an educational lesvia from [employer]. Review of Systems Const Reports no additional complaints Eyes Denies change in vision ENT Reports no additional complaints Card Denies chest pain, Denies irregular heart rhythm and Denies leg edema Resp Reports no additional complaints GI Reports no additional complaints Reports no additional complaints Musc Reports arthralgias (mild) Skin/Breast Denies rash Neuro Reports no additional complaints Psych Reports no additional complaints Endo Reports no additional complaints Deven/Lymph Reports no additional complaints Aller/Immun Reports no additional complaints Physical exam (Primary Care) Vital Signs: Last Vital Signs Temp 98.4 F 06/03/25 09:24 Pulse 84 06/03/25 09:24 Resp 17 06/03/25 09:24 BP 122/80 06/03/25 09:24 Pulse Ox 97 06/03/25 09:24 Oxygen Delivery Method Room Air 06/03/25 09:24 BMI result Body Mass Index 29.1 Tobacco/Smoking Status: Tobacco use Status Tobacco use date assessed 06/03/25 06/03/25 09:20 Patient Tobacco Use Status Never used Tobacco 06/03/25 09:20 e-Cigarette/Vaping Use Never Used 06/03/25 09:20 Thrive Assessment: Date of Thrive Assessment Date Thrive assessed 04/18/25 06/03/25 09:20 Currently or been in a relationship where the following occur: No concerns reported Advance Care Planning discussion: Completed/Scanned Date of discussion: 06/03/25 Who was present: patient Forms completed: MOLST (Patient states that he will provide copy of healthcare proxy) Time spent: 16-45 minutes Actual minutes spent: 3 Const Orientation/consciousness: patient oriented x3 HENMT Head: Yes normocephalic Ears: TM's normal bilaterally General nose exam: Normal external nose present Face and sinus: Yes face symmetric Mouth: Normal oral and palatal mucosa present, oropharynx normal and moist mucous membranes Eyes General: appearance normal, both eyes and all related structures Neck Other: Supple, no lymphadenopathy, thyroid gland nonpalpable Resp Auscultation: clear to auscultation bilaterally Cardio Other: S1-S2 present regular rate and rhythm GI Palpation (GI): Soft to palpation, nontender, no guarding and no masses Auscultation: normal bowel sounds General: Yes no CVA tenderness Back/Spine/Pelvis Back: no CVA tenderness, No mass and No back tenderness Skin General skin exam: no rashes or lesions noted Neuro General: patient oriented x3, gait normal, tone normal, moves all extremities, Normal light touch and pain sensation, no focal motor deficits and CN's II-XI intact bilaterally Extrem General: Yes full ROM, Yes no joint enlargement, Yes no clubbing, cyanosis or edema and Yes normal gait Psych Appearance: grossly normal and well kempt Mental Status: mental status grossly normal Speech and movement: Normal speech and movement present Affect: normal affect Results Reviewed Results Reviewed: Name: Kenn Melissa Age/Sex: 75/M : 1950 Unit#: [id number] Attend Dr: Molly Foster MD Re04/18/25 Status: DEP REF Location: [facility] Disch: SPEC : [id number] ECHO: 04/18/25-799 STATUS: COMP REQ : [id number] RECD: 04/18/25-[address]: Molly Foster MD COMP: 04/18/25-1136 ENTERED: 04/18/25-[address] [facility] [address]: ORDERED: Met Prof Fast, AST, ALT, Lipid Panel Test Result Flag Reference Sodium 141 135-145 mmol/L Potassium 4.7 3.3-5.1 mmol/L CL 109 H 96-108 mmol/L CO2 25 22-29 mmol/L Gap 12 12-20 BUN 24 H 9-16 mg/dL Creat 1.74 H 0.5-1.4 mg/dL eGFR 39 Chronic Kidney Disease: Estimated GFR < 60 mL/min/1.73m2 Severe Kidney Disease: Estimated GFR < 15 mL/min/1.73m2 FBS 115 H 60-99 mg/dL A fasting glucose from 100-125 mg/dl is considered impaired (pre-diabetes). CA 9.5 8.4-10.2 mg/dL AST (GOT) 26 5-37 U/L ALT (GPT) 34 0-40 U/L Triglyceride 144 <150 mg/dL Desirable Triglyceride: less than 150 mg/dL Borderline High Triglyceride 150-199 mg/dL High Triglyceride: 200-499 mg/dL Very High Triglyceride: greater than or equal to 5OO mg/dL Cholesterol 180 <200 mg/dL Desirable Cholesterol: less than 200 mg/dL Borderline High Cholesterol: 200-239 mg/dL High Cholesterol: greater than 239 mg/dL LDL Calculated 114 H <100 mg/dL Desirable LDL: less than 100 mg/dL Near Optimal/Above Optimal LDL: 110-129 mg/dL Borderline High LDL: 130-159 mg/dL High LDL: 160-189 mg/dL Very High LDL: greater than or equal to 190 mg/dL HDL 38 L >40 mg/dL Desirable HDL: greater than 40 mg/dL Note: This HDL assay may give artificially low results in patients with liver disease. Laboratory Tests 04/18/25 08:00 Estimat Average Glucose 111 Hemoglobin A1c % 5.5 Coding Level of Care Code Est Pt Prev Care >65y(69787) Diagnoses Annual visit for general adult medical examination with abnormal findings Z00.01 Primary hypertension I10 Hypertension type: primary hypertension Dyslipidemia (high LDL; low HDL) E78.5 Impaired fasting glucose R73.01 Age-related osteoporosis without current pathological fracture M81.0 Osteoporosis type: age-related Presence of current pathological fracture: without current pathological fracture Stage 3a chronic kidney disease N18.31 Chronic kidney disease stage: stage 3 (moderate) Chronic kidney disease stage 3 subtype: stage 3a (GFR 45-59) Osteoarthritis of left knee, unspecified osteoarthritis type M17.12 Osteoarthritis type: unspecified Advance directive discussed with patient Z71.89 Recurrent sinusitis J32.9 History of gout Z87.39 Additional Codes Vital Signs *Quality* - Advance Care Planning discussion: Completed/Scanned ([id number]) Vital Signs *Quality* - Time spent: 16-45 minutes ([id number]) Assessment & Plan Assessment & Plan (1) Annual visit for general adult medical examination with abnormal findings: Code(s): Z00.01 - Encounter for general adult medical examination with abnormal findings Plan: Reviewed recent fasting lab results with patient.. Recommended dental visit every 6 months and regular eye exams, at least every 2 years. Take adequate calcium in diet and vitamin-D 3 at 2000 IU per cap once a day, in addition to weight-bearing exercises to help maintain good muscle tone and weight control. Instructed to do self-testicular exam check for any mass. Up-to-date with his colon cancer screening, and vaccines (2) Hypertension: Code(s): I10 - Essential (primary) hypertension Category: Medical Qualifiers: Hypertension type: primary hypertension Qualified Code(s): I10 - Essential (primary) hypertension Plan: Blood pressure at goal of less than 130/80. Continue with losartan 50 mg daily Reinforced importance of following a low sodium diet, getting regular exercise, and lowering stress levels. (3) Dyslipidemia (high LDL; low HDL): Code(s): E78.5 - Hyperlipidemia, unspecified Category: Medical Plan: Recent fasting lab results reviewed with patient with lipids within normal limits, continue statin 5 mg daily (4) Impaired fasting glucose: Code(s): R73.01 - Impaired fasting glucose Category: Medical Plan: Your previous fasting blood sugars were elevated above 100 mg/dL. Latest hemoglobin A1c is at 5.5%. Impaired glucose metabolism increases the risk for developing diabetes mellitus type 2, as well as heart attack and stroke later on. Lifestyle changes that promotes weight loss, healthy eating habits, and regular exercise are important, and can prevent the progression to diabetes (5) Osteoporosis: Comment: Currently being followed by Dr. OLGUIN Code(s): M81.0 - Age-related osteoporosis without current pathological fracture Category: Medical Qualifiers: Osteoporosis type: age-related Presence of current pathological fracture: without current pathological fracture Qualified Code(s): M81.0 - Age-related osteoporosis without current pathological fracture Plan: Currently followed by Dr. Olguin (6) CKD (chronic kidney disease): Comment: Followed by Dr. Leung Code(s): N18.9 - Chronic kidney disease, unspecified Category: Medical Qualifiers: Chronic kidney disease stage: stage 3 (moderate) Chronic kidney disease stage 3 subtype: stage 3a (GFR 45-59) Qualified Code(s): N18.31 - Chronic kidney disease, stage 3a Plan: Followed by Dr. Leung, continued on losartan 50 mg daily, avoidance of NSAIDs (7) Osteoarthritis of left knee: Code(s): M17.12 - Unilateral primary osteoarthritis, left knee Category: Medical Qualifiers: Osteoarthritis type: unspecified Qualified Code(s): M17.12 - Unilateral primary osteoarthritis, left knee Plan: Takes Tylenol extra strength every 6 hours as needed for joint pain (8) Advance directive discussed with patient: Code(s): Z71.89 - Other specified counseling Plan: Initiated the conversation about Advanced Directives. Advanced Directives help patients prepare for current and future decisions about their medical treatment and place of care. Discussed with patient that it is a process where a patients current condition and prognosis are reviewed, their wishes for information regarding their illness are elicited, and likely medical dilemmas are presented and options discussed. MOLST form completed today. Patient states he will provide a copy of his healthcare proxy The form can be amended as needed, reviewed yearly and make changes as needed (9) Recurrent sinusitis: Code(s): J32.9 - Chronic sinusitis, unspecified Plan: Patient requesting referral to ENT for recurrent sinus infection this past year. Referral ordered (10) History of gout: Code(s): Z87.39 - Personal history of other diseases of the musculoskeletal system and connective tissue Plan: Requesting refill for colchicine , just wants to have it on hand in case he has another attack , which has been occurring infrequently Orders: Orders Lipid Panel 6 Months E78.5 - Hyperlipidemia, unspecified Alanine Aminotransferase 6 Months E78.5 - Hyperlipidemia, unspecified Aspartate Amino Transferase 6 Months E78.5 - Hyperlipidemia, unspecified Referrals Ear/Nose/Throat Referral J32.9 - Chronic sinusitis, unspecified Medications: Refilled colchicine 0.6 mg PO DAILY PRN 30 tabs 1RF GOUT
[2025-06-03 09:24] VITALS: BP 122/80; PULSE 84; RESP 17; TEMP 36.9; O2SAT 97; BMI 29.1
--- OUTSIDE RECORDS SUMMARY | 2025-06-03 09:41 | XMS_ITS | Clinical Summary ---
Author Organization [facility] Facility Address [address] [address] Care Team Providers Care Plant Etiologist Name Role Phone Douglas Foster MD Primary Care Provider [phone] Allergies Active Allergy Reactions Criticality Noted Date [...] patient's age to complete this topic Insurance [employer] Care Teams Plant Etiologist Relationship Specialty Start Date End Date Douglas Foster MD 1960 [facility] [place] [id number] PCP - General 11/01/20
== END 2025-06-03 10:14 | disposition home or self-care (01) ==
LOC: HO.HMCC 09:18
PROVIDERS: PCP Internal Medicine; Visit Provider Internal Medicine
DX: Z00.00 Encounter for general adult medical examination without abnormal findings (principal); I12.9 Hypertensive chronic kidney disease with stage 1 through stage 4 chronic kidney disease, or unspecified chronic kidney disease; N18.31 Chronic kidney disease, stage 3a; E78.5 Hyperlipidemia, unspecified; R73.01 Impaired fasting glucose; M81.0 Age-related osteoporosis without current pathological fracture; M17.12 Unilateral primary osteoarthritis, left knee; Z71.89 Other specified counseling; J32.9 Chronic sinusitis, unspecified; Z87.39 Personal history of other diseases of the musculoskeletal system and connective tissue